=== PATIENT | female | born 1965 | race Caucasian/White ===

== ENCOUNTER 2018-01-17 15:33 | Emergency (ER) | payer BC, SELFPAY ==
--- NOTE | 2018-01-17 15:33 | DT_ITS ---
This patient was seen during an EMR downtime January 10, 2018 - January 17, 2018. This patient may have a combination of paper and electronic documentation or all paper documentation. All documentation is viewable within the e-chart portion of [employer] for each patient visit.
[2018-01-17 15:34] VITALS: BP 114/80; PULSE 68; RESP 16; TEMP 36; O2SAT 97; BMI 25.4
--- NOTE | 2018-01-17 15:46 | ED.DCSUM_ITS ---
- ER Visit Summary Date of Service: 01/17/18 Chief Complaint: Left foot injury History of Present Illness: The patient is a 52 F who was helping her tear apart a wooden deck 3 days ago. She states she was using a large tool with a crowbar 1 and and a heavy hammer on the other. The hammer end of the tool came down landing on her left foot. She was wearing rubber boots at the time. She continues to have pain of the distal aspect of her left foot. She is not taking anything for pain. Physical Examination: Vital signs are unremarkable. Patient sitting upright in bed no acute distress. Physical examination significant for lower extremity which reveals tenderness palpation over the distal portion of the midfoot on the left as well as the first and second toes. There are some superficial abrasions on the first and second toes. There is normal cap refill. There is no tenderness the ankle. Test Results: Left foot x-rays reveal no evidence of fracture or dislocation. Emergency Department Course and Treatment: Patient is given naproxen for pain. Test results were discussed with patient and family at bedside. She be given a postop shoe. She declines need for crutches. Treatment Plan: [] Disposition: Discharge Impression: Crush injury left foot This note was generated with [employer] dictation software. It may contain incorrect words, spelling, and punctuation that were not noted in review of the chart prior to signing ED Disposition - Plan for ED Patient: Chief Complaint: Lower Extremity Injury Referrals: Ezequiel Najera MD [Primary Care Provider] -
--- NOTE | 2018-01-17 16:15 | RAD_ITS ---
STUDY: X-RAY - LEFT FOOT CLINICAL: Female, 52 years old. Pain TECHNIQUE: 3 view(s) of the foot. COMPARISON: None. FINDINGS: There is no evidence of fracture or dislocation. There are no significant degenerative changes. There are no radiodense foreign bodies. RAD/Foot min 3 Views IMPRESSION: No fracture or dislocation. Electronically Signed: Jerardo Robbins, at 16:44 EDT Tel , Service support ,
[2018-01-17] MEDS: Naproxen 500 MG Tablet PO (16:43)
--- NOTE | 2018-01-17 17:04 | ED.DEP ---
ED Disposition - Plan for ED Patient: Disposition: Home or Assisted Living Chief Complaint: Lower Extremity Injury Instructions: ED Crush Injury Toe No Fx Referrals: Ezequiel Najera MD [Primary Care Provider] - 1 Week if not improving
== END 2018-01-17 17:21 | disposition home or self-care (01) ==
PROVIDERS: Emergency Provider Emergency Medicine; Family Provider Family Medicine; PCP Family Medicine
DX: S90.412A Abrasion, left great toe, initial encounter (principal); S90.415A Abrasion, left lesser toe(s), initial encounter; X58.XXXA Exposure to other specified factors, initial encounter; Y93.89 Activity, other specified; Y92.9 Unspecified place or not applicable; Y99.9 Unspecified external cause status; Z79.899 Other long term (current) drug therapy
CPT/HCPCS: 73630; 99283

== ENCOUNTER 2018-02-15 08:22 | Day surgery (SDC) | payer BC, SELFPAY ==
--- NOTE | 2018-02-15 | IMM_PTH ---
PATIENT: CHANCE MCFARLAND LOC: [facility] U#:[id number] AGE/SX: 52/F ROOM: RE02/15/[address]: Dr. Isaías Hayward MD : 1965 BED: DIS: 02/15/2018 SPEC #: [id number] RECD: 02/16/18 13:49 STATUS: DARIUSZ LEROY #: [id number] LILIAN: 02/15/18 00:[address]: Isaías Hayward DEPT: IMMUNOHISTOCHEMISTRY RECD BY: Brittany Stuart ENTERED: 02/16/18 13:49 SP TYPE: IMMUNO OTHR DR: Dr. Ezequiel Najera MD Tissues: A - Pylorus Procedures: H Pylori (initial) PHYSICIAN & INSTITUTION [place] [id number] SPECIMEN INFORMATION: Tissue Source: A ? Pyloric biopsy Clinical Info: GERD Specimen Number: [id number] CPT code: 89418 METHODOLOGY: Deparaffinized sections of prefer/formalin-fixed tissue or PAP/DQ stained slides are incubated with monoclonal/polyclonal antibodies/oligonucleotide probes. Localization is made via biotin free immunoperoxidase method. Appropriate controls are performed and reacted as expected. Results on target cell population are indicated in the following table: RESULTS: ANTIBODY / CLONE RESULT Block A H Pylori (polyclonal) negative These tests were developed and their performance characteristics determined by [facility]. They may not have been cleared or approved by the U.S. Food and Drug Administration. The FDA has determined that such clearance or approval is not necessary. INTERPRETATION: A. Pyloric biopsy: Negative for Helicobacter pylori organisms. SJ:neyda 02/16/18
[2018-02-15 08:47] VITALS: BP 114/69; PULSE 50; RESP 16; TEMP 36.7; O2SAT 98; BMI 24.7
--- NOTE | 2018-02-15 09:30 | COLBX_PTH ---
PATIENT: CHANCE MCFARLAND LOC: [facility] U#:[id number] AGE/SX: 52/F ROOM: RE02/15/[address]: Dr. Isaías Hayward MD : 1965 BED: DIS: 02/15/2018 SPEC #: [id number] RECD: 02/15/18 12:37 STATUS: DARIUSZ LEROY #: [id number] LILIAN: 02/15/18 09:[address]: Isaías Hayward DEPT: SURGICAL PATHOLOGY RECD BY: Sabina Hilton ENTERED: 02/15/18 14:17 SP TYPE: COLON BX OTHR DR: Dr. Ezequiel Najera MD Tissues: A - Pyloric portion of stomach B - Sigmoid colon biopsy Procedures: Special Stain Group II Surgery Specimen Level IV Alcian Blue/PAS (control) HEADER OPERATION: Colonoscopy, EGD ([facility] [place] PRE-OP DIAGNOSIS: GERD with esophagitis, screening for colon cancer TISSUE SUBMITTED: A. Pyloric biopsy, B. Sigmoid polyp MICROSCOPIC DIAGNOSIS A. Pyloric biopsy: Mild gastritis. Focal intestinal metaplasia. See microscopic description and comment. B. Sigmoid polyp, biopsy: Fragments of colonic mucosa, no pathologic diagnosis. SJ:neyda 02/16/18 COMMENT A. The results of immunohistochemistry for Helicobacter pylori will be reported separately ([id number]). Alcian blue/PAS stain with matched control is used in the evaluation of the specimen. MICROSCOPIC DESCRIPTION Slides are reviewed. A. The specimen shows fragments of gastric mucosa with chronic inflammatory cell infiltrates in the lamina propria consisting of lymphocytes and plasma cells, consistent with mild chronic gastritis. Focal intestinal metaplasia is also noted. GROSS DESCRIPTION A - Received in fixative is one container labeled with the patient's name and designated pyloric biopsy. The specimen consists of two irregular fragments of light wong soft tissue that in aggregate measure 0.5 x 0.5 x 0.1 cm. The specimen is totally submitted in one cassette. B - Received in fixative is one container labeled with the patient's name and designated sigmoid polyp. The specimen consists of multiple irregular fragments of light wong soft tissue that in aggregate measure 1 x 0.5 x <0.1 cm. The specimen is totally submitted in one cassette. / AM:neyda 02/15/18 TC:3 CPT: 32814 x2, 55208
[2018-02-15 10:10] VITALS: BP 114/69; BP 87/62; PULSE 57; RESP 15; TEMP 36.4; O2SAT 100
[2018-02-15 10:15] VITALS: BP 114/69; BP 89/67; PULSE 52; RESP 16; O2SAT 100
[2018-02-15 10:20] VITALS: BP 114/69; BP 93/72; PULSE 48; RESP 16; O2SAT 100
[2018-02-15 10:25] VITALS: BP 114/69; BP 95/67; PULSE 46; RESP 16; TEMP 36.4; O2SAT 100
[2018-02-15 10:43] VITALS: BP 114/69
--- NOTE | 2018-02-15 11:05 | OP.PCM_ITS ---
Problem List (1) GERD (gastroesophageal reflux disease) Status: Acute Qualifiers: Esophagitis presence: without esophagitis Qualified Code(s): K21.9 - Gastro -esophageal reflux disease without esophagitis (2) Dysphagia Status: Acute Qualifiers: Dysphagia type: esophageal phase Qualified Code(s): R13.10 - Dysphagia, unspecified (3) Screen for colon cancer Status: Acute Report of Operation Date of Procedure: 02/15/18 Pre-Operative Diagnosis: 1. GERD. 2. Dysphasia. 3. Screening colon cancer Post-Operative Diagnosis: 1. Healing pyloric ulcer. 2. Sigmoid colon polyp Surgery/Procedure Performed:: 1. EGD with biopsy. 2. Colonoscopy with snare polypectomy Specimen's removed: 1. Antrum biopsy. 2. Sigmoid polyp Description of Procedure: The major risks and benefits associated with the procedure were explained to the patient in detail. The patient verbalized understanding and agreement with the same. The patient was then placed in the left lateral decubitus position. IV sedation was started by anesthesia. The endoscope was then advanced under direct visualization over the tongue, into the esophagus , stomach and duodenum. It was slowly withdrawn and the mucosa was carefully evaluated. Duodenal mucosal abnormalities were not visualized. The patient did appear to have a healing ulcer in the prepyloric region. This was biopsied. Antegrade and retrograde views of the stomach were normal and did not reveal a hiatal hernia or ulceration. Gastric folds were normal. A biopsy of the antrum was performed with cold forceps. The scope was then withdrawn through the GE junction and careful examination did not demonstrate any mucosal abnormalities. There was no stricture in the distal esophagus to explain the patient's dysphagia. No evidence of Mcneill's esophagus was apparent. Careful examination of the remainder of the esophagus was normal. The scope was then withdrawn from the patient. The patient was then turned for the colonoscopy portion of the procedure. A digital rectal exam was performed. This examination was within normal limits. A well-lubricated colonoscope was then inserted into the rectum and advanced under direct visualization to the level of the cecum. The bowel prep was good. The cecum was identified by both visual and anatomic landmarks. A photograph was taken of the end of the cecum. The scope was then fully withdrawn while examining the color, texture, anatomy and integrity of the mucosa from the cecum to the anal canal. The findings were consistent with normal colonic mucosa. The patient did have one small polyp in the proximal sigmoid colon which was removed with cautery snare. Upon reaching the rectum the scope was retroflexed to examine the distal rectal vault. The scope was then straightened and was completely retrieved upon exiting the anal canal and the procedure was terminated. The patient was then transferred to the recovery room in stable condition. Recommendations for follow up: Dependent upon pathology
== END 2018-02-15 10:44 | disposition home or self-care (01) ==
LOC: EN 08:23 → AC 08:25
PROVIDERS: Family Provider Family Medicine; PCP Family Medicine; Visit Provider Surgery
PROC: 0DJD8ZZ Inspection of Lower Intestinal Tract, Via Natural or Artificial Opening Endoscopic (ICD-10-PCS; CPT 45378; principal; 2018-02-15 09:25)
DX: Z12.11 Encounter for screening for malignant neoplasm of colon (principal); K29.70 Gastritis, unspecified, without bleeding; K63.5 Polyp of colon; K58.1 Irritable bowel syndrome with constipation; K21.0 Gastro-esophageal reflux disease with esophagitis; R13.10 Dysphagia, unspecified; I48.92 Unspecified atrial flutter; J42 Unspecified chronic bronchitis; M85.80 Other specified disorders of bone density and structure, unspecified site; F32.9 Major depressive disorder, single episode, unspecified; F41.9 Anxiety disorder, unspecified; F17.200 Nicotine dependence, unspecified, uncomplicated; Z79.899 Other long term (current) drug therapy; Z87.11 Personal history of peptic ulcer disease; Z86.2 Personal history of diseases of the blood and blood-forming organs and certain disorders involving the immune mechanism; Z90.710 Acquired absence of both cervix and uterus
CPT/HCPCS: 43239; 45384; 88305; 88307; 88313; 88342; J7120

== ENCOUNTER → 2018-02-15 12:42 | Outpatient (CLI) | payer BC, SELFPAY | PROVIDERS: Family Provider Family Medicine; PCP Family Medicine; Visit Provider Surgery | DX: Z12.11 Encounter for screening for malignant neoplasm of colon (principal); K21.0 Gastro-esophageal reflux disease with esophagitis ==

== ENCOUNTER → 2018-10-11 13:09 | Outpatient (CLI) | payer BC, SELFPAY ==
--- NOTE | 2018-10-11 13:45 | MRI_ITS ---
STUDY: MRI RIGHT FOREFOOT WITHOUT CONTRAST REASON FOR EXAM: Female, 53 years old. Exostosis dorsal right foot. Osteoarthritis. Pain. TECHNIQUE: Standardized fat and water weighted pulse sequences were obtained in all 3 orthogonal planes. COMPARISON: X-ray January 17, 2018 FINDINGS: There is degenerative arthrosis of the first tarsometatarsal articulation with spurring on the dorsal aspect of the midfoot, series 6 image 12/24. There is degenerative arthrosis with a joint of effusion of the metatarsophalangeal joint of the hallux. Normal tibial and fibular sesamoids, with normal sesamoids-first metatarsal articulations. Normal interphalangeal joint of the hallux. Normal proximal and distal phalanges of the great toe. Normal medial and lateral heads of the flexor hallucis brevis tendons. Normal flexor and extensor hallucis longus tendons. Normal second through fifth metatarsophalangeal (MTP) joints. Normal interphalangeal joints of the second through fifth toes. Normal proximal, middle and distal phalanges of the second through fifth toes. Normal first through fourth intermetatarsal spaces. Normal flexor and extensor tendons of the second through fifth toes. Normal visualized metatarsi. Normal intrinsic muscles of the forefoot. There is no demonstrated soft tissue abnormality. There is no demonstrated fracture. MRI/Lower Ext/No Jt/w/o IMPRESSION: Arthritic change of the first tarsometatarsal and metatarsophalangeal joints with spurring. Electronically Signed: Clif Ricardo MD at 19:24 EST , Service support ,
== END ==
PROVIDERS: Family Provider Family Medicine; PCP Family Medicine; Referring Provider Podiatrist; Visit Provider Podiatrist
DX: M89.9 Disorder of bone, unspecified (principal); M19.071 Primary osteoarthritis, right ankle and foot
CPT/HCPCS: 73718

== ENCOUNTER → 2018-11-08 16:46 | Outpatient (CLI) | payer BC, SELFPAY ==
[2018-11-08 17:44] LABS: Absolute Lymphocyte Count 2.96 X10^3/ul (0.83-4.51); Absolute Neutrophil Count 4.5 X10^3/uL (2.0-7.7); Basophil# 0.04 X10^3/uL; Basophil% 0.5 % (0-1); Eosinophil# 0.28 X10^3/uL; Eosinophils% 3.3 % (0-5); Hematocrit 45.1 % (37-47); Hemoglobin 14.8 g/dl (12.0-15.0); Lymphocyte # 2.96 X10^3/ul (4.0); Lymphocyte % 34.5 % (19-41); Mean Corp Hgb Conc 32.8 g/gl (32-36); Mean Corpuscular Hgb 30.9 pg (27.0-32.0); Mean Corpuscular Volume 94.2 fL (81-99); Mean Platelet Vol. 11.2 fl (6.2-12.0); Monocyte# 0.85 X10^3/uL; Monocyte% 9.9 % (0-10); Neutrophil # 4.45 X10^3/uL (2.7-7.7); Neutrophil % 51.7 % (47-70); Platelet Count 206 K/mm3 (150-450); RBC Distribution Width CV 12.9 % (11.6-14.6); RBC Distribution Width SD 44.6 fl (35.1-43.9); Red Blood Count 4.79 M/mm3 (4.2-5.4); White Blood Count 8.6 K/mm3 (4.4-11.0)
[2018-11-08 17:48] LABS: POSITIVE COUNT NO; POSITIVE DIFFERENTIAL NO; POSITIVE MORPHOLOGY NO
[2018-11-08 18:02] LABS: ALB/GLOB Ratio 1.2 RATIO (0.9-2.4); AST(SGOT) 28 U/L (15-37); Alanine Aminotransfer ALT/SGPT 36 U/L (13-56); Albumin, Serum 4.1 g/dL (3.2-5.0); Alkaline Phosphatase 92 U/L (45-117); Anion Gap 7 (5-15); BUN 20 mg/dL (7-18); Calcium,Total 8.8 mg/dL (8.5-10.1); Chloride 104 mmol/L (98-107); Creatinine, Serum 1.11 mg/dL (0.55-1.02); EST Glomerular Filtration Rate 55 mL/min (>60); Est Glom Filt Rate - Afr Amer 66 mL/min (>60); Globulin 3.5 g/dL (2.2-4.2); Glucose 82 mg/dL (74-106); Potassium 3.8 mmol/L (3.5-5.1); Protein, Total 7.6 g/dL (6.4-8.2); Sodium Level 139 mmol/L (136-145)
[2018-11-08 18:06] LABS: Vitamin D,25 Hydroxy 21.7 ng/mL (29.95-100.01)
== END ==
PROVIDERS: Family Provider Family Medicine; PCP Family Medicine; Referring Provider Family Medicine; Visit Provider Family Medicine
DX: Z01.818 Encounter for other preprocedural examination (principal); M19.071 Primary osteoarthritis, right ankle and foot; M81.0 Age-related osteoporosis without current pathological fracture
CPT/HCPCS: 36415; 80053; 82306; 85025

== ENCOUNTER 2018-11-11 05:22 | Day surgery (SDC) | payer BC, SELFPAY ==
[2018-11-11] VITALS (10 sets, daily range): BP systolic 90–129; BP diastolic 66–89; PULSE 52–65; RESP 14–18; TEMP 36.7–37.1; O2SAT 92–100; BMI 25.6
[2018-11-11] MEDS: Cefazolin 2 GM in 0.9% Normal Saline 100 ML IV (07:30)
--- NOTE | 2018-11-11 07:30 | BUN_PTH ---
PATIENT: CHANCE MCFARLAND LOC: [facility] [place] U#:[id number] AGE/SX: 53/F ROOM: RE11/11/[address]: Dr. Daryl Rodríguez DPM : 1965 BED: DIS: 11/11/2018 SPEC #: [id number] RECD: 11/11/18 11:50 STATUS: DARIUSZ REMaximo #: [id number] LILIAN: 11/11/18 07:[address]: Daryl Rodríguez DEPT: SURGICAL PATHOLOGY RECD BY: Bandar Johnson ENTERED: 11/11/18 13:55 SP TYPE: ALEXY MCMULLEN DR: Dr. Ezequiel Najera MD Tissues: Bone of foot, NOS Procedures: Decalcification bone/plaque Surgery Specimen Level IV HEADER OPERATION: First tarsometatarsal joint Lapidus arthrodesis, right foot PRE-OP DIAGNOSIS: Arthritis right foot TISSUE SUBMITTED: Excess stones right foot MICROSCOPIC DIAGNOSIS Bone and soft tissue of right foot, excision: Reparative and reactive change. No evidence of acute osteomyelitis. AM:neyda 11/16/18 MICROSCOPIC DESCRIPTION Slides are reviewed. GROSS DESCRIPTION Received in fixative is one container labeled with the patient's name and designated excess stones right foot. The specimen consists of multiple fragments of bone that in aggregate measure 2 x 1.5 x 0.3 cm. The entire specimen is submitted in one cassette after decalcification. / SJ:neyda 11/11/18 TC:5 CPT: 53030, 02056
--- NOTE | 2018-11-11 07:37 | DCINST_ITS ---
Discharge Diet: Light diet - advance as tolerated Discharge Activity: May Not Drive Weight Bearing Status: No weight bearing - No weightbearing right foot Keep extremity elevated above heart level: Right Leg - Keep right foot elevated using pillows for at least 50 minutes of every hour Call your doctor if your incision/area has: Continuous Slow Oozing, Sudden Increased Bleeding, Foul Smelling Discharge Call your doctor if you observe: Fever of 101 or Higher, Shortness of breath, Chest pain, Calf discomfort, Uncontrolled pain Cleanse incision/area with: Do not get Incision Wet, Keep Dressing Clean & Dry Allergies/Adverse Reactions: Allergies codeine Allergy (Verified 11/09/18 14:44) Angioedema Medications to take at Discharge ALPRAZolam [Xanax] 1 tab PO BID PRN 02/21/17 Escitalopram Oxalate [Lexapro] 20 mg PO DAILY 02/21/17 Cefadroxil [Duricef] 500 mg PO Q12H #10 cap 11/11/18 Ergocalciferol (Vitamin D2) [Vitamin D2] 50,000 unit PO Q7D #6 cap 11/11/18 Ibuprofen 400 mg PO Q6H #40 tab 11/11/18 traMADol [Ultram] 50 mg PO Q6H PRN PRN 5 Days #30 tab 11/11/18 The following prescriptions were given: traMADol [Ultram] 50 mg PO Q6H PRN PRN 5 Days #30 tab PRN Reason: Pain Cefadroxil [Duricef] 500 mg PO Q12H #10 cap Ergocalciferol (Vitamin D2) [Vitamin D2] 50,000 unit PO Q7D #6 cap Ibuprofen 400 mg PO Q6H #40 tab Primary Care Physician: Ezequiel Najera MD [Primary Care Provider] - Test Results: Test results from this visit will be discussed in further detail at your follow- up appointment, if applicable. Please Follow Up With: Daryl Rodríguez DPM When: within 1 week, sooner if needed
--- NOTE | 2018-11-11 07:45 | RAD_ITS ---
STUDY: X-RAY - RIGHT FOOT CLINICAL: Female, 53 years old. Status post arthrodesis. TECHNIQUE: 2 C-arm view(s) of the foot. 1 minute 49 seconds fluoroscopy time. COMPARISON: 12/25/2013.. FINDINGS: 2 limited [id number] images show surgical arthrodesis with compression plate and several screws across the first tarsometatarsal joint. Correlate with procedure note. Electronically Signed: Ravi Olmedo MD at 12:00 EDT , Service support , RAD/Foot 2 Views
[2018-11-11] MEDS: Heparin 10,000 UNITS/10 ML Vial 10000 UNITS (08:30)
[2018-11-11] MEDS: Bupivacaine Mpf 0.5% 30 ML VIAL (10:00)
--- NOTE | 2018-11-11 10:16 | RAD_ITS ---
STUDY: X-RAY - RIGHT FOOT CLINICAL: Female, 53 years old. Postop. TECHNIQUE: 3 view(s) of the foot. COMPARISON: Right foot, November 11, 2018) 0.733 hours). December 25, 2013. FINDINGS: Normal talus, calcaneus, and tarsal bones. Again seen is evidence of surgical fusion of the first tarsometatarsal articulation unchanged from the earlier exam. Otherwise normal visualized subtalar, talonavicular, calcaneocuboid, tarsal and tarsometatarsal articulations. Normal metatarsi. Normal metatarsophalangeal joint of the great toe. Normal tibial and fibular sesamoid bones. Normal interphalangeal joint of the great toe. Normal phalanges of the great toe. Normal second through fifth metatarsophalangeal joints. Normal interphalangeal joints and phalanges of the lesser toes. The soft tissue structures are unremarkable. RAD/Foot min 3 Views IMPRESSION: Surgical fusion of the first tarsometatarsal joint. Electronically Signed: Nilay Alejandre DO at 16:54 EDT Tel [phone], Service support ,
--- NOTE | 2018-11-11 10:20 | OP.PCM_ITS ---
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 bone marrow aspiration and injection of concentrated bone marrow aspirate to fusion site right foot hearing instrument specialist: yes - Dr. Asha Daley Type of Anesthesia:: General Specimen's removed: Exostosis from 1st metatarsal cuneiform joint right foot sent to pathology Estimated Blood Loss (mL): 10mL Description of Procedure: Indications: This is a 53 year old female with history of significant degenerative changes of the 1st metatarsal cuneiform joint, only getting worse. Given the continued symptoms despite previous nonsurgical and surgical care, she elected to under go surgical intervention - 1st metatarsal cuneiform lapidus arthrodesis bunionectomy, along with bone marrow aspiration and in jection/placement of concentrated bone marrow aspirate and graft to surgical site. This was discussed with her in great detail, reviewed the procedures, as well as the rationale of the procedures with her in great detail. We discussed and reviewed the possible benefits vs risks/potential complications. The estimated healing/recovery time and protocol were reviewed with her in detail. Reviewed the goals and the expectations. She expressed understanding and agreement and elected to proceed forward with surgical intervention as noted above. The consent forms were reviewed with her and she freely signed them. All of her questions were answered. No guarantees were given or implied. She was cleared from medical standpoint to proceed with surgery. Also of note she relates she has quit tobacco/smoking. Operative Procedure: The patient was brought back into the operating room and was placed on the operating table in the supine position. Patient was carefully secured to the operating room table with a safety belt around her waist. A time out was performed and the patient was properly identified and the surgical plan was confirmed. The patient received IV antibiotic prophylaxis - 2g of Ancef. The patient received spinal anesthesia per the anesthesiologist. A well padded pneumatic tourniquet was applied around her right ankle. The right foot was scrubbed, prepped, and draped in the usual aseptic fashion. Attention was directed to the right foot, there was noted to be significant exostosis spurring of the 1st metatarsal cuneiform joint. A Jamshidi needle was inserted into the safe zone of the lateral calcaneus, a total of 50mL of bone marrow aspirate was obtained. This was spun down to concentrated bone marrow aspirate to be placed into the 1st metatarsal cuneiform arthrodesis site. The right foot was exsanguinated using an Esmarch bandage and the right ankle pneumatic tourniquet was inflated to 250mmHg. A linear longitudinal skin incision was medially along the medial 1st metatarsal cuneiform joint. This was done using a 15 blade. Careful dissection was completed down to the capsule of the 1st metatarsal cuneiform joint, and it was incised using a 15 blade and partially reflected exposing the joint surfaces. There was noted to be significant degenerative changes of the joint with exostosis/osteophytes present. The cartilage was significantly worn. The exostosis/osteophytes were removed and sent to pathology. All cartilage from the 1st metatarsal cuneiform joint surfaces (posterior aspect of the base of the 1st metatarsal and the anterior aspect of the medial cuneiform) was debrided away and was removed down to bleeding bone. This was done with a curette. The site was flushed out with copious amounts of normal saline solution. The surfaces were fenestrated using an osteotome as well as a powered drill to aid fusion. The site was fixated use rigid open reduction internal fixation, using 1 Arthrex plantar plate, using a total of 4 locking screws and 2 nonlocking screws both of which were a compression screws across the fusion site. The surgical site was flushed with copious amounts of normal saline solution. There was very good compression and bone to bone contract with the prepped fusion site, in good alignment, but there was slight bone void medially at the arthrodesis site which was packed with DBX paste (<0.25mL was and needed to be used). The concentrated bone marrow aspirated was injected into the arthrodesis site. The arthrodesis site was rigid and very stable. This was checked and confirmed with intraoperative fluoroscopy. Tissues were healthy and viable at this time. The subcutaneous tissue layers were reapproximated using 3-0 Vicryl and the skin was reapproximated using 4-0 Monocryl. Cavailon was painted to the edges of the sutured skin incision and steristrips were applied across the sutured skin incision. 10 mL of 0.5% Bupivacaine plain was given as a lock block around the surgical site for further pain control. The pneumatic tourniquet was (total tourniquet time was 99 minutes), there was immediate return of warmth and perfusion to the foot and to all toes on the foot with normal temperature gradient and CFT < 2 seconds to all toes once the tourniquet was deflated. A dressing was applied which consisted of betadine soaked adaptic, 4x4 gauze, kerlix, and an eliazar bandage. Of note, hemostasis was achieved prior to closure. Of note, all vital structures including all vital neurovascular and tendon structures were properly identified, protected, and retracted as necessary throughout the above operative procedures. The anterior tibial tendon was left intact. The patient tolerated the above operative procedures well at the anesthesia well with no complication. The patient was transported from the operating room to the recovery room with vital signs stable and in good condition. Post operative orders were placed. Post operative instructions were reviewed with her and her family who was with her. No weightbearing right foot foot, keep right foot elevated for at least 50 minutes of every hour, keep dressing and splint clean, dry and intact. The patient received a right lower extremity popliteal block per the anesthesia service. A prescription for vitamin d 50,000 units once a week was prescribed, Tramadol 50mg PO q 6 hours prn pain, Ibuprofen 400mg PO q 6 hours prn pain, and Cefadroxil 500mg PO q 12 hours to help prevent infection. Post operative xrays were obtained in the recovery room (DP, Oblique, and lateral foot) - there was again noted to be 1st metatarsal cuneiform arthrodesis bunionectomy with joint surfaces in good alignment and good bone to bone contract with intact hardware; no acute problems or complications seen. Patient to follow up with me in office within 1 week, sooner if needed. Grafts/Implants Used: 1 arthrex plantar plate and screws, concentrated bone marrow aspirate - Complications None
[2018-11-11] MEDS: traMADol 50 MG Tablet PO (12:43)
== END 2018-11-11 14:02 | disposition home or self-care (01) ==
LOC: SDC 05:22 → AC 05:23
PROVIDERS: Family Provider Family Medicine; PCP Family Medicine; Referring Provider Podiatrist; Visit Provider Podiatrist
PROC: (CPT 28292; principal; 2018-11-11 07:15)
DX: M19.071 Primary osteoarthritis, right ankle and foot (principal); M25.774 Osteophyte, right foot; I48.91 Unspecified atrial fibrillation; D64.9 Anemia, unspecified; K58.1 Irritable bowel syndrome with constipation; F32.9 Major depressive disorder, single episode, unspecified; F41.9 Anxiety disorder, unspecified; K21.9 Gastro-esophageal reflux disease without esophagitis; F17.200 Nicotine dependence, unspecified, uncomplicated; Z86.010 Personal history of colon polyps
CPT/HCPCS: 28297; 20999; 64450; 73620; 73630; 76000; 88304; 88305; 88311; C1713; J7120; J2405

== ENCOUNTER → 2018-12-29 18:03 | Outpatient (CLI) | payer BC, SELFPAY ==
[2018-11-11 05:51] VITALS: BMI 25.6
== END ==
PROVIDERS: Family Provider Family Medicine; PCP Family Medicine; Referring Provider Family Medicine; Visit Provider Podiatrist
DX: L03.115 Cellulitis of right lower limb (principal)
CPT/HCPCS: 87070; 87075; 87077; 87186; 87205

== ENCOUNTER → 2019-06-05 13:13 | Outpatient (CLI) | payer BC, SELFPAY ==
[2018-11-11 05:51] VITALS: BMI 25.6
--- NOTE | 2019-06-05 13:16 | RAD_ITS ---
STUDY: X-RAY CHEST REASON FOR EXAM: Female, 53 years old. Pain. TECHNIQUE: PA and lateral views of the chest. COMPARISON: 02/21/2017. FINDINGS: The lungs are clear and expanded. There is no demonstrated pleural abnormality. Normal size heart. Normal mediastinum and ruth. Normal visualized pulmonary arteries. Normal visualized aortic arch and descending thoracic aorta. There are mild degenerative changes of the visualized thoracic spine. Normal visualized ribs, clavicles, and shoulders. There is no demonstrated abnormality of the visualized soft tissue structures of the upper abdomen. RAD/Chest PA and Lateral IMPRESSION: No acute cardiac pulmonary disease. Electronically Signed: Shabnam Chavez MD at 1:44 EDT , Service support ,
== END ==
PROVIDERS: Family Provider Family Medicine; PCP Family Medicine; Referring Provider Family Medicine; Visit Provider Family Medicine
DX: J40 Bronchitis, not specified as acute or chronic (principal)
CPT/HCPCS: 71046

== ENCOUNTER → 2019-12-12 14:58 | Outpatient (CLI) | payer BC, SELFPAY ==
[2018-11-11 05:51] VITALS: BMI 25.6
--- NOTE | 2019-12-12 15:05 | RAD_ITS ---
STUDY: X-RAY CHEST REASON FOR EXAM: Female, 54 years old. Chest pain, cough, fever TECHNIQUE: PA and lateral views of the chest. COMPARISON: Comparison is made with prior examination dated June 05, 2019. FINDINGS: Hyperinflation. Scattered calcified granulomas. The lungs are clear. There is no demonstrated pleural abnormality. Normal size heart. Normal mediastinum and ruth. Normal visualized pulmonary arteries. There is atherosclerotic tortuosity of the aortic arch and descending thoracic aorta. There is demineralization of the osseous structures. Normal visualized ribs, clavicles, and shoulders. There is no demonstrated abnormality of the visualized soft tissue structures of the upper abdomen. RAD/Chest PA and Lateral IMPRESSION: Hyperinflation. No acute abnormality is seen. Electronically Signed: Ilia Casillas, at 15:46 EDT , Service support ,
[2019-12-12 17:49] LABS: Absolute Lymphocyte Count 3.21 X10^3/uL (0.83-4.51); Absolute Neutrophil Count 4.3 X10^3/uL (2.0-7.7); Basophil# 0.05 X10^3/uL; Basophil% 0.6 % (0-1); Eosinophil# 0.28 X10^3/uL; Eosinophils% 3.3 % (0-5); Hematocrit 46.8 % (37-47); Hemoglobin 15.1 g/dL (12.0-15.0); Lymphocyte # 3.21 X10^3/ul (4.0); Lymphocyte % 37.5 % (19-41); Mean Corp Hgb Conc 32.3 g/dL (32-36); Mean Corpuscular Hgb 30.9 pg (27.0-32.0); Mean Corpuscular Volume 95.7 fL (81-99); Mean Platelet Vol. 11.8 fl (6.2-12.0); Monocyte# 0.74 X10^3/uL; Monocyte% 8.6 % (0-10); NRBC Flagged by Analyzer 0 % (0-5); Neutrophil # 4.26 X10^3/uL (2.7-7.7); Neutrophil % 49.6 % (47-70); Platelet Count 234 K/mm3 (150-450); RBC Distribution Width CV 12.8 % (11.6-14.6); RBC Distribution Width SD 45.3 fl (35.1-43.9); Red Blood Count 4.89 M/mm3 (4.2-5.4); White Blood Count 8.6 K/mm3 (4.4-11.0)
[2019-12-12 18:10] LABS: Anion Gap 4 (5-15); BUN 11 mg/dL (7-18); BUN/Creat Ratio 11.4 RATIO (10-20); Calcium,Total 8.8 mg/dL (8.5-10.1); Chloride 108 mmol/L (98-107); Creatinine, Serum 0.97 mg/dL (0.55-1.02); EST Glomerular Filtration Rate 64 mL/min (>60); Est Glom Filt Rate - Afr Amer 77 mL/min (>60); Glucose 70 mg/dL (74-106); Potassium 3.1 mmol/L (3.5-5.1); Sodium Level 139 mmol/L (136-145); T4 Free Direct 0.87 ng/dL (0.76-1.46); Thyroid Stim Hormone (TSH) 1.29 uIU/mL (0.358-3.74)
== END ==
PROVIDERS: PCP Family Medicine; Referring Provider Family Medicine; Visit Provider Family Medicine
DX: R07.89 Other chest pain (principal); R05 Cough; R53.83 Other fatigue; F41.9 Anxiety disorder, unspecified
CPT/HCPCS: 36415; 71046; 80048; 84439; 84443; 85025

== ENCOUNTER 2019-12-15 19:30 | Emergency (ER) | payer BC, SELFPAY ==
[2018-11-11 05:51] VITALS: BMI 25.6
[2019-12-15 19:31] VITALS: BP 123/87; PULSE 71; RESP 16; TEMP 36.5; O2SAT 99; BMI 24.7
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
--- NOTE | 2019-12-15 19:40 | RAD_ITS ---
STUDY: X-RAY - RIGHT HAND REASON FOR EXAM: Female, 54 years old. PAIN DISTAL 2ND METACARPAL . FALL THIS PM. TECHNIQUE: 3 view(s) of the hand. COMPARISON: None. FINDINGS: Normal radiocarpal articulation. Normal distal radioulnar joint. Normal visualized carpal bones. Normal carpal articulations Normal carpometacarpal articulation of the thumb. Normal second through fifth carpometacarpal joints. Normal metacarpi. Normal metacarpophalangeal joint of the thumb. Normal interphalangeal joint of the thumb. Normal proximal and distal phalanges of the thumb. Normal metacarpophalangeal joints of the second through fifth fingers. Normal proximal and distal interphalangeal joints of the second through fifth fingers. Normal phalanges of the second through fifth fingers. The soft tissue structures are unremarkable. RAD/Hand Min 3 Views IMPRESSION: Normal x-ray examination of the hand. Electronically Signed: Ravi Olmedo MD at 19:53 EDT , Service support ,
--- OUTSIDE RECORDS SUMMARY | 2020-05-21 07:54 | XMS RPT_ITS | CCD ---
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 Interpretation 017 [facility] ([id number]) VA Interval 136 ms 02-02-2017 - [place] 02-02-2017 [facility] ([id number]) VA interval, 136 ms Invalid 02-02-2017 - [facility] electrocardiogram Interpretation 017 [facility] ([id number]) Pulse (Heart Rate) 59 BPM /min Invalid 02-02-2017 - [facility] Interpretation 02-02-2017 Hear t Code [facility] ([id number]) QRS axis, 36 deg Invalid 02-02-2017 - [facility] electrocardiogram Interpretation 017 [facility] ([id number]) QRS Duration 86 ms 02-02-2017 - [facility] 02-02-2017 [facility] ([id number]) QRS duration, 86 ms Invalid 02-02-2017 - [place] electro[facility]ogram Interpretation 017 [facility] ([id number]) QT Interval new path ms 02-02-2017 - [place] 02-02-2017 [facility] ([id number]) QT interval, new path ms Invalid 02-02-2017 - [place] electrocardiogram Interpretation 017 [facility] ([id number]) QTc Meyer 405 ms 02-02-2017 - [place] 02-02-2017 [facility] ([id number]) T Johnston 41 deg 02-02-2017 - [facility] 02-02-2017 [facility] ([id number]) T wave axis, 41 deg Invalid 02-02-2017 - [facility] electro[facility]ogram Interpretation 017 [facility] ([id number]) office visit on 02-11-27 Documentation of Done Invalid 02-02-2017 - [facility] current medications Interpretation Code 02-02-2017 Group ([id number]) (procedure) Protein mass conc yes 02-02-2017 - [facility] 02-02-2017 Group (44 691) Protein mass conc Done 02-02-2017 - [facility] 02-02-2017 Group (44 691) Smoking cessation yes Invalid 02-02-2017 - [facility] education Interpretation Code 02-02-2017 Group ([id number]) (procedure) Tobacco smoking Current every 02-02-2017 - [facility] status NHIS day smoker 02-02-2017 Group ([id number]) Tobacco use CPHS Current every Invalid - [facility] day smoker Interpretation Code 7 Group ([id number]) external other: preferred method of cont act on 2017-02-02 methcontact secmsg 02-02-2017 - [place] [facility] 02-02-2017 Group (44 711) Patient's prefered secmsg Invalid Interpretatio n 02-02-2017 - [facility] method of contact Code 02-02-2017 Steven su ([id number]) office visit: screening colonoscopy on 2017-01-19 Documentation of Done Invalid 01-19-2017 - [facility] current medications Interpretation Code 01-19-2017 Plastic (procedure) Surgery ([id number]) Fall risk No Invalid 01-19-2017 - [facility] assessment Interpretation Code 7 Plastic Surgery ([id number]) Protein mass conc Done 01-19-2017 - [facility] 01-19-2017 Group ([id number] 691) Protein mass conc yes 01-19-2017 - [facility] 01-19-2017 Group (44 691) Smoking cessation yes Invalid 01-19-2017 - [facility] Interpretation Code 01-19-2017 Plastic (procedure) Surgery ([id number]) Tobacco smoking Never Invalid 01-19-2017 - [place] [facility]IS Interpretation Code 01-20-20 17 Plastic Surgery ([id number]) Tobacco smoking Current every 01-19-2017 - [facility] status NHIS day smoker 01-19-2017 Group ([id number]) Tobacco use CPHS Current every Invalid 7 - [facility] day smoker Interpretation Code 7 Plastic Surgery ([id number]) clinical lists update: preload on 2017-01-19 Smoking cessation yes Invalid 01-19-2017 - [facility] Surgical education Interpretation Code 01-19-2017 [facility] (procedure) ([id number]) Tobacco use CPHS Current every Invalid 7 - [facility] Surgical day smoker Interpretation Code 7 [facility] ([id number]) office visit: screening colonoscopy on 2015-08-12 Breast Mammogram Normal Bilateral Invalid 2015 - [facility] screening Interpretation Code 08-12-2015 Plastic Surgery ([id number]) MG Breast Normal Bilateral 08-12-2015 - [facility] screening 08-12-2015 Group (44 691) office visit: screening colonoscopy on 2014-08-13 General categories hysterectomy Invalid 08-13-19 15 - [facility] [interpretation] of Interpretation Code 08-13-2014 Plastic Cervical or vaginal Surgery smear or scraping by ([id number]) Cyto stain General categories hysterectomy 08-13-19 15 - [facility] Cyto stain Interp 08-13-2014 H eart Group (Cervical or vaginal ([id number]) smear or scraping) Vital Signs Vital Sign Description Value / Unit Date Location The following section is limited to 5 en tries per type and includes entries from the following time range: 20170119 - 7. BMI (Body Mass Index) 24.87 kg/m2 03-15-2017 - 03-15-2017 [facility] ([id number]) BMI (Body Mass Index) 24.87 kg/m2 02-02-2017 - 02-02-2017 [facility] ([id number]) BMI (Body Mass Index) 23.96 kg/m2 01-19-2017 - 01-19-2017 [facility] ([id number]) Body Temperature 97.59 [degF] 01-19-2017 - 01-19-2017 [facility] (75362) Body Temperature 97.6 [degF] 01-19-2017 - 01-19-2017 [facility] ([id number]) BP Diastolic 62 mm[Hg] 03-15-2017 - 03-15-2017 [facility] ([id number]) BP Diastolic 74 mm[Hg] 02-02-2017 - 02-02-2017 [facility] (53563) BP Diastolic 82 mm[Hg] 01-19-2017 - 01-19-2017 [facility] ([id number]) BP Systolic 104 mm[Hg] 03-15-2017 - 03-15-2017 [facility] ([id number]) BP Systolic 118 mm[Hg] 02-02-2017 - 02-02-2017 [facility] ([id number]) BP Systolic 124 mm[Hg] 01-19-2017 - 01-19-2017 [facility] ([id number]) Heart rate 59 /min 02-02-2017 - 02-02-2017 [facility] ([id number]) Height 157.48 cm 03-15-2017 - 03-15-2017 [facility] ([id number]) Height 157.48 cm 02-02-2017 - 02-02-2017 [facility] ([id number]) Height 157.48 cm 01-19-2017 - 01-19-2017 [facility] ([id number]) Pulse (Heart Rate) 72 /min 03-15-2017 - 03-15-2017 [place] [facility] ([id number]) Pulse (Heart Rate) 72 /min 02-02-2017 - 02-02-2017 [place] [facility] ([id number]) Pulse (Heart Rate) 58 /min 01-19-2017 - 01-19-2017 [place] [facility] ([id number]) Pulse Oximetry 100 % 01-19-2017 - 01-19-2017 [facility] ([id number]) Respiratory Rate 18 /min 03-15-2017 - 03-15-2017 [facility] ([id number]) Respiratory Rate 18 /min 02-02-2017 - 02-02-2017 [facility] ([id number]) Respiratory Rate 16 /min 01-19-2017 - 01-19-2017 [facility] ([id number]) Weight 61.69 kg 03-15-2017 - 03-15-2017 [facility] ([id number]) Weight 61.69 kg 02-02-2017 - 02-02-2017 [facility] ([id number]) Weight 59.42 kg 01-19-2017 - 01-19-2017 [facility] ([id number]) Encounters Date Type Reason Provider [facility] RAFI GARCIA ([id number]) Procedures Procedure Name Date Provider Location [facility] 03-15-2017 - Ray Abbott MD [facility] 03-15-2017 ([id number]) Follow Up Appt 6 months 03-15-2017 - Ray Abbott [facility] 03-15-2017 ([id number]) *BMP 02-02-2017 - Ray Abbott MD [facility] 02-04-2017 ([id number]) *CBC with Differential 02-02-2017 - Ray Abbott MD [place] [facility] 02-04-2017 ([id number]) *Hepatic Function Panel 02-02-2017 - Ray Abbott [facility] 02-04-2017 ([id number]) Complete sleep workup 02-02-2017 - Ray Abbott [place] [facility] (PSG,CPAP as indicated) & 02-02-2017 ([id number] ) Follow up DJN 02-02-2017 - Ray Abbott MD [facility] 02-02-2017 ([id number]) Echocardiography 02-02-2017 - MD [facility] 02-05-2017 ([id number]) Electrocardiogram, complete 02-02-2017 - Ray Abbott MD [facility] 02-02-2017 ([id number]) Follow Up Appt 1 month 02-02-2017 - Ray Abbott [place] [facility] 02-02-2017 ([id number]) Lipid panel [AGGREGATE] 02-02-2017 - Ray Abbott [facility] [facility] 02-04-2017 ([id number]) Radiofrequency ablation 02-02-2017 [facility] operation for arrhythmia ([id number]) Stress Echocardiogram 02-02-2017 - Ray Abbott MD [place] [facility] (treadmill) 03-17-2017 ([id number]) Thyroid stimulating hormone 02-02-2017 - Ray Abbott MD [facility] (TSH) 02-04-2017 ([id number]) Thyroxine (T4) 02-02-2017 - Ray Abbott MD [facility] 02-04-2017 ([id number]) Screening for malignant 01-19-2017 [facility] neoplasm of colon ([id number]) Plan of Treatment Plan Description Date Location Appointment Appointment 09-27-2017 - [facility] 09-27-2017 ([id number]) Appointment Appointment 03-18-2017 - [facility] 03-18-2017 ([id number]) Appointment Appointment 03-15-2017 - [facility] 03-15-2017 ([id number]) KAMERON MELO 03-15-2017 - [facility] 03-15-2017 ([id number]) Follow Up Appt 6 months Follow Up Appt 6 months 03-15-2017 - [facility] 03-15-2017 ([id number]) Appointment Appointment 02-12-2017 - [facility] 02-12-2017 Surgery ([id number]) Appointment Appointment 02-02-2017 - [facility] 02-02-2017 ([id number]) *BMP *BMP 02-02-2017 - [facility] 02-04-2017 ([id number]) *CBC with Differential *CBC with Differential 02-02-2017 - [facility] 02-04-2017 ([id number]) *Hepatic Function Panel *Hepatic Function Panel 02-02-2017 - [facility] 02-04-2017 ([id number]) Complete sleep workup Complete sleep workup 02-02-2017 [facility] (PSG,CPAP as indicated) & (PSG,CPAP as indicated) & 02-02-2017 ([id number]) Follow up Follow up KAMERON MELO 02-02-2017 - [facility] 02-02-2017 ([id number]) Echocardiogram (complete) Echocardiogram (complete) 02-02-2017 - [facility] 02-02-2017 ([id number]) EKG (In office) EKG (In office) 02-02-2017 - [facility] 02-02-2017 ([id number]) Follow Up Appt 1 month Follow Up Appt 1 month 02-02-2017 - [facility] 02-02-2017 ([id number]) *Lipid Profile CC PCP *Lipid Profile CC PCP 02-02-2017 [facility] [facility] 02-04-2017 ([id number]) 30 Day Holter Monitor 30 Day Holter Monitor 02-02-2017 - [facility] [facility] 02-02-2017 ([id number]) Stress Echocardiogram Stress Echocardiogram 02-02-2017 - [place] [facility] (treadmill) (treadmill) 02-02-2017 ([id number]) *TSH *TSH 02-02-2017 - [facility] 02-04-2017 ([id number]) *T4 (Total) *T4 (Total) 02-02-2017 - [facility] 02-04-2017 ([id number]) Appointment Appointment 01-19-2017 - [facility] Surgical 01-19-2017 [facility] ([id number]) Colonoscopy Colonoscopy 01-19-2017 - [facility] 01-21-2017 Surgery ([id number]) Upper gastrointestinal Upper gastrointestinal 01-19-2017 - [place] [facility] end[facility]; with biopsy endoscopy; with biopsy 01-21-2017 Yas sandoval ([id number]) Payers Payer Name Policy Number [employer] machine [employer] COMP [id number] [facility] ( [id number]) [id number] [facility] ( [id number]) The following information is from the original human readable contentNo Payer Records FoundNo Payer Records FoundNo Payer Records Found Summary Purpose Family History No Family History Records FoundNo Family History Records FoundNo Family History Records Found Advance Directives No Advanced Directives Records FoundNo Advanced Directives Records FoundNo Advanced Directives Records Found Additional Source Comments FOR RECORDS PERTAINING TO PATIENTS WHO ARE OR HAVE BEEN ENROLLED IN A CHEMICAL DEPENDENCY/SUBSTANCE ABUSE PROGRAM, SOME INFORMATION MAY BE OMITTED. This clinical summary was aggregated from multiple sources. Caution should be exercised in using it in the provision of clinical care. This summary normalizes information from multiple sources, and as a consequence, information in this document may materially changethe coding, format and clinical context of patient data. In addition, data may be omittedin some cases. CLINICAL DECISIONS SHOULD BE BASED ON THE PRIMARY CLINICAL RECORDS. [facility] provides no warranty or guarantee of the accuracy or completeness of information in this document. UNRECOGNIZED CONTENT PROVIDED BELOW FOR UNRECOGNIZED SECTION INFORMATION SOURCE DATE CREATED AUTHOR AUTHOR'S ORGANIZATIO N 02/15/2019 [facility] DATE CREATED AUTHOR AUTHOR'S ORGANIZATIO N 05/31/2019 [facility] DATE CREATED AUTHOR AUTHOR'S ORGANIZATIO N 11/06/2019 [facility]
--- OUTSIDE RECORDS SUMMARY | 2020-05-21 07:54 | XMS RPT_ITS | CCD ---
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 Up Appt 6 months Follow Up Appt 6 months 03-15-2017 - [facility] 03-15-2017 ([id number]) Appointment Appointment 02-12-2017 - [facility] 02-12-2017 Surgery ([id number]) Appointment Appointment 02-02-2017 - [facility] 02-02-2017 ([id number]) *BMP *BMP 02-02-2017 - [facility] 02-04-2017 ([id number]) *CBC with Differential *CBC with Differential 02-02-2017 - [facility] 02-04-2017 ([id number]) *Hepatic Function Panel *Hepatic Function Panel 02-02-2017 - [facility] 02-04-2017 ([id number]) Complete sleep workup Complete sleep workup 02-02-2017 - [facility] (PSG,CPAP as indicated) & (PSG,CPAP as indicated) & 02-02-2017 ([id number]) Follow up Follow up KAMERON MELO 02-02-2017 - [facility] 02-02-2017 ([id number]) Echocardiogram (complete) Echocardiogram (complete) 02-02-2017 - [facility] 02-02-2017 ([id number]) EKG (In office) EKG (In office) 02-02-2017 - [facility] 02-02-2017 ([id number]) Follow Up Appt 1 month Follow Up Appt 1 month 02-02-2017 - [facility] 02-02-2017 ([id number]) *Lipid Profile CC PCP *Lipid Profile CC PCP 02-02-2017 - [facility] 02-04-2017 ([id number]) 30 Day Holter Monitor 30 Day Holter Monitor 02-02-2017 - [facility] 02-02-2017 ([id number]) Stress Echocardiogram Stress Echocardiogram 02-02-2017 - [facility] (treadmill) (treadmill) 02-02-2017 ([id number]) *TSH *TSH 02-02-2017 - [facility] 02-04-2017 ([id number]) *T4 (Total) *T4 (Total) 02-02-2017 - [facility] 02-04-2017 ([id number]) Appointment Appointment 01-19-2017 - [facility] Surgical 01-19-2017 [facility] ([id number]) Colonoscopy Colonoscopy 01-19-2017 - [facility] 01-21-2017 Surgery ([id number]) Upper gastrointestinal Upper gastrointestinal 01-19-2017 - [facility]; with biopsy endoscopy; with biopsy 01-21-2017 Yas sandoval ([id number]) Payers Payer Name Policy Number testing shaking shipping'S COMP [id number] [facility] ( [id number]) [id number] [facility] ( [id number]) The following information is from the original [...] BE BASED ON THE PRIMARY CLINICAL RECORDS. [facility] provides no warranty or guarantee of the accuracy or completeness of information in this document. UNRECOGNIZED CONTENT PROVIDED BELOW FOR UNRECOGNIZED SECTION INFORMATION SOURCE DATE CREATED AUTHOR AUTHOR'S ORGANIZATIO N 02/15/2019 [facility] DATE CREATED AUTHOR AUTHOR'S ORGANIZATIO N 05/31/2019 [facility] DATE CREATED AUTHOR AUTHOR'S ORGANIZATIO N 11/06/2019 [facility]
== END 2019-12-15 20:05 | disposition home or self-care (01) ==
LOC: ED 19:53
PROVIDERS: Emergency Provider Emergency Medicine; PCP Family Medicine
DX: S60.021A Contusion of right index finger without damage to nail, initial encounter (principal); W50.1XXA Accidental kick by another person, initial encounter; Y93.83 Activity, rough housing and horseplay; Y92.9 Unspecified place or not applicable; Y99.9 Unspecified external cause status; F17.200 Nicotine dependence, unspecified, uncomplicated; Z79.899 Other long term (current) drug therapy; Z88.5 Allergy status to narcotic agent
CPT/HCPCS: 73130; 99283

== ENCOUNTER → 2021-06-17 | Outpatient (CLI) | payer OTHER, SELFPAY | END | disposition home or self-care (01) | LOC: LABSPEC 16:20 | PROVIDERS: PCP Family Medicine; Visit Provider Family Medicine | DX: U07.1 COVID-19 (principal) | CPT/HCPCS: 87635; U0005; U0003 ==

== ENCOUNTER 2021-06-19 13:28 | Outpatient (CLI) | payer OTHER, SELFPAY ==
[2021-06-19] MEDS: 0.9% Saline Lock 10 ML Syringe IV (13:46)
[2021-06-19 13:48] VITALS: BP 112/78; PULSE 78; RESP 16; TEMP 36.6; O2SAT 99; BMI 25.6
[2021-06-19 14:40] VITALS: BP 102/79; PULSE 63; RESP 16; TEMP 36.8; O2SAT 100
[2021-06-19 15:38] VITALS: BP 94/70; PULSE 58; RESP 16; TEMP 36.6; O2SAT 98
== END 2021-06-19 15:46 | disposition home or self-care (01) ==
LOC: MS3OUT 13:28 → MS3 13:29
PROVIDERS: PCP Family Medicine; Referring Provider Nurse Practitioner Adult Health; Visit Provider Nurse Practitioner Adult Health
DX: Z23 Encounter for immunization (principal); U07.1 COVID-19
CPT/HCPCS: J7050; M0245; Q0245; A4216

== ENCOUNTER → 2022-02-02 | Outpatient (CLI) | payer OTHER, SELFPAY ==
[2022-02-02 08:27] LABS: Absolute Lymphocyte Count 2.24 X10^3/uL (0.83-4.51); Absolute Neutrophil Count 5.4 X10^3/uL (2.0-7.7); Basophil# 0.06 X10^3/uL; Basophil% 0.7 % (0-1); Eosinophil# 0.22 X10^3/uL; Eosinophils% 2.5 % (0-5); Hematocrit 45.5 % (37-47); Lymphocyte # 2.24 X10^3/ul (0.83-4.51); Lymphocyte % 25.9 % (19-41); Mean Corpuscular Hgb 31.3 pg (27.0-32.0); Mean Corpuscular Volume 94.8 fL (81-99); Mean Platelet Vol. 10.8 fl (6.2-12.0); Monocyte# 0.73 X10^3/uL; Monocyte% 8.4 % (0-10); NRBC Flagged by Analyzer 0 % (0-5); Neutrophil # 5.35 X10^3/uL (2.7-7.7); Platelet Count 226 K/mm3 (150-450); RBC Distribution Width CV 12.5 % (11.6-14.6); RBC Distribution Width SD 43.7 fl (35.1-43.9); White Blood Count 8.6 K/mm3 (4.4-11.0)
[2022-02-02 09:09] LABS: AST(SGOT) 24 U/L (15-37); Alanine Aminotransfer ALT/SGPT 29 U/L (13-56); Albumin, Serum 3.9 g/dL (3.2-5.0); Alkaline Phosphatase 87 U/L (45-117); Anion Gap 7 (5-15); BUN 12 mg/dL (7-18); BUN/Creat Ratio 12.6 RATIO (10-20); Calcium,Total 9.1 mg/dL (8.5-10.1); Chloride 108 mmol/L (98-107); Creatinine, Serum 0.96 mg/dL (0.55-1.02); EST Glomerular Filtration Rate 64 mL/min (>60); Est Glom Filt Rate - Afr Amer 78 mL/min (>60); Globulin 3.8 g/dL (2.2-4.2); Glucose 102 mg/dL (74-106); Potassium 2.9 mmol/L (3.5-5.1); Protein, Total 7.7 g/dL (6.4-8.2); Sodium Level 140 mmol/L (136-145)
== END | disposition home or self-care (01) ==
PROVIDERS: PCP Family Medicine; Referring Provider Family Medicine; Visit Provider Family Medicine
DX: Z01.818 Encounter for other preprocedural examination (principal)
CPT/HCPCS: 36415; 80053; 85025

== ENCOUNTER 2022-02-06 05:46 | Day surgery (SDC) | payer OTHER, SELFPAY ==
[2022-02-06] VITALS (7 sets, daily range): BP systolic 96–106; BP diastolic 68–80; PULSE 43–62; RESP 16–18; TEMP 36.7–36.8; O2SAT 97–98; BMI 26.6
[2022-02-06] MEDS: Lactated Ringers 1,000 ML 15 ML IV (06:15)
--- NOTE | 2022-02-06 07:26 | RAD_ITS ---
STUDY: X-RAY - RIGHT FOOT CLINICAL: Female, 56 years old. REMOVAL HARDWARE, RIGHT FOOT TECHNIQUE: 2 view(s) of the foot. COMPARISON: None. FINDINGS: Intraoperative imaging provided for removal of the hardware at the first tarsometatarsal joint. RAD/Foot 2 Views IMPRESSION: Intraoperative imaging provided for removal of the hardware at the first tarsometatarsal joint. Electronically Signed: Ilia Casillas MD at 15:01 EDT ,
--- NOTE | 2022-02-06 07:33 | DCINST_ITS ---
Discharge Instructions Diet Discharge Diet: Light diet - advance as tolerated Activity Discharge Activity: May Not Drive Weight Bearing Status: No weight bearing (No weightbearing right foot.) Keep extremity elevated above heart level: Right Leg (Keep right foot evaluated.) Dressing / Incision Call your doctor if your incision/area has: Continuous Slow Oozing, Sudden Increased Bleeding and Foul Smelling Discharge Call your doctor if you observe: Fever of 101 or Higher, Shortness of breath, Chest pain, Increased palpitations (irregular heartbeat), Calf discomfort and Uncontrolled pain Change Dressing in: leave in place till F/U Remove Dressing in: leave in place till F/U Cleanse incision/area with: Do not get Incision Wet and Keep Dressing Clean & Dry Follow Up Care Please Follow Up With: Daryl Rodríguez DPM When: follow up in 1 week, sooner if needed. Call Dr. Rodríguez if needed: [phone] - cell [phone] - page over weekend Test Results: Test results from this visit will be discussed in further detail at your follow- up appointment, if applicable. Discharge Plan Admission Attending Provider: Daryl Rodríguez Primary Care Provider: Ezequiel Najera Discharge Orders/Prescriptions Prescriptions: New tramadol 50 mg tablet 50 mg PO Q8H PRN (Reason: pain) Qty: 10 0RF No Action potassium chloride 20 mEq Tablet Extended Release 20 meq PO DAILY Referrals / Follow Up: Ezequiel Najera MD [Primary Care Provider] - Disposition Disposition (needs filled in before D/C Order can be placed): Home, Self Care
[2022-02-06] MEDS: Cefazolin 2 GM in 0.9% Normal Saline 100 ML IV (07:38)
[2022-02-06] MEDS: Bupivacaine Mpf 0.5% 30 ML VIAL (07:46)
[2022-02-06] MEDS: Lidocaine 1% /Epi 1:100 (20ml) 20 ML Vial INFILT (07:52)
--- NOTE | 2022-02-06 08:41 | RAD_ITS ---
STUDY: X-RAY - RIGHT FOOT CLINICAL: Female, 56 years old. Post op- hardware removal TECHNIQUE: 3 view(s) of the foot. COMPARISON: None. FINDINGS: Normal talus, calcaneus, and tarsal bones. Normal visualized subtalar, talonavicular, calcaneocuboid, tarsal and tarsometatarsal articulations. The patient is status post hardware removal of the proximal first metatarsal. There is fusion of the first cuneiform bone and first metatarsal. Normal metatarsophalangeal joint of the great toe. Normal tibial and fibular sesamoid bones. Normal interphalangeal joint of the great toe. Normal phalanges of the great toe. Normal second through fifth metatarsophalangeal joints. Normal interphalangeal joints and phalanges of the lesser toes. The soft tissue structures are unremarkable. RAD/Foot min 3 Views IMPRESSION: Fusion of the first cuneiform bone and first metatarsal. Removal of hardware. Electronically Signed: Ilia Casillas MD at 15:01 EDT ,
--- NOTE | 2022-02-06 08:43 | PCM.OPRPT ---
Report of Operation Date of Procedure: 02/06/22 Pre-Operative Diagnosis: Symptomatic hardware right foot Post-Operative Diagnosis: Same Surgery/Procedure Performed:: Removal of hardware from right foot Surgeon: Daryl Rodríguez foot and ankle surgeon: Dr. Perera foot and ankle surgeon: Kylah Type of Anesthesia: Local MAC Specimen's removed: None Estimated Blood Loss (mL): 5mL Description of Procedure: Indications: This is a 56 year old female with history of right 1st metatarsal cuneiform joint arthrodesis in 2019. Foot was doing very well for several years, but now has symptomatic hardware. She has pain to the hardware with shoes and ambulation, which has caused activity modifications. She would like to proceed with hardware removal. This was discussed with her in detail, reviewed the procedures, as well as the rationale of the procedures with her in great detail. We discussed and reviewed the possible benefits vs risks/potential complications. The estimated healing/recovery time and protocol were reviewed with her in detail. Reviewed the goals and the expectations. She expressed understanding and agreement and elected to proceed forward with surgical intervention as noted above. Tobacco cessation advised, reviewed rationale of this with her. The consent forms were reviewed with her and she freely signed them. All of her questions were answered. No guarantees were given nor implied. She was cleared from medical standpoint to proceed with surgery. Operative Procedure: The patient was brought back into the operating room and was placed on the operating table in the supine position. Patient was carefully secured to the operating room table with a safety belt around her waist. A time out was performed and the patient was properly identified and the surgical plan was confirmed. The patient received IV antibiotic prophylaxis - 2g of Ancef. The patient received spinal anesthesia per the anesthesiologist. A well padded pneumatic tourniquet was applied around her right ankle, but was not inflated for this procedure. A total of 10mL of 0.5% Bupivacaine plain and 4mL of 1% Lidocaine with 1:100,000 epi was given as a local block around the 1st ray hardware site on the right foot after the overlying skin was cleansed with 70% Isopropyl alcohol. The right foot was scrubbed, prepped, and draped in the usual aseptic fashion. Attention was directed to the right foot, there was noted to be prominent hardware at the level of the 1st metatarsal cuneiform joint fusion site. A linear longitudinal skin incision was medially along the medial 1st metatarsal cuneiform joint fusion site - directly over the previous incision. This was done using a 15 blade. Careful dissection was completed down to the hardware. The screws and the plate were removed in toto without complication. This was checked and confirmed with intraoperative fluoroscopy. The arthrodesis site was rigid and very stable, it was fused. Tissues were healthy and viable at this time. The subcutaneous tissue layers were reapproximated using? 3-0 Vicryl and the skin was reapproximated using 4-0 Monocryl. Cavailon was painted to the edges of the sutured skin incision and steristrips were applied across the sutured skin incision. 6 mL of 1% Lidocaine with 1:100,000 epi was given as a lock block around the surgical site for further pain control. There was noted to be normal warmth and perfusion to the foot and to all toes on the foot with normal temperature gradient and CFT < 2 seconds to all toes. A dressing was applied which consisted of betadine soaked adaptic, 4x4 gauze, kerlix, and an eliazar bandage. Of note, hemostasis was achieved throughout the case. Of note, all vital structures including all vital neurovascular and tendon structures were properly identified, protected, and retracted as necessary throughout the above operative procedures. The anterior tibial tendon was left intact. The patient tolerated the above operative procedures well at the anesthesia well with no complication. The patient was transported from the operating room to the recovery room with vital signs stable and in good condition. Post operative orders were placed. Post operative instructions were reviewed with her and her who was with her. No weightbearing right foot foot, keep right foot elevated for at least 50 minutes of every hour, keep dressing and splint clean, dry and intact. Ibuprofen 600mg PO q 8 hours prn pain was prescribed. Post operative xrays were obtained in the recovery room (DP, Oblique, and lateral foot) - s/p hardware removal without complication. Grafts/Implants Used: None Complications None
== END 2022-02-06 09:52 | disposition home or self-care (01) ==
LOC: SDC 05:47 → AC 05:48
PROVIDERS: Anesthesiology; PCP Family Medicine; Referring Provider Podiatrist; Visit Provider Podiatrist
PROC: (CPT 20680; principal; 2022-02-06 07:15)
DX: T84.84XA Pain due to internal orthopedic prosthetic devices, implants and grafts, initial encounter (principal); Y83.1 Surgical operation with implant of artificial internal device as the cause of abnormal reaction of the patient, or of later complication, without mention of misadventure at the time of the procedure; I48.91 Unspecified atrial fibrillation; J44.9 Chronic obstructive pulmonary disease, unspecified; F17.200 Nicotine dependence, unspecified, uncomplicated
CPT/HCPCS: 20680; 01480; 73620; 73630; 76000; 84132; J7120; J2405

== ENCOUNTER 2022-09-01 05:51 | Day surgery (SDC) | payer OTHER, SELFPAY ==
[2022-09-01] VITALS (7 sets, daily range): BP systolic 83–102; BP diastolic 62–72; PULSE 62–68; RESP 18–98; TEMP 36.2–36.6; O2SAT 16–99; BMI 27.6
--- NOTE | 2022-09-01 | GASB_PTH ---
PATIENT: CHANCE MCFARLAND LOC: EN U#:[id number] AGE/SX: 57/F ROOM: RE09/01/[address]: Dr. Joon Swan MD : 1965 BED: DIS: 09/01/2022 SPEC #: [id number] RECD: 09/01/22 11:19 STATUS: DARIUSZ HARPER #: [id number] LILIAN: 09/01/22 00:[address]: Joon Swan DEPT: SURGICAL PATHOLOGY RECD BY: Ellis Marshall ENTERED: 09/01/22 11:19 SP TYPE: Gastric Bx OTHR DR: Dr. Ezequiel Najera MD Tissues: A - Esophagus, NOS B - Duodenum, NOS C - Gastric mucous membrane D - Esophageal mucous membrane E - Esophageal mucous membrane Procedures: Special Stain Group II Surgery Specimen Level IV Alcian Blue/PAS (control) HEADER OPERATION: EGD ([facility]), biopsy PRE-OP DIAGNOSIS: GERD, intestinal metaplasia TISSUE SUBMITTED: A ? Proximal esophagus polyp biopsy, B ? Duodenum biopsy, C ? Antrum biopsy for histo and H. pylori, D ? Distal esophagus biopsy, E ? Mid esophagus biopsy MICROSCOPIC DIAGNOSIS A. Proximal esophagus polyp, biopsy: Squamous papilloma. B. Duodenum, biopsy: A fragment of duodenal mucosa with Letty gland hyperplasia. C. Antrum, biopsy: Mild gastritis. See microscopic description and comment. D. Distal esophagus, biopsy: Fragments of gastroesophageal mucosa with changes consistent with gastroesophageal reflux disease. Chronic inflammation. Intestinal metaplasia (goblet cell metaplasia) not identified. See comment. E. Mid esophagus, biopsy: Fragments of gastroesophageal mucosa with chronic inflammation. Intestinal metaplasia (goblet cell metaplasia) not identified. See comment. SJ:neyda 09/02/2022 COMMENT C. The results of immunohistochemistry for Helicobacter pylori will be reported separately ([id number]). D. Alcian blue/PAS stain with matched control is used in the evaluation of the specimen. The specimen predominantly consists of squamous mucosa. E. Alcian blue/PAS stain with matched control is used in the evaluation of the specimen. The specimen predominantly consists of squamous mucosa. MICROSCOPIC DESCRIPTION Slides are reviewed. C. The specimen shows fragments of gastric mucosa with chronic inflammatory cell infiltrates in the lamina propria consisting of lymphocytes and plasma cells, consistent with mild chronic gastritis. GROSS DESCRIPTION A - Received in fixative is one container labeled with the patient's name and designated proximal esophagus biopsy. The specimen consists of one irregular fragment of light wong soft tissue that measures 0.3 x 0.3 x 0.1 cm. The specimen is totally submitted in one cassette. B - Received in fixative is one container labeled with the patient's name and designated duodenum biopsy. The specimen consists of one irregular fragment of light wong soft tissue that measures 0.5 x 0.4 x 0.1 cm. The specimen is totally submitted in one cassette. C - Received in fixative is one container labeled with the patient's name and designated antrum biopsy. The specimen consists of two irregular fragments of light wong soft tissue that in aggregate measure 0.5 x 0.3 x 0.1 cm. The specimen is totally submitted in one cassette. D - Received in fixative is one container labeled with the patient's name and designated distal esophagus. The specimen consists of multiple irregular fragments of light wong soft tissue that in aggregate measure 1 x 0.5 x 0.1 cm. The specimen is totally submitted in one cassette. E - Received in fixative is one container labeled with the patient's name and designated mid esophagus. The specimen consists of multiple irregular fragments of light wong soft tissue that in aggregate measure 0.5 x 0.3 x 0.1 cm. The specimen is totally submitted in one cassette. / SJ:rg 09/01/2022 TC:3 [facility]: [id number] x5, [id number] x2
[2022-09-01] MEDS: Lactated Ringers 1,000 ML 15 ML IV (06:18)
--- NOTE | 2022-09-01 06:22 | PCM.HP.BLA ---
History and Physical Date of Admission: 09/01/22 Visit Reasons:?Hiatal Hernia Chief Complaint: Hiatal Hernia [employer] Territory Manager Required: No Is patient in pain?: No Allergies codeine Allergy (Verified 05/29/22 07:47) AngioedemaInfluenza Virus Vaccines Allergy (Verified 05/29/22 07:47) Hives Medications pantoprazole 20 mg tablet,delayed release 20 mg PO BID 05/29/22 [History Confirmed 05/29/22] PFSH Medical History? Alcohol use Arthritis Atrial flutter Bone fracture Breast lump in female Cardiology follow-up encounter Chronic bronchitis Easy bruising Headache Heartburn History of blood transfusion History of edema History of pain when walking History of stress test IBS (irritable bowel syndrome) Lichen planus-like dermatitis Migraine headache Nicotine dependence Osteopenia Seasonal allergies Smoker Vision problems Surgical History? bilateral foot surgery H/O breast augmentation H/O section History of dilation and curettage History of radiofrequency ablation procedure for cardiac arrhythmia (~2000) History of removal of ovarian cyst History of tonsillectomy History of total abdominal hysterectomy Family History?(Updated 05/29/22 @ 07:38 by Kym Wednesday) Aunt Breast cancer Cancer ?? ? esophageal DiabetesFather Alcoholism /alcohol abuse Heart diseaseMother Breast cancerGrandmother Breast cancer Cervical cancer Heart diseaseUncle Heart diseaseDaughter Thyroid disorder Autoimmune disease Social History?(Updated 05/29/22 @ 07:46 by Kym Wednesday) Smoking Status:? Current every day smoker tobacco type: cigarettes second hand exposure:? Yes alcohol intake:? current details:? occasional substance use type:? does not use what type of physical activity do you participate in:? other frequency:? daily seatbelt use:? always additional social history:? USES IBUPROFEN HPI HPI HPI: 56-year-old female who is referred by Dr. Nkechi Lima/Dr. Ezequiel Najera for surgical consultation regarding suspected gastroesophageal reflux disease.? A written copy of my surgical consult recommendations will be returned to her.? Reviewing some of the patient's chronic medical problems it appears that she does have depression and anxiety.? She has had a personal history of colonoscopy February 2018.? A sample that was felt to be possibly a polyp demonstrated no pathologic diagnosis.? History of atrial fibrillation treated with ablation.? She has tobacco dependency and COPD with hyperinflation and chronic cough.? June 2021 she did have COVID-19. She is currently on pantoprazole therapy 20 mg daily. Charting reveals a February 15, 2018 Dr. Hayward performed an upper endoscopy demonstrating H. pylori negative mild gastritis with focal intestinal metaplasia.? At that time there appeared to be a healing prepyloric ulcer.? A hiatal hernia was not identified on that endoscopy. The patient is noting burning in the epigastric area and throat that is progressively getting worse.? Chronic nausea.? Tums apparently provides no benefit.? She recants that 20 years ago she had an upper GI study demonstrating a hiatal hernia. The patient notes a lot of stress in her life recently.? She complains that she has migraine headaches at work very frequently.? Over the past 6 weeks she has had increased problems with belching and reflux all the way up to her throat.? But she also complains that when she bends over or lifts her leg up to do shaving that she literally can feel something right at the xiphoid epigastric area that she has to push back in to feel better.? She has never had any incisions up there.? Gallbladder is intact.? She is only had a hysterectomy.? She was told when she had her hysterectomy many years ago that she had I had a hernia at that time and offered to repair it was recommended she did not pursue that.? Currently she is having trouble not only with particular foods but but all foods currently.? She was placed on pantoprazole just recently at 20 mg twice daily but does not feel that that has made much of a difference ROS General General: Yes weight change and fatigue; No appetite, colon cancer, breast cancer or weakness HEENT HEENT: No difficulty swallowing, eye injury, eye surgery, swollen glands or hoarseness Endo Endocrine: No thyroid disease, diabetes mellitus, thyroid cancer, Hair loss, heat intolerance or cold intolerance Skin Skin: No rash or changing moles Musc Musculoskeletal: Yes arthritis; No back problems, rheumatoid arthritis, gout or joint pain Cardio Cardiovascular: No murmur, pacemaker, heart disease, atrial fibrillation, high blood pressure, heart attack, heart stent, palpitations, shortness of breat with exertion or chest pain Psych Psychiatric: No depression, anxiety or hearing voices Resp Respiratory: No shortness of breath, No sleep apnea, No cough, No COPD, No asthma, No emphysema and No wheezing Gastro Gastrointestinal: No abdominal pain, Yes nausea or vomiting, No diarrhea, No constipation, No blood in stool, Yes acid reflux, No hemorrhoids, No ulcers, No gallbladder problem and No black,tarry stools Hakeem Hematologic: No blood thinners, No blood disorders, No bleeding, No anemia and No blood clots Neuro Neurologic: No system reviewed and no additional complaints, except as documented, No as per HPI, No abnormal gait, No abnormal hearing, No abnormal movements, No abnormal speech, No behavioral changes, No burning sensations, No confusion, No convulsions, No disequilibrium, No dizziness, No localized weakness, No frequent falls, No headache(s), No lack of coordination, No loss of vision, No memory loss, No numbness, No other visual disturbances, No radicular pain, No restless legs, No sensory deficit, No syncope, No tingling, No tremor(s), No weakness and No other Exam Const General: cooperative, comfortable and no acute distress Nutritional Appearance: average body habitus Orientation: alert and awake Other: Heavy odor of tobacco, patient was examined with nursing staff present. [facility] Head: normal to inspection Eyes General: appearance normal, both eyes and all related structures Neck Neck: normal visual inspection Chest Other: Increased AP diameter Resp Effort & Inspection: normal respiratory effort Auscultation: clear to auscultation bilaterally Cardio Rate: regular rate Rhythm: regular rhythm GI Other: Soft, nontender, bowel sounds present unremarkable, the patient was examined upright and supine with no fascial defect identified Musc Cervical Spine: normal cervical lordosis Skin General: no rashes or lesions noted Neuro General: patient alert, patient awake and patient oriented x3 Psych Appearance: grossly normal Assessment and Plan Assessment and Plan (1) GERD (gastroesophageal reflux disease): ?Status:?Acute ?Qualifiers: ?Esophagitis presence:?without esophagitis? Qualified Code(s):?K21.9 - Gastro-esophageal reflux disease without esophagitis (2) Intestinal metaplasia of antrum of stomach without dysplasia: ?Status:?Acute Plan Regarding the patient's symptoms of been able to press on her epigastrium and feels like something is being reduced cannot be repeated on my clinical examination currently.? She has no incisions in the epigastrium.? She could have a defect of the linea alba but I am not detecting that clinically.? If these type of symptoms persist then I have suggested the patient that I would recommend an abdominal CT scan. Based upon the patient's reflux symptoms and belching and reported previous history of hiatal hernia although not documented on her most recent exam but with her most recent exam demonstrating intestinal metaplasia I do recommend that we repeat a esophagogastroduodenoscopy.? She is aware of technique, benefit, risk, alternatives.? We will schedule and proceed at her discretion. We have additionally discussed patient behavior patterns that could assist with her reflux.? I discussed head of bed elevation and avoiding foods within 2 hours of rest and avoiding reflux prone fluids including alcohol.? I additionally discussed the deleterious effects of cigarette smoking on her reflux disease and gastritis and COPD.? Unfortunate this likely would also affect our ability to obtain a solid repair if we were to want to consider a future surgical reflux procedure.? It would certainly be very much in her interest if she were to cease her tobacco use.? This likely would be requirement to consider reflux surgery She has had an opportunity to ask and have questions answered.? I appreciate the opportunity of assisting with her surgical care.? We will schedule procedure at her discretion.? She will remain on the pantoprazole.? If need be she might be a future candidate that add Carafate. Copy: Dr. Nkechi Lima and Dr. Ezequiel Swan M.D., F.A.C.S I have examined the patient and the H&P has been reviewed. There are no clinical changes since date of exam. Joon Swan M.D., F.A.C.S.
--- NOTE | 2022-09-01 07:00 | IMM_PTH ---
PATIENT: CHANCE MCFARLAND LOC: EN U#:[id number] AGE/SX: 57/F ROOM: RE09/01/[address]: Dr. Joon Swan MD : 1965 BED: DIS: 09/01/2022 SPEC #: [id number] RECD: 09/01/22 14:40 STATUS: DARIUSZ REMaximo #: [id number] LILIAN: 09/01/22 07:[address]: Joon Swan DEPT: IMMUNOHISTOCHEMISTRY RECD BY: Brittany Stuart ENTERED: 09/01/22 14:41 SP TYPE: IMMUNO OTHR DR: Dr. Ezequiel Najera MD Tissues: C - Stomach, NOS Procedures: H Pylori (initial) PHYSICIAN & INSTITUTION [place] [id number] SPECIMEN INFORMATION: Tissue Source: C ? Antrum biopsy Clinical Info: GERD, intestinal metaplasia Specimen Number: [id number] CPT code: 08231 METHODOLOGY: Deparaffinized sections of prefer/formalin-fixed tissue or PAP/DQ stained slides are incubated with monoclonal/polyclonal antibodies/oligonucleotide probes. Localization is made via biotin free immunoperoxidase method. Appropriate controls are performed and reacted as expected. Results on target cell population are indicated in the following table: RESULTS: ANTIBODY / CLONE RESULT Block C H Pylori (polyclonal) negative These tests were developed and their performance characteristics determined by [facility]. They may not have been cleared or approved by the U.S. Food and Drug Administration. The FDA has determined that such clearance or approval is not necessary. The above immunohistochemical/dualISH markers are ordered and reviewed by the Pathologist. INTERPRETATION: C. Antrum, biopsy: Negative for Helicobacter pylori organisms. SJ:neyda 09/02/2022
--- NOTE | 2022-09-01 07:26 | OP.CCLET_ITS ---
09/01/2022 Ezequiel Najera Re : Upper GI endoscopy procedure for Erica Bolivar Dear [place] This procedure was performed on Thursday, September 01, 2022. My impressions and recommendations are as follows: Impressions : - Esophageal polyp(s) were found. Resected and retrieved. - Normal mid esophagus. Biopsied. - Reflux esophagitis. Biopsied. Minimal hiatal hernia - Erythematous mucosa in the stomach. Biopsied. - Normal examined duodenum. Biopsied. Recommendations : - Discharge patient to home. - Resume previous diet. - Continue present medications. - Telephone my office for pathology results in 1 week. My findings are described in the full procedure note, which is enclosed. If I can be of further assistance, please feel free to contact me at Doctor phone number(s): Work: . Sincerely, Joon Swan MD 09/01/2022 7:26:24 AM This report has been signed electronically.
--- NOTE | 2022-09-01 07:26 | OP.EGD_ITS ---
Patient Name: Erica Bolivar Procedure Date: 09/01/2022 7:03 AM Date of : 1965 Age: 57 Procedure: Upper GI endoscopy Indications: Epigastric abdominal pain Providers: Joon Swan MD Medicines: See the Anesthesia note for documentation of the administered medications Complications: No immediate complications. Procedure: Pre-Anesthesia Assessment: - Prior to the procedure, a History and Physical was performed, and patient medications and allergies were reviewed. The patient's tolerance of previous anesthesia was also reviewed. The risks and benefits of the procedure and the sedation options and risks were discussed with the patient. All questions were answered, and informed consent was obtained. Prior Anticoagulants: The patient has taken no previous anticoagulant or antiplatelet agents. ASA Grade Assessment: II - A patient with mild systemic disease. After reviewing the risks and benefits, the patient was deemed in satisfactory condition to undergo the procedure. After obtaining informed consent, the endoscope was passed under direct vision. Throughout the procedure, the patient's blood pressure, pulse, and oxygen saturations were monitored continuously. The Endoscope was introduced through the mouth, and advanced to the second part of duodenum. The upper GI endoscopy was accomplished without difficulty. The patient tolerated the procedure well. Scope In: 7:11:35 AM Scope Out: 7:20:50 AM Total Procedure Duration Time 0 hours 9 minutes 15 seconds Findings: A single 4 mm polyp with no bleeding was found 15 cm from the incisors. The polyp was removed with a cold biopsy forceps. Resection and retrieval were complete. The mid esophagus was normal. Biopsies were taken with a cold forceps for histology. Esophagitis with no bleeding was found 38 cm from the incisors. Biopsies were taken with a cold forceps for histology. Diffuse mildly erythematous mucosa without bleeding was found in the entire examined stomach. Biopsies were taken with a cold forceps for histology. The examined duodenum was normal. Biopsies were taken with a cold forceps for histology. Impression: - Esophageal polyp(s) were found. Resected and retrieved. - Normal mid esophagus. Biopsied. - Reflux esophagitis. Biopsied. Minimal hiatal hernia - Erythematous mucosa in the stomach. Biopsied. - Normal examined duodenum. Biopsied. Recommendation: - Discharge patient to home. - Resume previous diet. - Continue present medications. - Telephone my office for pathology results in 1 week. Procedure Code(s): --- Professional --- 21132, Esophagogastroduodenoscopy, flexible, transoral; with biopsy, single or multiple Diagnosis Code(s): --- Professional --- K22.8, Other specified diseases of esophagus K21.0, Gastro-esophageal reflux disease with esophagitis K31.89, Other diseases of stomach and duodenum R10.13, Epigastric pain CPT copyright 2017 [employer]. All rights reserved. The codes documented in this report are preliminary and upon branch operations coordinator review may be revised to meet current compliance requirements. Joon Swan MD 09/01/2022 7:26:24 AM This report has been signed electronically. Number of Addenda: 0 Note Initiated On: 09/01/2022 7:03 AM
== END 2022-09-01 08:00 | disposition home or self-care (01) ==
LOC: EN 05:52 → AC 05:53
PROVIDERS: PCP Family Medicine; Referring Provider Family Medicine; Visit Provider Surgery
PROC: 0DJ08ZZ Inspection of Upper Intestinal Tract, Via Natural or Artificial Opening Endoscopic (ICD-10-PCS; CPT 43235; principal; 2022-09-01 06:55)
DX: D13.0 Benign neoplasm of esophagus (principal); J44.9 Chronic obstructive pulmonary disease, unspecified; K21.00 Gastro-esophageal reflux disease with esophagitis, without bleeding; K44.9 Diaphragmatic hernia without obstruction or gangrene; K31.89 Other diseases of stomach and duodenum; G43.909 Migraine, unspecified, not intractable, without status migrainosus; F32.A Depression, unspecified; F41.9 Anxiety disorder, unspecified; F17.210 Nicotine dependence, cigarettes, uncomplicated; Z79.899 Other long term (current) drug therapy
CPT/HCPCS: 43239; 88305; 88313; 88342; J7120; J2405

== ENCOUNTER → 2023-11-09 | Outpatient (CLI) | payer OTHER, SELFPAY ==
[2023-11-09 12:41] LABS: Absolute Lymphocyte Count 2.09 X10^3/uL (0.83-4.51); Absolute Neutrophil Count 5.9 X10^3/uL (2.0-7.7); Basophil# 0.06 X10^3/uL; Basophil% 0.7 % (0-1); Eosinophil# 0.19 X10^3/uL; Eosinophils% 2.1 % (0-5); Hematocrit 44.1 % (37-47); Hemoglobin 14.3 g/dL (12.0-15.0); Lymphocyte # 2.09 X10^3/ul (0.83-4.51); Mean Corp Hgb Conc 32.4 g/dL (32-36); Mean Corpuscular Hgb 30.8 pg (27.0-32.0); Mean Platelet Vol. 11.5 fl (6.2-12.0); Monocyte# 0.75 X10^3/uL; Monocyte% 8.3 % (0-10); NRBC Flagged by Analyzer 0 % (0-5); Neutrophil # 5.87 X10^3/uL (2.7-7.7); Neutrophil % 64.6 % (47-70); Platelet Count 227 K/mm3 (150-450); RBC Distribution Width CV 12.9 % (11.6-14.6); Red Blood Count 4.64 M/mm3 (4.2-5.4); White Blood Count 9.1 K/mm3 (4.4-11.0)
[2023-11-09 12:47] LABS: ALB/GLOB Ratio 1.2 RATIO (0.9-2.4); AST(SGOT) 21 U/L (15-37); Alanine Aminotransfer ALT/SGPT 25 U/L (13-56); Albumin, Serum 3.7 g/dL (3.2-5.0); Alkaline Phosphatase 79 U/L (45-117); Anion Gap 4 (5-15); BUN 14 mg/dL (7-18); BUN/Creat Ratio 15.1 RATIO (10-20); Calcium,Total 9.4 mg/dL (8.5-10.1); Chloride 109 mmol/L (98-107); Cholesterol 196 mg/dL (200); Creatinine, Serum 0.93 mg/dL (0.55-1.02); EST Glomerular Filtration Rate 66 mL/min (>60); Est Glom Filt Rate - Afr Amer 80 mL/min (>60); Globulin 3.2 g/dL (2.2-4.2); Glucose 91 mg/dL (74-106); High Density Lipoprotein 54 mg/dL; Potassium 5.4 mmol/L (3.5-5.1); Protein, Total 6.9 g/dL (6.4-8.2); Sodium Level 140 mmol/L (136-145); Triglycerides 122 mg/dL; Very Low Density Lipoprotein 24 mg/dL (5-40)
== END | disposition home or self-care (01) ==
PROVIDERS: PCP Nurse Practitioner Family; Visit Provider Nurse Practitioner Family
DX: Z00.01 Encounter for general adult medical examination with abnormal findings (principal); J44.9 Chronic obstructive pulmonary disease, unspecified
CPT/HCPCS: 36415; 80053; 80061; 85025

== ENCOUNTER 2024-06-10 10:59 | Emergency (ER) | payer OTHER, SELFPAY ==
[2024-06-10 11:00] VITALS: BP 134/111; PULSE 80; RESP 15; TEMP 36.4; O2SAT 100; BMI 25.8
--- NOTE | 2024-06-10 11:11 | EDS_ITS ---
HPI History of Present Illness Chief Complaint: Abd Pain PFSH [facility] Medical History Alcohol use Lichen planus-like dermatitis Arthritis Easy bruising Migraine headache Heartburn Smoker History of pain when walking History of edema Cardiology follow-up encounter History of stress test Vision problems Osteopenia IBS (irritable bowel syndrome) Headache Chronic bronchitis Breast lump in female History of blood transfusion Bone fracture Seasonal allergies Nicotine dependence Atrial flutter Home Medications ?Medication ?Instructions ?Recorded ?Last Taken ?Type pantoprazole 20 mg tablet,delayed 20 mg PO BID 05/29/22 Unknown History release Allergy/AdvReac Type Severity Reaction Status Date / Time codeine Allergy Angioedema Verified 06/10/24 11:00 Influenza Virus Vaccines Allergy Hives Verified 06/10/24 11:00 Family History (Updated 05/29/22 @ 07:38 by Kym Wednesday) Aunt Breast cancer Cancer esophageal Diabetes Father Alcoholism /alcohol abuse Heart disease Mother Breast cancer Grandmother Breast cancer Cervical cancer Heart disease Uncle Heart disease Daughter Thyroid disorder Autoimmune disease Surgical History Hx of foot surgery History of dilation and curettage H/O section History of removal of ovarian cyst H/O breast augmentation bilateral foot surgery History of tonsillectomy History of total abdominal hysterectomy History of radiofrequency ablation procedure for cardiac arrhythmia (~2000) Social History (Updated 05/29/22 @ 07:46 by Kym Wednesday) Smoking Status: Current every day smoker tobacco type: cigarettes second hand exposure: Yes alcohol intake: current details: occasional substance use type: does not use what type of physical activity do you participate in: other frequency: daily seatbelt use: always additional social history: USES IBUPROFEN EXAM Physical Exam Const Vital Signs: 06/10/24 11:00 06/10/24 13:08 Temperature 97.6 F L Temperature Source Temporal Pulse Rate 80 89 Respiratory Rate 15 16 Blood Pressure 134/111 H 126/61 H Blood Pressure Mean 118 82 Pulse Ox 100 98 Oxygen Delivery Method Room Air Room Air MDM MDM MDM Narrative Medical decision making narrative: HISTORY OF PRESENT ILLNESS: 58-year-old female presents with left sided abdominal pain. No she bent over to to pet her dog she noted a pop, tearing pain in the left upper quadrant of her abdomen. Notes this occurred 6 days ago. Denies vomiting, fever, trouble urinating, hematuria, melena, medic easier, constipation. Notes history of hysterectomy otherwise no abdominal surgeries. REVIEW OF SYSTEMS: Pertinent positives: Left upper quadrant abdominal pain Pertinent negatives: As per HPI PHYSICAL EXAM: Nursing triage notes reviewed, Vital signs reviewed Constitutional: please see mdm HENT: MMM Eyes: Pupils equal round and reactive to light, Extraocular muscles intact Neck: No stridor, no JVD, full neck ROM Lungs: Clear to auscultation, No wheezing or rales. No increased work of breathing, no conversational dyspnea, no accessory muscle use, no nasal flaring. No respiratory distress noted. No rib TTP Heart: Regular rate and rhythm, No murmurs, No rubs and No gallops, 2+ distal pulses (radial, femoral, posterior tibial) in all extremities Abdomen: Soft, slight TTP left upper quadrant, rigidity, rebound or guarding, no obvious peritoneal signs, no palpable pulsatile abdominal masses, no auscultated abdominal bruit : No CVAT Extremities: No edema Neuro: No focal neurological deficits, cranial nerves II through XII intact, 5/5 strength in all extremities. Intact sensation to light touch in all extremities, 2+ reflexes bilateral patella tendons. Normal gait. No ataxia. Skin: No rash or lesions noted MEDICAL DECISION MAKING: Chief Complaint: Left upper quadrant pain External records reviewed: Reviewed allergies, problem list, vital signs, current medications Factors affecting care: none [facility] Narrative: The patient was hemodynamically stable, afebrile and nontoxic-appearing. Abdominal exam with slight TTP over left upper quadrant. No signs of trauma, no bruising, no Eduin sign, no Raymond Krishnamurthy sign. I considered the following differential diagnosis: Solid organ injury, musculoskeletal injury Obtained a Noncon CT to rule out solid organ injury. ALL IMAGES (IF OBTAINED) HAVE BEEN PERSONALLY REVIEWED AND INTERPRETED BY MYSELF. CT scan abdomen pelvis shows no evidence of splenic injury, solid organ injury Urinalysis not evidence of hematuria suggest renal injury The synthesis of the patient's history, physical exam, labs images suggest likely musculoskeletal etiology. Recommend Tylenol ibuprofen stretching and strengthening as tolerated. Patient appropriate discharge home. The patient and/or family, caregivers express understanding. The patient and/or family, caregivers agrees with the plan. Shared decision making: I will have a discussion with the patient and or visitors regarding risk/benefits of further testing or admission. They will be made aware of of the risk/benefits inherent in this decision they will be given the opportunity to voice understanding. Total critical care time today provided was at least 0 minutes. This excludes separately billable procedures. Critical care time (if documented) is secondary to the patient having high probability of clinically significant/life threatening deterioration in the patient's condition which required my urgent intervention. Impression: 1. Abdominal muscle strain 2. Left upper quadrant abdominal pain Dispo: Discharge home This note was generated with [employer] dictation software. It may contain incorrect words, spelling, and punctuation that were not noted in review of the chart prior to signing. Lab Data Labs: Laboratory Results - last 24 hr 06/10/24 12:15 Urine Color Yellow Urine Clarity Clear Urine pH 5.0 Ur Specific [place] 1.030 Urine Protein Negative Urine Glucose (UA) Normal Urine Ketones Negative Urine Occult Blood Negative Urine Nitrite Negative Urine Bilirubin Negative Urine Urobilinogen Normal Ur Leukocyte Esterase 25 H Urine RBC 0 SEEN Urine WBC 0 SEEN Ur Squamous Epith Cells 0-5 SEEN Urine Bacteria 0 SEEN Urine Mucus 0 SEEN Radiography Diagnostic Testing: Clinical Impression(s) from Imaging Studies Abdomen/Pelvis CT 06/10/24 11:51 IMPRESSION: Mild gastroenteritis/diarrheal illness with mild fluid in the colon. Appendectomy. Electronically Signed: Henrietta Garcia MD at 12:25 EDT Reading Location ID and State: [facility] / [place] Tel , Service support , Discharge Plan Triage Chief Complaint: Abd Pain ED Provider: Yang Mishra Dx/Rx/DC Orders Instructions: ED Muscle Strain, Abdomen Prescriptions: No Action pantoprazole 20 mg tablet,delayed release (DR/EC) 20 mg PO BID Primary Care Provider: Emily Kang Referrals: Emily Kang, BRANDYN-C [Primary Care Provider] - Activity Restrictions/Additional Instructions: Thank you for trusting us with your care today! Your urine and CT scan were negative for signs of significant trauma to the organs located in your left upper quadrant. Suspect you are suffering from muscle strain. This should improve and/or resolve on its own in the next several days. Please take Tylenol (2 pills, 650 mg), ibuprofen (2 pills, 400 mg) every 6 hours as needed for pain and fever control. Please return to the emergency department if your symptoms change or worsen. Please follow with your primary care physician for further outpatient evaluation and management. Print Language: Marshallese Disposition Disposition: Home, Self Care Discharge Date/Time: 06/10/24 14:17
--- NOTE | 2024-06-10 11:51 | CT_ITS ---
HISTORY: left upper quadrant pain after bending to pet dog 6 days ago. TECHNIQUE: Helically acquired images were obtained of the abdomen and pelvis without oral or IV contrast. A radiation dose optimization technique was used for this scan. 471 images. COMPARISON: None. FINDINGS: LOWER CHEST: Lung bases clear. Breast implants present. BOWEL: Bowel nondilated. Appendectomy. Mild fluid in the colon. No focal pericolonic inflammatory change. Fatty infiltration of the colonic wall, likely sequela of prior colitis. PERITONEUM: No significant free fluid. LIVER: Unremarkable. GALLBLADDER/BILIARY TREE: Gallbladder present. SPLEEN/PANCREAS/ADRENAL GLANDS: Nonenlarged. KIDNEYS AND URETERS: No nephrolithiasis or obstructing ureteral calculus. VESSELS: No abdominal aortic aneurysm. PELVIC ORGANS: Absent uterus. ABDOMINAL WALL: No fluid collection. BONES: Intact. Mild degenerative change. CT/Abdomen/Pelvis without Cont IMPRESSION: Mild gastroenteritis/diarrheal illness with mild fluid in the colon. Appendectomy. Electronically Signed: Henrietta Garcia MD at 12:25 EDT ,
[2024-06-10] MEDS: Acetaminophen 325 MG Tablet 650 MG PO (12:02)
[2024-06-10] MEDS: Ibuprofen 200 MG Tablet 400 MG PO (12:02)
[2024-06-10 12:31] LABS: Bacteria 0 SEEN /hpf (None Seen); Mucous, Urine 0 SEEN /hpf (<or=2+); Red Blood Cells-Urine 0 SEEN /hpf (0-5); White Blood Cells 0 SEEN /hpf (0-5)
[2024-06-10 12:33] LABS: Color, Urine Yellow (Yellow); Glucose, Dipstick Normal (Normal); Ketone-Dipstick Negative (Negative); Leukocyte Esterase-Dipstick 25 /ul (Negative); Nitrite-Dipstick Negative (Negative); Occult Blood-Urine Negative /ul (Negative); Protein-Dipstick Negative (Negative); Urine Bilirubin Dipstick Negative (Negative); Urine Clarity Clear (Clear); Urine Urobilinogen Normal (Normal)
[2024-06-10 12:50] LABS: Squamous Epithelial Cells - UA 0-5 SEEN /hpf (5-10)
[2024-06-10 13:08] VITALS: BP 126/61; PULSE 89; RESP 16; O2SAT 98
== END 2024-06-10 14:17 | disposition home or self-care (01) ==
PROVIDERS: Emergency Provider Emergency Medicine; PCP Nurse Practitioner Family; Visit Provider Emergency Medicine
DX: S39.011A Strain of muscle, fascia and tendon of abdomen, initial encounter (principal); X58.XXXA Exposure to other specified factors, initial encounter; F17.210 Nicotine dependence, cigarettes, uncomplicated
CPT/HCPCS: 74176; 81001; 99282

== ENCOUNTER → 2025-03-16 | Outpatient (CLI) | payer BC, SELFPAY ==
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
[2025-03-16 17:48] LABS: Hematocrit 42.9 % (37-47); Hemoglobin 14.3 g/dL (12.0-15.0); Immature Granulocytes Count 0.040 X10^3/uL (0.0-0.0); Mean Corp Hgb Conc 33.3 g/dL (32-36); Mean Corpuscular Volume 93.1 fL (81-99); Mean Platelet Vol. 10.8 fl (6.2-12.0); NRBC Flagged by Analyzer 0 % (0-5); Platelet Count 235 K/mm3 (150-450); RBC Distribution Width CV 12.6 % (11.6-14.6); RBC Distribution Width SD 43.2 fl (35.1-43.9); Red Blood Count 4.61 M/mm3 (4.2-5.4); White Blood Count 9.9 K/mm3 (4.4-11.0)
[2025-03-16 18:20] LABS: AST(SGOT) 22 U/L (<=31); Alanine Aminotransfer ALT/SGPT 16 U/L (<=34); Albumin, Serum 4.4 g/dL (3.5-5.0); Alkaline Phosphatase 100 U/L (35-104); Anion Gap 12 (5-15); BUN 12 mg/dL (4-19); BUN/Creat Ratio 12.2 RATIO (10-20); Calcium,Total 9.6 mg/dL (7.6-11.0); Carbon Dioxide 24.6 mmol/L (21.0-32.0); Chloride 104 mmol/L (98-108); Cholesterol 202 mg/dL (<=200); Globulin 2.8 g/dL (2.2-4.2); Glucose 84 mg/dL (70-99); Low Density Lipoprotein Calc. 105 mg/dL; Potassium 4.4 mmol/L (3.3-5.1); Triglycerides 255 mg/dL; Very Low Density Lipoprotein 51 mg/dL (5-40); cholesterol:hdl ratio screen 4.43
== END | disposition home or self-care (01) ==
LOC: MTLAB 16:37
PROVIDERS: PCP Nurse Practitioner Family; Referring Provider Nurse Practitioner Family; Visit Provider Nurse Practitioner Family
DX: Z00.01 Encounter for general adult medical examination with abnormal findings (principal)
CPT/HCPCS: 36415; 80053; 80061; 85025

== ENCOUNTER → 2025-04-24 | Outpatient (CLI) | payer BC, SELFPAY | END | disposition home or self-care (01) | LOC: LAB 13:27 | PROVIDERS: PCP Nurse Practitioner Family; Referring Provider Internal Medicine Cardiovascular Disease; Visit Provider Internal Medicine Cardiovascular Disease | DX: I48.92 Unspecified atrial flutter (principal); R06.09 Other forms of dyspnea | CPT/HCPCS: 36415; 84443 ==

== ENCOUNTER → 2025-05-28 | Outpatient (CLI) | payer BC, SELFPAY ==
--- OUTSIDE RECORDS SUMMARY | 2025-05-28 05:51 | XMS RPT_ITS | CCD ---
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 [facility] Work Phone: Thin prep Papanicolaou smear with manual screening 7 5-15 [facility] Work Phone: XR ANKLE LEFT 3+ VIEWS (AMADO DARD)on 11-29-2020 XR ANKLE LEFT 3+ VIEWS (STANDARD) [...] 2020 4:24:23 PM EDT Normal [facility] Comment on above: Order Comment: WH Injury/Trauma or Illness?:Injury/Trauma How long have you had these symptoms (acute/chronic)?:Acute Reason for exam?:pain History of cancer?:u Surgeries, chemotherapy, or radiation?:u Type of Exam?:Initial Mechanism of injury?:rolled ankle CORONAVIRUS 2019 BY PCRon CORONAVIRUS 2019,PCR NOT DETECTED Normal Not Detected [facility] Comment on above: Result Comment: . [...] patient management decisions. Fact sheet for providers: https://www.fda.gov/media/586391/download Fact sheet for patients: https://www.fda.gov/media/981881/download This test has received FDA Emergency Use Authorization (EUA) and has been verified by [facility] ([facility]). This test is only authorized for the duration of time that circumstances exist to justify the authorization of the emergency use of in vitro diagnostic tests for the detection of SARS-CoV-2 virus and/or diagnosis of COVID-19 infection under section 564(b)(1) of the Act, 21 U.S.C. 360bbb-3(b)(1), unless the authorization is terminated or revoked sooner. [facility] is certified under CLIA-88 as qualified to perform high complexity testing. Testing is performed in the [facility] laboratories located at [address] [place] [address]. Performed By: #### C OV19 #### [place] [address] CORONAVIRUS 2019 BY PCRon DATE OF SYMPTOM ONSET [YYYYMMDD]? 20200623 [facility] Comment on above: Performed By: #### C OV19 #### [place] [address] EMPLOYED IN HEALTHCARE? No Normal [facility] Comment on above: Performed By: #### C OV19 #### [facility] [address] [place] [address] FIRST COVID NASAL SWAB TEST? No Normal [facility] Comment on above: Performed By: #### C OV19 #### [facility] [address] [place] [address] HOSPITALIZED (OR PLANNED TO BE ADMITTED)? No [facility] Comment on above: Performed By: #### C OV19 #### [facility] [address] [place] [address] ICU? No Normal [facility] Comment on above: Performed By: #### C OV19 #### [facility] [address] [place] [address] Lab Specimen Source Nasal, Nasopharyngeal [facility] Comment on above: Performed By: #### C OV19 #### [facility] [address] [place] [address] ? No [facility] Comment on above: Performed By: #### C OV19 #### [facility] [address] [place] [address] RESIDENT IN CONGREGATE CARE SETTING? No [facility] Comment on above: Performed By: #### C OV19 #### [facility] [address] [place] [address] SYMPTOMATIC DEFINED BY CDC? Yes [facility] Comment on above: Performed By: #### C OV19 #### [facility] [address] [place] [address] Provider Note - ED v2on 06-09 Provider Note - ED v2 Provider Note - ED v2: Chart Review: ED NOTES ED NOTES: HPI: Mrs. Mcfarland is a 55 y/o WF presenting with c/o slight cough, anosmia, ageusia, generalized malaise, and fatigue,. Pt requesting testing for COVID-19. Symptoms have been present for 2 to 3 days. Potential contact coworkers, pt works at [employer]. 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 : no Is : no REVIEW OF SYSTEMS CONSTITUTIONAL: POSITIVE for: malaise Negative for: chills and fever ENMT Nose: POSITIVE for: congestion and discharge Throat/Neck: POSITIVE for: throat pain RESPIRATORY: POSITIVE for: cough Negative for: dyspnea and pleuritic chest pain GASTROINTESTINAL: POSITIVE for: diarrhea; NEUROLOGICAL: POSITIVE for: headache; Negative for: dizziness; RESULTS/VITAL SIGNS VITAL SIGNS: T PRBP SpO2O2(LPM) %FiO2 Method 25-Jun-2020 12:15:[id number]/ 83 97RA MEDICAL DECISION MAKING/ED COURSE MDM/ED [...] Updated: 25-Jun-2020 18:50 by Luciano Azevedo (PAC) [facility] Risk Screen - Adult Emergenc yon 10-31-2019 Risk Screen - Adult Emergency Preferred Language: Preferred Language: Preferred Language for Discussing Health Care (patient/designee)Eng inocente Advanced Directives: Advance Directive/DNRno Family Violence Adult: Abuse Screen: Are you or have you been threatened or abused physically, emotionally, or sexually by anyoneno Learning Assessment (Patient): Learning Assessment (Patient): Patient is Able to be Assessed for Learningyes Factors Influencing Readiness to Learnpain Factors that Impact Ability to Learnnone Devices/Methods Used to Communicatenone Learning Preferencesverbal instruction Cultural Considerationsnone Developmental Considerationsnone Anglican Considerationsnone Learning Assessment (Other Learner): Learning Assessment (Other Learner): Other learner availableno Pressure Injury/TB/Substance: Pressure Injury: Do you have a coughyes... Has your cough lasted longer than 2 weeksno Substance Use Current or Former Historynever: e-Cigarette/Vaping, Alcohol, Street Drugs YES: Cigarette/Tobacco Smoking Statuscurrent every day smoker Admission Risk Screen: Significant IndicatorsComplete CAGE: CAGE: Is this an injured patient at a Trauma Center ([facility]/[place]/[facility]/[place]/[facility]): no Electronic Signatures: Emory Kaiser (ABRIL) (Signed 31-Oct-2019 12:44) Authored: Preferred Language, Advanced Directives, Family Violence Adult, Learning Assessment (Patient), Learning Assessment (Other Learner), Pressure Injury/TB/Substance, CAGE Last Updated: 31-Oct-2019 12:44 by Emory Kaiser (ABRIL) [facility] Triage - EDon 10-31-2019 Triage - ED [...] BMI (kg/m2): 24.621 Calculated BSA (m2) 1.63 Ludy Coma Scale: Best Eye Response: (E4) spontaneous Best Motor Response: (M6) obeys commands Best Verbal Response: (V5) oriented [place] Score: 15 Patient has homicidal thoughts: no [...] Medical History, Active Electronic Signatures: Emory Kaiser (ABRIL) (Signed 31-Oct-2019 12:43) Authored: Triage, Past Medical History Last Updated: 31-Oct-2019 12:43 by Emory Kaiser (ABRIL) [facility] CT HEAD OR BRAIN WITHOUT CON TRASTon 05-25-2019 No acute intracrania l process. Workstation ID: [id number] [facility] EXAMINATION: CT HEAD OR BRAIN WITHOUT CONTRAST [...] visualized paranasal sinuses appear clear. [facility] Interface, Rad In [employer] Speech[employer] - [...] intracranial process. Workstation ID: [id number] [facility] CT MAXILLOFACIAL WITHOUT CON TRASTon 05-25-2019 No evidence of fracture. Small right frontal supraorbital scalp hematoma. [employer] Workstation ID: [id number] [facility] EXAMINATION: CT MAXILLOFACIAL WITHOUT CONTRAST HISTORY: [...] hematoma. No fracture is seen. [facility] Interface, Rad In Vinnie Oviedoq - 05/25/2019 7:50 PM EDT EXAMINATION: CT [...] hematoma. EHR/dbg Workstation ID: [id number] [facility] Office Visiton 03-15-2017 Documentation of current medications (procedure) Done Invalid Interpretation Code [employer] Work Phone: [phone] Fall risk assessment No Invalid Interpretation Code [employer] Work Phone: [phone] Protein mass conc Done [employer] Work Phone: [phone] Clinical Lists Update: Clini monalisa Noteon 02-05-2017 Left ventricular Ejection fraction 65 % Invalid Interpretation Code [employer] Work Phone: Lab Report: Basic Metabolic Profile (BMP)on 02-04-2017 Anion gap 11 mmol/L Invalid Interpretation Code 5-15 [employer] Work Phone: [phone] Anion gap molar conc 11 mmol/L 5-15 [employer] Work Phone: [phone] Calcium mass conc 8.6 mg/dL Invalid Interpretation Code 8.5-10.1 [employer] Work Phone: [phone] Chloride molar conc 106 mmol/L Invalid Interpretation Code 98-107 [employer] Work Phone: [phone] CO2 25.0 mmol/L Invalid Interpretation Code 21.0-32.0 [employer] Work Phone: [phone] CO2 ppres (BldV) 25.0 mmol/L 21.0-32.0 [employer] Work Phone: [phone] Creatinine mass conc 1.06 mg/dL High 0.55-1.02 [employer] Work Phone: [phone] eGFR (non-black) 70 mL/min/{1.73_m2} Invalid Interpretation Code >60 [employer] Work Phone: [phone] EST GFR - AA 70 mL/min >60 [employer] Work Phone: [phone] GFR/1.73 sq M predicted among non-blacks MDRD vol rate/area (S/P/Bld) 58 mL/min/{1.73_m2} Low >60 [employer] Work Phone: [phone] Glucose 81 mg/dL Invalid Interpretation Code 70-110 [employer] Work Phone: [phone] Glucose mass conc 81 mg/dL 70-110 [employer] Work Phone: [phone] Potassium molar conc 3.5 mmol/L Invalid Interpretation Code 3.5-5.1 [employer] Work Phone: [phone] Sodium molar conc 142 mmol/L Invalid Interpretation Code 136-145 [employer] Work Phone: [phone] Urea nitrogen mass conc 10 mg/dL Invalid Interpretation Code 7-18 [employer] Work Phone: [phone] Urea nitrogen/Creatinine mass ratio 9.4 RATIO Low 10-20 [employer] Work Phone: [phone] Lab Report: CBC W/Diff, Auto matedon 02-04-2017 Basophils/100 leukocytes 0.4 % Invalid Interpretation Code 0-1 [facility] Work [phone] Basophils/100 WBC (Bld) 0.4 % 0-1 [employer] Work Phone: [phone] Eosinophils/100 leukocytes 3.1 % Invalid Interpretation Code 0-5 [facility] Work Phone: [phone] Eosinophils/100 WBC (Bld) 3.1 % 0-5 [employer] Work Phone: [phone] Erythrocyte distribution width Ratio (RBC) 12.7 % 11.6-14.6 [facility] Work Phone: [phone] Erythrocyte distribution width Ratio (RBC) 42.5 fL 35.1-43.9 [employer] Work Phone: [phone] Erythrocytes (RBC) 4.82 10*6/uL Invalid Interpretation Code 4.2-5.4 [employer] Work Phone: [phone] Hematocrit (HCT) 44.6 % Invalid Interpretation Code 37-47 [facility] Work Phone: [phone] Hematocrit Volume Fraction (Bld) 44.6 % 37-47 [facility] Work Phone: [phone] Hemoglobin (HGB) 15.0 g/dL Invalid Interpretation Code 12.0-15.0 [employer] Work Phone: [phone] Immature granulocytes #/vol (Bld) 0.100 % 0.0-0.9 [employer] Work Phone: [phone] immature granulocytes, percentage of total cells, blood 0.100 % Invalid Interpretation Code 0.0-0.9 [employer] Work Phone: [phone] Lymphocytes 2.02 X10 3/UL Invalid Interpretation Code 0.83-4.51 [employer] Work Phone: [phone] Lymphocytes #/vol (Bld) 2.02 X10 3/UL 0.83-4.51 [employer] Work Phone: [phone] Lymphocytes/100 leukocytes 28.8 % Invalid Interpretation Code 19-41 [employer] Work [phone] Lymphocytes/100 WBC (Bld) 28.8 % 19-41 [facility] Work [phone] MCH 31.1 pg Invalid Interpretation Code 27.0-32.0 [facility] Work Phone: [phone] MCH Entitic mass (RBC) 31.1 pg 27.0-32.0 [facility] Work [phone] MCHC 33.6 G/GL Invalid Interpretation Code 32-36 [facility] Work [phone] MCHC mass conc (RBC) 33.6 G/GL 32-[address] [facility] Work Phone: [phone] MCV 92.5 fL Invalid Interpretation Code 81-99 [facility] Work Phone: [phone] MCV Entitic volume (RBC) 92.5 fL 81-99 [facility] Work Phone: [phone] Monocytes/100 leukocytes 9.4 % Invalid Interpretation Code 0-10 [facility] Work Phone: [phone] Monocytes/100 WBC (Bld) 9.4 % 0-10 [facility] Work Phone: [phone] neutrophil count, blood 4.1 X10 3/UL Invalid Interpretation Code 2.0-7.7 [facility] Work Phone: [phone] Neutrophils #/vol (Bld) 4.1 X10 3/UL 2.0-7.7 [facility] Work Phone: [phone] Neutrophils/100 leukocytes 58.2 % Invalid Interpretation Code 47-70 [facility] Work Phone: [phone] Neutrophils/100 WBC (Bld) 58.2 % 47-70 [facility] Work Phone: [phone] Platelet mean volume Entitic volume (Bld) 11.2 fL 6.2-12.0 [facility] Work Phone: [phone] Platelets 185 10*3/mm3 Invalid Interpretation Code 150-450 [facility] Work Phone: [phone] Platelets #/vol (Bld) 185 10*3/mm3 150-450 [facility] Work Phone: [phone] PMV by Kitty 11.2 fL Invalid Interpretation Code 6.2-12.0 [employer] Work Phone: [phone] RBC #/vol (Bld) 4.82 10*6/uL 4.2-5.4 [employer] Work Phone: [phone] RDW-CA 12.7 % Invalid Interpretation Code 11.6-14.6 [employer] Work Phone: [phone] red blood cell distribution width, size density 42.5 fL Invalid Interpretation Code 35.1-43.9 [employer] Work Phone: [phone] WBC #/vol (Bld) 7.0 10*3/uL 4.4-11.0 [facility] Work Phone: [phone] WBC (Leukocytes) 7.0 10*3/uL Invalid Interpretation Code 4.4-11.0 [employer] Work Phone: [phone] Lab Report: Lipid Profileon 02-04-2017 Cholesterol in HDL mass conc 60 mg/dL Invalid Interpretation Code [employer] Work Phone: [phone] Cholesterol in LDL mass conc 111 mg/dL Invalid Interpretation Code 0-130 [employer] Work Phone: [phone] Cholesterol mass conc 204 mg/dL High 200 [facility] Work Phone: [phone] Lipoprotein.pre-beta mass conc 33 mg/dL Invalid Interpretation Code 5-40 [employer] Work Phone: [phone] Triglyceride mass conc 165 mg/dL Invalid Interpretation Code [facility] Work Phone: [phone] Lab Report: Liver Profileon 02-04-2017 Albumin mass conc 3.9 g/dL Invalid Interpretation Code 3.4-5.0 [employer] Work Phone: [phone] Alkaline phosphatase (ALP) 76 U/L Invalid Interpretation Code 45-117 [facility] Work Phone: [phone] ALP enzyme act/vol (Bld) 76 U/L 45-117 [facility] Work Phone: [phone] ALT enzyme act/vol 28 U/L Invalid Interpretation Code 12-78 [facility] Work Phone: [phone] AST enzyme act/vol 21 U/L Invalid Interpretation Code 15-37 [facility] Work Phone: [phone] Bilirubin mass conc 0.80 mg/dL Invalid Interpretation Code 0.20-1.00 [facility] Work Phone: [phone] Bilirubin.direct mass conc 0.16 mg/dL Invalid Interpretation Code 0.00-0.30 [facility] Work Phone: [phone] Globulin 3.4 g/dL Invalid Interpretation Code 2.3-3.5 [facility] Work Phone: [phone] Globulin mass conc (S) 3.4 g/dL 2.3-3.5 [facility] Work Phone: [phone] Protein mass conc 7.3 g/dL Invalid Interpretation Code 6.4-8.2 [employer] Work Phone: [phone] Lab Report: T4 Total, Thyrox inon 02-04-2017 T4 mass conc 7.1 ug/dL Invalid Interpretation Code 4.8-13.9 [employer] Work Phone: [phone] Lab Report: Thyroid Stim Hor craig (TSH)on 02-04-2017 Thyrotropin Qn 1.49 u[iU]/mL Invalid Interpretation Code 0.358-3.74 [employer] Phone: [phone] External Other: Preferred Me thod of Contacton 02-02-2017 methcontact secmsg [employer] Work Phone: [phone] Patient's prefered method of contact secmsg Invalid Interpretation Code [employer] Phone: [phone] Office Visiton 02-02-2017 Documentation of current medications (procedure) Done Invalid Interpretation Code [employer] Work Phone: [phone] Protein mass conc yes [employer] Work Phone: [phone] Protein mass conc Done [employer] Phone: [phone] Smoking cessation education (procedure) yes Invalid Interpretation Code [employer] Work Phone: [phone] Tobacco smoking status NHIS Current every day smoker [facility] Work Phone: Tobacco use [facility] Current every day smoker Invalid Interpretation Code [facility] Work Phone: Replaced Document: Adelfo MCMAHON Observationson 02-02-2017 EKG QRS axis 36 deg [facility] Work Phone: electrocardiogram interpretation Sinus Bradycardia Low voltage -possible pulmonary disease. ABNORMAL Invalid Interpretation Code [facility] Work Phone: GE use only - for [employer] import when terms are not otherwise specified 405 ms Invalid Interpretation Code [facility] Work Phone: Interpretation Sinus Bradycardia Lo w voltage -possible pulmonary disease. ABNORMAL [facility] Work Phone: P Dema 60 deg [facility] Work Phone: P wave axis, electrocardiogram 60 deg Invalid Interpretation Code [facility] Work Phone: SC Interval 136 ms [facility] Work Phone: SC interval, electrocardiogram 136 ms Invalid Interpretation Code [facility] Work Phone: Pulse (Heart Rate) 59 /min Invalid Interpretation Code [facility] Work Phone: QRS axis, electrocardiogram 36 deg Invalid Interpretation Code [facility] Work Phone: QRS Duration 86 ms [facility] Work Phone: QRS duration, electrocardiogram 86 ms Invalid Interpretation Code [facility] Work Phone: QT Interval new path ms [facility] Work Phone: QT interval, electrocardiogram new path ms Invalid Interpretation Code [facility] Work Phone: QTc Meyer 405 ms [facility] Work Phone: T Dema 41 deg [facility] Work Phone: T wave axis, electrocardiogram 41 deg Invalid Interpretation Code [facility] Work Phone: 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 Smoking cessation education (procedure) yes Invalid Interpretation Code [facility] Work Phone: Tobacco use [facility] Current every day smoker Invalid Interpretation Code [facility] Work Phone: Office Visit: [place]ening [place] [facility] 01-[facility]-2017 Documentation of current medications (procedure) Done Invalid Interpretation Code [facility] Work Phone: [phone] Fall risk assessment No Invalid Interpretation Code [facility] Work Phone: [phone] Protein mass conc Done [facility] Work Phone: [phone] Protein mass conc yes [facility] Work Phone: [phone] Smoking cessation education (procedure) yes Invalid Interpretation Code [facility] Work Phone: [phone] Tobacco smoking status NHIS Never Invalid Interpretation Code [facility] Work Phone: [phone] Tobacco smoking status NHIS Current every day smoker [facility] Work Phone: [phone] Tobacco use [facility] Current every day smoker Invalid Interpretation Code [facility] Work Phone: [phone] Office Visit: Screening [place] [facility] 08-12-2015 Breast Mammogram screening Normal Bilateral Invalid Interpretation Code [facility] Work Phone: [phone] Office Visit: Screening [place] [facility] 08-13-2014 General categories [interpretation] of Cervical or vaginal smear or scraping by Cyto stain hysterectomy Invalid Interpretation Code [facility] Work Phone: [phone] Vital Signs Date Time Vital Sign Value Performing Clinician Facility 04-24-2025 12:32-0400 Body height 157.48 cm Isaías Kang EMBOSSING PRESS OPERATOR APPRENTICE-C Work Phone: [facility] 04-24-2025 12:32-0400 Body mass index (BMI) [Ratio] 25.4 kg/m2 Isaías Kang EMBOSSING PRESS OPERATOR APPRENTICE-C Work Phone: [facility] 04-24-2025 12:32-0400 Body weight 63.04 kg Isaías Kang EMBOSSING PRESS OPERATOR APPRENTICE-C Work Phone: [facility] 04-24-2025 12:32-0400 Diastolic blood pressure 86 mm[Hg] Isaías Kang EMBOSSING PRESS OPERATOR APPRENTICE-C Work Phone: [facility] 04-24-2025 12:32-0400 Heart rate 67 /min Isaías Kang EMBOSSING PRESS OPERATOR APPRENTICE-C Work Phone: [facility] 04-24-2025 12:32-0400 Respiratory rate 18 /min Isaías Kang EMBOSSING PRESS OPERATOR APPRENTICE-C Work Phone: [facility] 04-24-2025 12:32-0400 Systolic blood pressure 121 mm[Hg] Isaías Kang EMBOSSING PRESS OPERATOR APPRENTICE-C Work Phone: [facility] 09-01-2022 07:41-0500 Body temperature 97.8 [degF] Dr. Ezequiel Najera Work Phone: [facility] 09-01-2022 07:41-0500 Diastolic blood pressure 63 mm[Hg] Dr. Ezequiel Najera Work Phone: [facility] 09-01-2022 07:41-0500 Heart rate 66 /min Dr. Ezequiel Najera Work Phone: [facility] 09-01-2022 07:41-0500 Respiratory rate 18 /min Dr. Ezequiel Najera Work Phone: [facility] 09-01-2022 07:41-0500 SaO2% (BldA) [Mass fraction] 99 % Dr. Ezequiel Najera Work Phone: [facility] 09-01-2022 07:41-0500 Systolic blood pressure 93 mm[Hg] Dr. Ezequiel Najera Work Phone: [facility] 09-01-2022 07:30-0500 Inhaled oxygen flow rate 2 L/min Dr. Ezequiel Najera Work Phone: [facility] 09-01-2022 06:15-0500 Body height 157.[address] Ezequiel Najera Work Phone: [facility] 09-01-2022 06:15-0500 Body mass index (BMI) [Ratio] 27.6 kg/m2 Dr. Ezequiel Najera Work Phone: [facility] 09-01-2022 06:15-0500 Body weight 68.[address] Ezequiel Najera Work Phone: [facility] 05-29-2022 07:46-0400 Body mass index (BMI) [Ratio] 27.4 kg/m2 Dr. Ezequiel Najera Work Phone: [facility] 05-29-2022 07:46-0400 Body temperature 97.4 [degF] Dr. Ezequiel Najera Work Phone: [facility] 05-29-2022 07:46-0400 Body weight 68.[address] Ezequiel Najera Work Phone: [facility] 05-29-2022 07:46-0400 Diastolic blood pressure 76 mm[Hg] Dr. Ezequiel Najera Work Phone: [facility] 05-29-2022 07:46-0400 Heart rate 71 /min Dr. Ezequiel Najera Work Phone: [facility] 05-29-2022 07:46-0400 Respiratory rate 16 /min Dr. Ezequiel Najera Work Phone: [facility] 05-29-2022 07:46-0400 SaO2% (BldA) [Mass fraction] 99 % Dr. Ezequiel Najera Work Phone: [facility] 05-29-2022 07:46-0400 Systolic blood pressure 118 mm[Hg] Dr. Ezequiel Najera Work Phone: [facility] 02-06-2022 09:51-0400 Body temperature 98.1 [degF] [facility] Work Phone: 02-06-2022 09:51-0400 Diastolic blood pressure 75 mm[Hg] [facility] Work Phone: 02-06-2022 09:51-0400 Heart rate 62 /min [facility] Work Phone: 02-06-2022 09:51-0400 Respiratory rate 16 /min [facility] Work Phone: 02-06-2022 09:51-0400 SaO2% (BldA) [Mass fraction] 98 % [facility] Work Phone: 02-06-2022 09:51-0400 Systolic blood pressure 106 mm[Hg] [facility] Work Phone: 02-06-2022 06:44-0400 Body height 157.48 cm [facility] Work Phone: 02-06-2022 06:44-0400 Body mass index (BMI) [Ratio] 26.6 kg/m2 [facility] Work Phone: 02-06-2022 06:44-0400 Body weight 66 kg [facility] Work Phone: 05-25-2019 18:36-0400 BMI (Body Mass Index) 25.24 kg/m2 [facility] 05-25-2019 18:36-0400 Body Temperature 98.6 [degF] [facility] 05-25-2019 18:36-0400 Body weight 62.6 kg [facility] 05-25-2019 18:36-0400 BP Diastolic 82 mm[Hg] [facility] 05-25-2019 18:36-0400 BP Systolic 115 mm[Hg] [facility] 05-25-2019 18:36-0400 Height 157.5 cm [facility] 05-25-2019 18:36-0400 Pulse (Heart Rate) 73 /min [facility] 05-25-2019 18:36-0400 Pulse Oximetry 98 % [facility] 05-25-2019 18:36-0400 Respiratory Rate 16 /min [facility] 03-15-2017 11:45-0400 BMI (Body Mass Index) 24.87 kg/m2 [facility] Work Phone: 03-15-2017 11:45-0400 BP Diastolic 62 mm[Hg] [facility] Work Phone: 03-15-2017 11:45-0400 BP Systolic 104 mm[Hg] [facility] Work Phone: 03-15-2017 11:45-0400 Height 157.48 cm [facility] Work Phone: 03-15-2017 11:45-0400 Pulse (Heart Rate) 72 /min [facility] Work Phone: 03-15-2017 11:45-0400 Respiratory Rate 18 /min [facility] Work Phone: 03-15-2017 11:45-0400 Weight 61.69 kg [facility] Work Phone: 02-02-2017 14:25-0400 Heart rate 59 /min [facility] Work Phone: 02-02-2017 14:02-0400 BMI (Body Mass Index) 24.87 kg/m2 Treva Verma [facility] Work Phone: 02-02-2017 14:02-0400 BP Diastolic 74 mm[Hg] [facility] Work [...] Phone: 02-02-2017 14:02-0400 Weight 61.69 kg [facility] Work Phone: 01-19-2017 14:56-0400 BMI (Body Mass Index) 23.96 kg/m2 Hermila Molina [facility] Work Phone: 01-19-2017 14:56-0400 Body Temperature 97.59 [degF] Hermila Molina [facility] Work Phone: 01-19-2017 14:56-0400 Body Temperature 97.6 [degF] Hermila Molina [facility] Work Phone: 01-19-2017 14:56-0400 BP Diastolic 82 mm[Hg] Hermila Molina [facility] Work Phone: 01-19-2017 14:56-0400 BP Systolic 124 mm[Hg] Hermila Molina [facility] Work Phone: 01-19-2017 14:56-0400 Height 157.48 cm Hermila Molina [facility] Work Phone: 01-19-2017 14:56-0400 Pulse (Heart Rate) 58 /min Hermila Molina [facility] Work Phone: 01-19-2017 14:56-0400 Pulse Oximetry 100 % Hermila Molina [facility] Work Phone: 01-19-2017 14:56-0400 Respiratory Rate 16 /min Hermila Molina [facility] Work Phone: 01-19-2017 14:56-0400 Weight 59.42 kg Hermila Molina [facility] Work Phone: Encounters Encounter Date Encounter Type Care Provider Facility Start: 07-19-2025 ambulatory Cheng Johansen ty:[facility] Start: 05-28-2025 ambulatory [facility] Facility:[facility] Start: 05-15-2025 ambulatory [facility] Facility:[facility] Start: 05-04-[address] Maycol Ji MD -Cardiovascular Services Work Phone: Start: 05-04-2025 ambulatory [facility] Facility:[facility] Start: 04-24-2025 End: 04-24-2025 ambulatory Isaías Kang EMBOSSING PRESS OPERATOR APPRENTICE-C Work Phone: -Laboratory Start: 04-24-2025 End: 04-24-[address] Maycol Ji MD -Laboratory Work Phone: Start: 04-24-2025 End: 04-24-[address] Maycol Ji MD -[facility] Work Phone: Start: 04-24-2025 End: 04-24-2025 ambulatory Isaías Kang EMBOSSING PRESS OPERATOR APPRENTICE-C Work Phone: -[facility] Start: 04-24-2025 End: 04-24-2025 ambulatory Maycol Ji Facility:[facility] Start: 03-22-2025 Encounter for genera l adult medical examination with abnormal findings Isaíasarminda Kang [facility] Start: 03-16-2025 End: 03-16-2025 ambulatory Isaías Kang EMBOSSING PRESS OPERATOR APPRENTICE-C Work Phone: -Labor[facility] [place] Start: 03-16-2025 End: 03-16-2025 Patient encounter procedure Isaías Kang EMBOSSING PRESS OPERATOR APPRENTICE-C -[facility] [place] Work Phone: Start: 03-16-2025 End: 03-16-2025 ambulatory Isaíasarminda Kang Facility:[facility] Start: 06-10-2024 End: 06-10-2024 Emergency department patient visit [facility] Facility:[facility] Start: 12-10-2023 Documentation procedure Mammog fuad Coordinator [facility] Department Start: 12-10-2023 Letter encounter Mammography Coordinator [facility] Start: 12-09-2023 End: 12-09-2023 ambulatory EZEQUIEL NAJERA Facility:[facility] Start: 12-09-2023 End: 12-09-2023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
--- NOTE | 2025-05-28 06:00 | ECHOD_ITS ---
Reason For Study Reason For Study: CHEST PAIN, SHORTNESS OF BREATH Procedure This was a 2D Doppler, Color Flow transthoracic echocardiogram. Exam performed in department. Left Ventricle Normal LV size. Left ventricular systolic function is normal. The left ventricular ejection fraction is 70 %. No regional wall motion abnormalities noted. Right Ventricle Normal RV size. Normal systolic function. Atria Normal left atrium. Normal right atrium. Mitral Valve Normal mitral valve. Tricuspid Valve Normal tricuspid valve. Mild (1+) tricuspid valve insufficiency. Pulmonary artery systolic pressure is 18 mmHg. Aortic Valve Normal aortic valve. Pulmonic Valve Normal pulmonic valve. Great Vessels Normal aortic root. The pulmonary artery is normal size. Inferior vena cava collapse with respiration. Pericardium/Pleural No pericardial effusion. MMode/2D Measurements & Calculations LVIDd: 4.1 cm IVSd: 0.72 cm LVOT diam: 2.1 cm LVIDs: 2.2 cm LVPWd: 1.0 cm LVOT area: 3.4 cm2 RVDd: 2.9 cm FS: 46.2 % LA dimension: 3.0 cm asc Aorta Diam: 3.6 cm LAV(MOD- bp): 33.4 ml LAV(MOD- bp) Indexed: 20.4 ml/m2 LAV(MOD- sp2): 39.9 ml LAV(MOD- sp4): 29.8 ml SV(MOD- sp4): 49.0 ml LVAd ap4: 23.9 cm2 LVAd ap2: 24.8 cm2 LVLd ap4: 7.2 cm LVLd ap2: 7.5 cm SI(MOD- sp4): 29.9 ml/m2 EDV(MOD-sp4): 64.8 ml EDV(MOD-sp2): 68.1 ml EDV(sp4-el): 67.2 ml EDV(sp2-el): 69.5 ml LVAs ap4: 9.9 cm2 LVAs ap2: 11.6 cm2 LVLs ap4: 5.4 cm LVLs ap2: 6.0 cm ESV(MOD-sp4): 15.8 ml ESV(MOD-sp2): 19.8 ml ESV(sp4-el): 15.4 ml ESV(sp2-el): 19.1 ml EF(MOD-sp4): 75.6 % EF(MOD-sp2): 70.9 % EF(sp4-el): 77.0 % SV(MOD-sp2): 48.3 ml SV(sp4-el): 51.8 ml LA A4 area: 13.4 cm2 SI(MOD-sp2): 29.5 ml/m2 LA dimension(2D): 3.0 cm TAPSE: 1.7 cm RA A4 area: 10.1 cm2 Time Measurements MV dec time: 0.21 sec Doppler Measurements & Calculations MV E max misha: 82.9 cm/sec Lat Peak E' Misha: 11.3 cm/sec Med Peak E' Misha: 12.6 cm/sec MV A max misha: 61.4 cm/sec E/E' lat: 7.3 E/E' med: 6.6 MV E/A: 1.4 MV V2 max: 97.1 cm/sec MV P1/2t max misha: 97.1 cm/sec Ao V2 max: 145.9 cm/sec MV max P.8 mmHg MV P1/2t: 74.2 msec Ao max P.5 mmHg MV V2 mean: 41.8 cm/sec MV dec slope: 383.0 cm/sec2 Ao V2 mean: 100.2 cm/sec MV mean P.93 mmHg Ao mean P.6 mmHg MV V2 VTI: 30.7 cm MVA(P1/2t): 3.0 cm2 Ao V2 VTI: 34.5 cm MVA(VTI): 2.6 cm2 AV (velocity ratio): 0.69 ELAINE(I,D): 2.3 cm2 ELAINE(V,D): 2.8 cm2 LV V1 max: 122.0 cm/sec SV(LVOT): 80.4 ml PA V2 max: 74.3 cm/sec LV V1 max P.0 mmHg LV V1 mean P.8 mmHg LV V1 mean: 77.6 cm/sec LV V1 VTI: 23.9 cm TR max misha: 189.1 cm/sec TR max P.3 mmHg ECHO/Echo Complete Interpretation Summary Normal LV size. Left ventricular systolic function is normal. The left ventricular ejection fraction is 70 %. Structurally normal valves. Ordering Physician: Maycol Ji Referring Physician: ISAÍAS GALLOWAY Performed By: Eduardo Hurtado RDCS
--- NOTE | 2025-05-28 10:10 | STRESSREP ---
Stress Test Report Date: 05/28/2025 Procedure: Pharmacologic stress nuclear imaging study Indications: Chest pain Consent: Per the patient Procedure: The patient underwent pharmacologic (Regadenoson 0.4mg ) evaluation with a peak heart rate of 79 beats per minute (48%predicted maximal heart rate) and a peak blood pressure of 118/80 mmHg. The baseline ECG demonstrated sinus rhythm. The peak pharmacologic ECG did not show any ischemic changes. [There were no cardiac dysrhythmias pretest, during pharmacologic infusion, or recovery]. [There was no complaint of chest discomfort during pharmacologic infusion or recovery]. The patient was injected with 11.4 millicuries of technetium 99m Cardiolite and subsequently rest SPECT Cardiolite nuclear imaging was obtained in the horizontal long, vertical long, and short axis views. The patient underwent pharmacologic (Regadenoson) evaluation. The patient was injected with 33.1 millicuries of technetium 99m Cardiolite and subsequently stress SPECT Cardiolite nuclear imaging was obtained in the horizontal long, vertical long, and short axis views. A gated Cardiolite study at peak stress was obtained. The examination was stopped secondary to completion of protocol. Rest and stress SPECT Cardiolite nuclear imaging status post realignment, normalization, and attenuation correction demonstrate did not show any fixed or reversible perfusion defects. [There is end systolic thickening and brightening]. [The gated Cardiolite study demonstrates myocardial thickening and inward wall motion]. The reported LVEF is 66%. Impression: 1. Pharmacologic (Regadenoson) evaluation 2. Peak pharmacologic ECG with no ischemic changes. 3. [There were no cardiac dysrhythmias pretest, during pharmacologic infusion, or recovery]. 5. [Rest and stress SPECT Cardiolite nuclear imaging demonstrate relative uniform tracer uptake and myocardial perfusion appearing within normal limits]. 6. The gated Cardiolite study reports an LVEF of 66%. This note was generated with [employer] software. It may contain incorrect words, spelling, and punctuation that were not noted in checking the note before signing.
== END | disposition home or self-care (01) ==
PROVIDERS: PCP Nurse Practitioner Family; Referring Provider Internal Medicine Cardiovascular Disease; Visit Provider Internal Medicine Cardiovascular Disease
DX: R06.02 Shortness of breath (principal); R06.09 Other forms of dyspnea; R07.89 Other chest pain; R00.2 Palpitations
CPT/HCPCS: 78452; 93017; 93306; A9500; A4216; J2785

== ENCOUNTER → 2025-06-22 | Outpatient (CLI) | payer BC, SELFPAY ==
--- NOTE | 2025-06-22 14:47 | CT_ITS ---
PROCEDURE: EXTREMITY UPPER WITHOUT CONTRA 06/22/2025 REASON FOR EXAM: OA/PRE OP Preoperative evaluation for right shoulder replacement. TECHNIQUE: Procedure Code: CTEUWO Modality: CT Procedure: EXTREMITY UPPER WITHOUT CONTRA Coronal and Sagittal reconstruction series were provided. One or more dose reduction techniques were used (e.g., Automated exposure control, adjustment of the mA and/or kV according to patient size, use of iterative reconstruction technique. RADIATION DOSE SUMMARY: CTDlvol: 22.11 mGy DLP: 505.31 mGycm COMPARISON: None FINDINGS: Bones: [id number] degree of joint space narrowing of the glenohumeral joint with the mild degree of degenerative spur formation. No evidence of fracture or dislocation. Soft Tissues: No soft tissue calcification or mass lesion. CT/Extremity Upper without Contra IMPRESSION: [id number] degree of joint space narrowing of the right shoulder with d egenerative changes. Reading Location: [place]
[2025-06-22 15:07] LABS: Hematocrit 43.2 % (37-47); Hemoglobin 14.6 g/dL (12.0-15.0); Immature Granulocytes Count 0.040 X10^3/uL (0.0-0.0); Mean Corp Hgb Conc 33.8 g/dL (32-36); Mean Corpuscular Volume 91.7 fL (81-99); Mean Platelet Vol. 10.4 fl (6.2-12.0); NRBC Flagged by Analyzer 0 % (0-5); Platelet Count 232 K/mm3 (150-450); RBC Distribution Width CV 12.2 % (11.6-14.6); RBC Distribution Width SD 41.7 fl (35.1-43.9); Red Blood Count 4.71 M/mm3 (4.2-5.4); White Blood Count 10.0 K/mm3 (4.4-11.0)
[2025-06-22 15:45] LABS: Albumin, Serum 4.5 g/dL (3.5-5.0); Anion Gap 12 (5-15); BUN 10 mg/dL (4-19); BUN/Creat Ratio 11.9 RATIO (10-20); Calcium,Total 9.6 mg/dL (7.6-11.0); Carbon Dioxide 21.7 mmol/L (21.0-32.0); Chloride 107 mmol/L (98-108); Glucose 95 mg/dL (70-99); Potassium 3.5 mmol/L (3.3-5.1)
[2025-06-22 16:03] LABS: Magnesium 2.3 mg/dL (1.5-2.2)
--- OUTSIDE RECORDS SUMMARY | 2025-06-22 16:57 | XMS RPT_ITS | CCD ---
Author Organization [facility] Inform ion Partnership [facility] Care Team Providers Care Woodwind Reeds Cutter Name Role Phone ABRIL Almonte, Valery Mercado Unavailable Unavailabl e Bayron, Treva Unavailable Unavailable Bayron, Treva Unavailable Unavailable ABRIL Almonte, Valery Mercado Unavailable Unavailabl e Yuko RN, Linda A Unavailable Unavailable Yuko RN, Linda A Unavailable Unavailable Yuko RN, Linda A Unavailable Unavailable Schloneger, Hermila E Unavailable Unavailable Schloneger, Hermila E Unavailable Unavailable Dalia Land Unavailable Unavailable Schloneger, Hermila E Unavailable Unavailable MD Scar, Ray Bernard Unavailable [phone] EvrmaAlondra pughi Unavailable Unavailable Verma, Treva Unavailable Unavailable Verma, Treva Unavailable Unavailable ABRIL Almonte, Valery Mercado Unavailable Unavailabl e Unavailable Primary Care Provider UnavailEzequiel Singh Primary Care Provider Ezequiel Najera Primary Care Provider SHEMAR MEREDITH Admitting Unavailable SHEMAR MEREDITH Referring Unavailable EZEQUIEL NAJERA Primary Care Unavailable EZEQUIEL NAJERA Primary Care Unavailable JANIYA WHALEY Attending Unavailable Dr. Ezequiel Najera Primary Care Provider Dr. Joon Swan Attending Provider [phone] Dr. Nkechi Lima Referring Provider [phone] Dr. Ezequiel Najera Referring Provider Dr. Joon Swan Other Provider [phone] EBENEZER MARKHAM Referring Unavailab EZEQUIEL Corona Primary Care Unavailable EBENEZER MARKHAM Attending Unavailab EBENEZER Davidson Referring Unavailab EZEQUIEL Corona Primary Care Unavailable EBENEZER MARKHAM Attending Unavailab yovany Najera MD, Ezequiel Roberts Primary Care Provider EZEQUIEL NAJERA Primary Care Unavailable NILESH, ISAÍAS Referring Unavailable Nilesh WHEAT GROWER-C, Isaías Primary Care Provider Nilesh WHEAT GROWER-C, Isaías Attending Provider Nilesh WHEAT GROWER-C, Isaías Referring Provider Garrison SUAREZ, Dr. Severino Attending Provider Nilesh WHEAT GROWER-C, Isaías Primary Care Physician Nilesh WHEAT GROWER-C, Isaías Attending Physician Garrison SUAREZ, Dr. Severino Attending Physician Dr. Maycol Ji MD Referring Provider Nilesh, Isaías Primary Care Unavailable Lino Carlisle Attending Unavailable Nilesh, Isaías Primary Care Unavailable Garrison, Maycol Referring Unavailable Garrison, Maycol Consulting Unavailable Garrison, Maycol Attending Unavailable Garrison, Maycol Attending Unavailable Nilesh, Isaías Primary Care Unavailable Nilesh, Isaías Referring Unavailable Nilesh, Isaías Primary Care Unavailable Garrison, Maycol Referring Unavailable Garrison, Maycol Attending Unavailable Spittle, Cheng Referring Unavailable Spittle, Cheng Attending Unavailable Nilesh, Isaías Primary Care Unavailable Naa WHEAT GROWER, Kandice Attending Unavailable Naa WHEAT GROWER, Kandice Referring Unavailable Nilesh, Isaías Primary Care Unavailable Spittle, Cheng Attending Unavailable Nilesh, Isaías Primary Care Unavailable Nilesh, Isaías Primary Care Unavailable Nilesh, Isaías Attending Unavailable Nilesh, Isaías Referring Unavailable Nilesh, Isaías Primary Care Unavailable Garrison, Maycol Attending Unavailable Garrison, Maycol Referring Unavailable Nilesh, Isaías Primary Care Unavailable Garrison, Maycol Attending Unavailable Garrison, Maycol Referring Unavailable Allergies Allergy Classification Reported Allergen(s) Allergy Type Date of Onset Reaction(s) Facility Opioid Agonists (1 source) Codeine; Translations: [CODEINE] Drug Allergy 9 [facility] Repository (16 sources) IVORY SOAP drug allergy 7 [facility] Work Phone: (16 sources) CODIENE drug allergy 7 [facility] Work Phone: (11 sources) Codeine; Translations: [CODEINE] Drug Allergy 9 Anaphylaxis [facility] (11 sources) Influenza Virus Vaccines; Translations: [INFLUENZA VIRUS VACCINES] Allergy to substance 2 Rash [facility] (2 sources) Codeine Drug Allergy 9 Anaphylaxis [facility] Work Phone: (2 sources) Ivory soap [Other] Propensity to adverse reactions 9 [facility] (1 source) OTHER; Translations: [OTHER] Propensity to adverse reactions (disorder) 9 [facility] Repository (3 sources) soap; Translations: [soap] Allergy to substance 5 unknown [facility] Comment on above: Ivory Soap (1 source) Codeine Drug Allergy 5 [facility] Repository Medications Current Medications Medication Drug Class(es) [...] One tablet by mouth daily ESCITALOPRAM OXALATE [id number] Dalia Land take 1 tablet by pattie th once daily escitalopram oxalate (LEXAPRO) 20 mg tablet Take 20 mg by mouth once daily. 0 Active Completed/Discontinued Medications Medication Drug Class(es) Dates Sig (Normalized) Sig (Original) ALPRAZolam 0.5 mg oral tablet (20 sources) Benzodiazepine Start: 01-19-2017 take 1 tablet by mouth once daily in the evening ALPRAZOLAM 0.5 MG TABS One half tablet by mouth every evening ALPRAZOLAM [id number] Treva Verma Start: 01-19-2017 take 1 tablet by pattie th three times daily ALPRAZOLAM 0.5 MG TABS One tablet by mouth three times daily ALPRAZOLAM [id number] Dalia Land Start: 04-25-2010 alprazolam(SHEREEN AX 0.5 [...] th once daily CARDIZEM CD 120 MG [id number] One tablet by mouth daily DILTIAZEM HCL COATED BEADS [id number] Ray Abbott MD Start: 03-18-2017 take 1 tablet by pattie th once daily CARDIZEM CD 240 MG [id number] One tablet by mouth daily DILTIAZEM HCL COATED BEADS [id number] Valery Almonte, ABRIL ibuprofen 800 mg oral tablet (2 sources) [...] MG tablet Discontinued 60 mg PO DAILY February 21, 2017 12:00am September [...] mg PO Q8H as needed for pain February 06, 2022 12:00am May 29, 2022 [...] disorder; Translations: [Other depressive episodes] 01-19-2017 Chronic Nonspecific chest pain (7 sources) Chest pain; Translations: [Chest pain, unspecified] Onset: 7 03-15-2017 Episodic Osteoarthritis (1 source) Primary osteoarthritis, right shoulder; Translations: [Primary osteoarthritis, right shoulder] Onset: 5 Chronic Other disorders of stomach and duodenum (6 sources) Intestinal metaplasia of gastric mucosa; Translations: [Intestinal metaplasia of antrum of stomach without dysplasia] 05-29-2022 Episodic Other gastrointestinal disorders (7 sources) Dysphagia; Translations: [Dysphagia, unspecified] 11-11-2018 Episodic Other lower respiratory disease (16 sources) Dyspnea on exertion; Translations: [Other forms of dyspnea] Onset: 7 02-02-2017 Episodic Other lower respiratory disease (2 sources) Shortness of breath; Translations: [Shortness of breath] [...] Comment on above: RESOLVED Residual codes; unclassified (2 sources) Other specified postprocedural states; Translations: [Other specified [...] Translations: [Other fatigue] Onset: 02-02-2017 02-02-2017 Episodic Other connective tissue disease (2 sources) [...] Test Name Value Interpretation Reference Range Facility Echo Complete 05-28-2025 Echo Complete [facility] [place] [address] Echo Complete 05/28/25 0904 MR#: [id number] Acct: [id number] Name: CHANCE MCFARLAND Rep #: [id number] : 1965 59 From: Lino Carlisle MD Attending Dr: Dr. Maycol Ji MD Status: REG CLI Ordering Dr: Maycol Ji MD Date: 05/28/25 Location: [facility] Sex: F C Admitted: Reason For Study Reason For Study: CHEST PAIN, SHORTNESS OF BREATH Procedure This was a 2D Doppler, Color Flow transthoracic echocardiogram. Exam performed in department. Left Ventricle Normal LV size. Left ventricular systolic function is normal. The left ventricular ejection fraction is 70 %. No regional wall motion abnormalities noted. Right Ventricle Normal RV size. Normal systolic function. Atria Normal left atrium. Normal right atrium. Mitral Valve Normal mitral valve. Tricuspid Valve Normal tricuspid valve. Mild (1+) tricuspid valve insufficiency. Pulmonary artery systolic pressure is 18 mmHg. Aortic Valve Normal aortic valve. Pulmonic Valve Normal pulmonic valve. Great Vessels Normal aortic root. The pulmonary artery is normal size. Inferior vena cava collapse with respiration. Pericardium/Pleural No pericardial effusion. MMode/2D Measurements Calculations LVIDd: 4.1 cm IVSd: 0.72 cm LVOT diam: 2.1 cm LVIDs: 2.2 cm LVPWd: 1.0 cm LVOT area: 3.4 cm2 RVDd: 2.9 cm FS: 46.2 % LA dimension: 3.0 cm asc Aorta Diam: 3.6 cm LAV(MOD-bp): 33.4 ml LAV(MOD-bp) Indexed: 20.4 ml/m2 LAV(MOD-sp2): 39.9 ml LAV(MOD-sp4): 29.8 ml SV(MOD-sp4): 49.0 ml LVAd ap4: 23.9 cm2 LVAd ap2: 24.8 cm2 LVLd ap4: 7.2 cm LVLd ap2: 7.5 cm SI(MOD-sp4): 29.9 ml/m2 EDV(MOD-sp4): 64.8 ml EDV(MOD-sp2): 68.1 ml EDV(sp4-el): 67.2 ml EDV(sp2-el): 69.5 ml LVAs ap4: 9.9 cm2 LVAs ap2: 11.6 cm2 LVLs ap4: 5.4 cm LVLs ap2: 6.0 cm ESV(MOD-sp4): 15.8 ml ESV(MOD-sp2): 19.8 ml ESV(sp4-el): 15.4 ml ESV(sp2-el): 19.1 ml EF(MOD-sp4): 75.6 % EF(MOD-sp2): 70.9 % EF(sp4-el): 77.0 % SV(MOD-sp2): 48.3 ml SV(sp4-el): 51.8 ml LA A4 area: 13.4 cm2 SI(MOD-sp2): 29.5 ml/m2 LA dimension(2D): 3.0 cm TAPSE: 1.7 cm RA A4 area: 10.1 cm2 Time Measurements MV dec time: 0.21 sec Doppler Measurements Calculations MV E max carin: 82.9 cm/sec Lat Peak E' Carin: 11.3 cm/sec Med Peak E' Carin: 12.6 cm/sec MV A max carin: 61.4 cm/sec E/E' lat: 7.3 E/E' med: 6.6 MV E/A: 1.4 MV V2 max: 97.1 cm/sec MV P1/2t max carin: 97.1 cm/sec Ao V2 max: 145.9 cm/sec MV max P.8 mmHg MV P1/2t: 74.2 msec Ao max P.5 mmHg MV V2 mean: 41.8 cm/sec MV dec slope: 383.0 cm/sec2 Ao V2 mean: 100.2 cm/sec MV mean P.93 mmHg Ao mean P.6 mmHg MV V2 VTI: 30.7 cm MVA(P1/2t): 3.0 cm2 Ao V2 VTI: 34.5 cm MVA(VTI): 2.6 cm2 AV (velocity ratio): 0.69 ELAINE(I,D): 2.3 cm2 ELAINE(V,D): 2.8 cm2 LV V1 max: 122.0 cm/sec SV(LVOT): 80.4 ml PA V2 max: 74.3 cm/sec LV V1 max P.0 mmHg LV V1 mean P.8 mmHg LV V1 mean: 77.6 cm/sec LV V1 VTI: 23.9 cm TR max carin: 189.1 cm/sec TR max P.3 mmHg ECHO/Echo Complete Interpretation Summary Normal LV size. Left ventricular systolic function is normal. The left ventricular ejection fraction is 70 %. Structurally normal valves. Ordering Physician: Maycol Ji Referring Physician: ISAÍAS GALLOWAY Performed By: Eduardo Hurtado RDCS 05/28/25 1530 Date Lino Carlisle MD CC: WHEAT GROWER-C Isaías Galloway; Dr. Maycol Ji MD Date Dictated: 05/28/25 0904 Date Transcribed: 05/28/25 1530 Environmental Systems Coordinator: Signed Normal [facility] Stress Reporton 05-28-2025 Stress Report [facility] [address] [place] [address] MR#: [id number] Acct: [id number] Name: CHANCE MCFARLAND Rep #: [id number] : 1965 59 From: Maycol Ji MD Primary Care: JACQUELYN Mensah Status: R EG CLI Referring Dr: Maycol Ji MD Sex: F C Stress Test Report Date: 05/28/2025 Procedure: Pharmacologic stress nuclear imaging study Indications: Chest pain Consent: Per the patient Procedure: The patient underwent pharmacologic (Regadenoson 0.4mg ) evaluation with a peak heart rate of 79 beats per minute (48%predicted maximal heart rate) and a peak blood pressure of 118/80 mmHg. The baseline ECG demonstrated sinus rhythm. The peak pharmacologic ECG did not show any ischemic changes. [There were no cardiac dysrhythmias pretest, during pharmacologic infusion, or recovery]. [There was no complaint of chest discomfort during pharmacologic infusion or recovery]. The patient was injected with 11.4 millicuries of technetium 99m Cardiolite and subsequently rest SPECT Cardiolite nuclear imaging was obtained in the horizontal long, vertical long, and short axis views. The patient underwent pharmacologic (Regadenoson) evaluation. The patient was injected with 33.1 millicuries of technetium 99m Cardiolite and subsequently stress SPECT Cardiolite nuclear imaging was obtained in the horizontal long, vertical long, and short axis views. A gated Cardiolite study at peak stress was obtained. The examination was stopped secondary to completion of protocol. Rest and stress SPECT Cardiolite nuclear imaging status post realignment, normalization, and attenuation correction demonstrate did not show any fixed or reversible perfusion defects. [There is end systolic thickening and brightening]. [The gated Cardiolite study demonstrates myocardial thickening and inward wall motion]. The reported LVEF is 66%. Impression: 1. Pharmacologic (Regadenoson) evaluation 2. Peak pharmacologic ECG with no ischemic changes. 3. [There were no cardiac dysrhythmias pretest, during pharmacologic infusion, or recovery]. 5. [Rest and stress SPECT Cardiolite nuclear imaging demonstrate relative uniform tracer uptake and myocardial perfusion appearing within normal limits]. 6. The gated Cardiolite study reports an LVEF of 66%. This note was generated with Seaters dictation software. It may contain incorrect words, spelling, and punctuation that were not noted in checking the note before signing. 05/28/25 1013 Date Maycol Ji MD CC: JACQUELYN Galloway; Dr. Maycol Ji MD Date Dictated: 05/28/25 1010 Date Transcribed: 05/28/25 1010 Environmental Systems Coordinator: KARINE Signed Normal [facility] Cardiology Visit Reporton Cardiology Visit Report [facility] [address] [place] [address] OFFICE VISIT Date of Service: 04/24/25 MR#: [id number] Acct: [id number] Name: CHANCE MCFARLAND Rep #: [id number] : 1965 Provider: Dr. Maycol Ji MD Age/Sex: 59/F Location[place] [facility] Status: Signed HPI HPI History of Present Illness Details: This lady has past medical history significant for GERD, esophagitis, nicotine dependence and SVT status post ablation in 1998 at the [facility]. She also thinks that she has [...] Yes (several- no dizziness, just states she's clumsy) [facility] Medical History Alcohol use Lichen planus-like dermatitis [...] Negative bruit (more content not included)... Normal [facility] TSH DL <= 0.005 mIU/L QnOrde red By: Maycol Ji on 04-24-2025 TSH Qn 1.520 uIU/mL 0.300-4.200 [facility] Thyroid Stim Hormone (TSH)on 04-24-2025 TSH 1.520 uIU/mL Normal 0.300-4.200 [facility] Comment on above: Performed By: #### L 501.9520 #### [facility] [address], [address] Absolute lymphocyte countOrd ered By: Isaías Galloway on 03-16-2025 Lymphocytes Auto (Unsp spec) [#/Vol] 3.35 10*3/uL 0.83-4.51 [facility] Absolute neutrophil countOrd ered By: Isaías Galloway on 03-16-2025 Neutrophils (Bld) [#/Vol] 5.3 10*3/uL 2.0-7.7 [facility] Anion gap in Serum or Plasma Ordered By: Isaíasarminda Galloway on 03-16-2025 Anion gap [Moles/Vol] 12 mmol/L 5-15 [facility] Automated lymphocyte count a s percentage of total leukocytesOrdered By: Isaías Galloway on 03-16-2025 Lymphocytes/100 WBC Auto (Unsp spec) 34.0 % 19-41 [facility] BUN/creatinine ratioOrdered By: Isaías Nilesh on 03-16-2025 Urea nitrogen/Creatinine [Mass ratio] 12.2 mg/mg 10-20 [facility] Basophil percentageOrdered B y: Isaías Galloway on 03-16-2025 Basophils/100 WBC (Bld) 0.8 % 0-1 [facility] Bilirubin, totalOrdered By: Ashland Nilesh on 03-16-2025 Bilirubin [Mass/Vol] 0.24 mg/dL 0.00-1.30 [facility] CBC W/Diff, Automatedon Absolute Lymph 3.35 X10 3/uL Normal 0.83-4.51 [facility] Comment on above: Performed By: #### L 500.4100, L100.0100, L500.4050 #### [facility] [address], [address] Absolute Neut 5.3 X10 3/uL Normal 2.0-7.7 [facility] Comment on above: Performed By: #### L 500.4100, L100.0100, L500.4050 #### [facility] [address] [place], [address] Basophils/100 WBC (Bld) 0.8 % Normal 0-1 [facility] Comment on above: Performed By: #### L 500.4100, L100.0100, L500.4050 #### [facility] [address], [address] Eosinophils/100 WBC (Bld) 2.8 % Normal 0-5 [facility] Comment on above: Performed By: #### L 500.4100, L100.0100, L500.4050 #### [facility] [address] [place], [address] Erythrocyte distribution width (RBC) [Ratio] 12.6 % Normal 11.6-14.6 [facility] Comment on above: Performed By: #### L 500.4100, L100.0100, L500.4050 #### [facility] [address] [place], [address] Hematocrit (Bld) [Volume fraction] 42.9 % Normal 37-47 [facility] Comment on above: Performed By: #### L 500.4100, L100.0100, L500.4050 #### [facility] [address], [address] Hemoglobin (Bld) [Mass/Vol] 14.3 g/dL Normal 12.0-15.0 [facility] Comment on above: Performed By: #### L 500.4100, L100.0100, L500.4050 #### [facility] [address], [address] IG% 0.400 Normal 0.0-0.9 [facility] Comment on above: Result Comment: IG% - Immature Granulocytes (promyelocytes, myelocytes and metamyelocytes) > 1% indicates that a LEFT SHIFT is Present. Performed By: #### L 500.4100, L100.0100, L500.4050 #### [facility] [address] [place], [address] Lymphocytes/100 WBC (Bld) 34.0 % Normal 19-41 [facility] Comment on above: Performed By: #### L 500.4100, L100.0100, L500.4050 #### [facility] [address] [place], [address] MCH (RBC) [Entitic mass] 31.0 pg Normal 27.0-32.0 [facility] Comment on above: Performed By: #### L 500.4100, L100.0100, L500.4050 #### [facility] [address] [place], [address] MCHC (RBC) [Mass/Vol] 33.3 g/dL Normal 32-36 [facility] Comment on above: Performed By: #### L 500.4100, L100.0100, L500.4050 #### [facility] [address] [place], [address] MCV (RBC) [Entitic vol] 93.1 fL Normal 81-99 [facility] Comment on above: Performed By: #### L 500.4100, L100.0100, L500.4050 #### [facility] [address] [place], [address] Monocytes/100 WBC (Bld) 8.5 % Normal 0-10 [facility] Comment on above: Performed By: #### L 500.4100, L100.0100, L500.4050 #### [facility] [address] [place], [address] Neutrophils/100 WBC (Bld) 53.5 % Normal 47-70 [facility] Comment on above: Performed By: #### L 500.4100, L100.0100, L500.4050 #### [facility] [address] [place], [address] Nucleated RBC (Bld) [#/Vol] 0 10*3/uL Normal 0-5 [facility] Comment on above: Performed By: #### L 500.4100, L100.0100, L500.4050 #### [facility] [address] [place], [address] Platelet mean volume (Bld) [Entitic vol] 10.8 fL Normal 6.2-12.0 [facility] Comment on above: Performed By: #### L 500.4100, L100.0100, L500.4050 #### [facility] [address] [place], [address] Platelets (Bld) [#/Vol] 235 10*3/uL Normal 150-450 [facility] Comment on above: Performed By: #### L 500.4100, L100.0100, L500.4050 #### [facility] [address], [address] RBC (Bld) [#/Vol] 4.61 10*6/uL Normal 4.2-5.4 [facility] Comment on above: Performed By: #### L 500.4100, L100.0100, L500.4050 #### [facility] [address] [place], [address] RDW SD 43.2 fl Normal 35.1-43.9 [facility] Comment on above: Performed By: #### L 500.4100, L100.0100, L500.4050 #### [facility] [address] [place], [address] WBC (Bld) [#/Vol] 9.9 10*3/uL Normal 4.4-11.0 [facility] Comment on above: Performed By: #### L 500.4100, L100.0100, L500.4050 #### [facility] [address], [address] Calculated very low density lipoprotein (VLDL) cholesterol measurementOrdered By: Isaías Galloway on 03-16-2025 Calculated very low density lipoprotein (VLDL) cholesterol measurement 51 mg/dL High 5-40 [facility] Carbon dioxide, total [Moles /volume] in Central venous bloodOrdered By: Isaías Galloway on 03-16-2025 CO2 [Moles/Vol] 24.6 mmol/L 21.0-32.0 [facility] Chloride assayOrdered By: Ra erbecca Galloway on 03-16-2025 Chloride [Moles/Vol] 104 mmol/L 98-108 [facility] Comprehensive Metabolic Prof ilon 03-16-2025 Albumin [Mass/Vol] 4.4 g/dL Normal 3.5-5.0 [facility] Comment on above: Performed By: #### L 500.4100, L100.0100, L500.4050 #### [facility] [address] [place], [address] Albumin/Globulin [Mass ratio] 1.6 {ratio} Normal 0.9-2.4 [facility] Comment on above: Performed By: #### L 500.4100, L100.0100, L500.4050 #### [facility] [address] [place], [address] ALK PHOS 100 U/L Normal 35-104 [facility] Comment on above: Performed By: #### L 500.4100, L100.0100, L500.4050 #### [facility] [address] [place], [address] ALT [Catalytic activity/Vol] 16 U/L Normal <=34 [facility] Comment on above: Performed By: #### L 500.4100, L100.0100, L500.4050 #### [facility] [address] [place], [address] AST [Catalytic activity/Vol] 22 U/L Normal <=31 [facility] Comment on above: Performed By: #### L 500.4100, L100.0100, L500.4050 #### [facility] [address] [place], [address] Bilirubin [Mass/Vol] 0.24 mg/dL Normal 0.00-1.30 [facility] Comment on above: Performed By: #### L 500.4100, L100.0100, L500.4050 #### [facility] [address] [place], [address] BUN/CRE 12.2 RATIO Normal 10-20 [facility] Comment on above: Performed By: #### L 500.4100, L100.0100, L500.4050 #### [facility] [address] [place], [address] Calcium [Mass/Vol] 9.6 mg/dL Normal 7.6-11.0 [facility] Comment on above: Performed By: #### L 500.4100, L100.0100, L500.4050 #### [facility] [address] [place], [address] Chloride [Moles/Vol] 104 mmol/L Normal 98-108 [facility] Comment on above: Performed By: #### L 500.4100, L100.0100, L500.4050 #### [facility] [address] [place], [address] CO2 [Moles/Vol] 24.6 mmol/L Normal 21.0-32.0 [facility] Comment on above: Performed By: #### L 500.4100, L100.0100, L500.4050 #### [facility] [address] [place], [address] Creatinine [Mass/Vol] 0.95 mg/dL Normal 0.70-1.20 [facility] Comment on above: Performed By: #### L 500.4100, L100.0100, L500.4050 #### [facility] [address] [place], [address] GAP 12 Normal 5-15 [facility] Comment on above: Performed By: #### L 500.4100, L100.0100, L500.4050 #### [facility] [address] [place], [address] GFR/1.73 sq M.predicted among non-blacks MDRD (S/P/Bld) [Vol rate/Area] 69 mL/min/{1.73_m2} Normal >60 [facility] Comment on above: Result Comment: mL/m in/1.73m2 CKD-EPI Creatinine Equation (2020) Performed By: #### L 500.4100, L100.0100, L500.4050 #### [facility] [address] [place], [address] Globulin (S) [Mass/Vol] 2.8 g/dL Normal 2.2-4.2 [facility] Comment on above: Performed By: #### L 500.4100, L100.0100, L500.4050 #### [facility] [address], [address] Glucose [Mass/Vol] 84 mg/dL Normal 70-99 [facility] Comment on above: Performed By: #### L 500.4100, L100.0100, L500.4050 #### [facility] [address] [place], [address] Potassium [Moles/Vol] 4.4 mmol/L Normal 3.3-5.1 [facility] Comment on above: Performed By: #### L 500.4100, L100.0100, L500.4050 #### [facility] [address] [place], [address] Sodium [Moles/Vol] 141 mmol/L Normal 133-145 [facility] Comment on above: Performed By: #### L 500.4100, L100.0100, L500.4050 #### [facility] [address] [place], [address] T PROT 7.1 g/dL Normal 5.9-8.4 [facility] Comment on above: Performed By: #### L 500.4100, L100.0100, L500.4050 #### [facility] [address] [place], [place], [id number] Urea nitrogen [Mass/Vol] 12 mg/dL Normal 4-19 [facility] Comment on above: Performed By: #### L 500.4100, L100.0100, L500.4050 #### [facility] [address] [place], [address] Eosinophil percentageOrdered By: Isaíasarminda Galloway on 03-16-2025 Eosinophils/100 WBC (Bld) 2.8 % 0-5 [facility] Erythrocyte distribution wid th ratioOrdered By: [facility] on 03-16-2025 Erythrocyte distribution width (RBC) [Ratio] 12.6 % 11.6-14.6 [facility] Erythrocyte distribution wid th standard deviationOrdered By: [facility] on 03-16-2025 Erythrocyte distribution width (RBC) [Ratio] 43.2 fl 35.1-43.9 [facility] Glomerular filtration rate ( GFR) estimation/1.73 sq m using serum, plasma, or whole bOrdered By: Isaíasarminda Galloway on 03-16-2025 GFR/1.73 sq M.predicted among non-blacks MDRD (S/P/Bld) [Vol rate/Area] 69 mL/min/{1.73_m2} >60 [facility] Comment on above: mL/min/1.73m2 CKD-EP I Creatinine Equation (2020) Hematocrit Auto (Bld) [Volum e fraction]Ordered By: Isaías Galloway on 03-16-2025 Hematocrit (Bld) [Volume fraction] 42.9 % 37-47 [facility] Hemoglobin measurementOrdere d By: Isaías Galloway on 03-16-2025 Hemoglobin (Bld) [Mass/Vol] 14.3 g/dL 12.0-15.0 [facility] Immature granulocytes/100 WB C Auto (Bld)Ordered By: Isaíasarminda Galloway on 03-16-2025 Immature granulocytes/100 WBC (Bld) 0.400 % 0.0-0.9 [facility] Comment on above: IG% - Immature Granu locytes (promyelocytes, myelocytes and metamyelocytes) > 1% indicates that a LEFT SHIFT is Present. LDL calc ser/plasOrdered By: Isaías Galloway on 03-16-2025 Cholesterol in LDL [Mass/Vol] 105 mg/dL [facility] Comment on above: Xetdmdfxub=376-709 m g/dL & Higher Hstg=582 mg/dL or greaterFriedwald Equation for LDL-C Laboratory - Chemistry and C hemistry - challengeOrdered By: Isaías Galloway on 03-16-2025 AST [Catalytic activity/Vol] 22 U/L <32 [facility] Lipid Profileon 03-16-2025 CHOL:HDL 4.43 Normal [facility] Comment on above: Performed By: #### L 500.4100, L100.0100, L500.4050 #### [facility] [address], [address] Cholesterol [Mass/Vol] 202 mg/dL High <=200 [facility] Comment on above: Result Comment: Chol esterol level, Desirable <200 mg/dL Borderline high cholesterol 200-239 mg/dL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
== END | disposition home or self-care (01) ==
PROVIDERS: Student in an Organized Health Care Education/Training Program; PCP Nurse Practitioner Family; Referring Provider Student in an Organized Health Care Education/Training Program; Visit Provider Student in an Organized Health Care Education/Training Program
DX: Z01.818 Encounter for other preprocedural examination (principal); M19.011 Primary osteoarthritis, right shoulder; M75.41 Impingement syndrome of right shoulder
CPT/HCPCS: 36415; 73200; 80048; 82040; 83735; 85025; 87081

== ENCOUNTER 2025-07-19 05:23 | Day surgery (SDC) | payer BC, SELFPAY ==
--- NOTE | 2025-06-20 16:43 | PAT.ANE_ITS ---
Pre-Assessment Diagnosis/Proposed Procedure Planned Operative Procedure(s): RIGHT SHOULDER BRYSON ARTHROPLASTY Anesthesia History Anesthesia History - manufacturing technology analyst: Anesthesia History - manufacturing technology analyst Hx Hospitalization No 06/20/25 15:41 Any Problems With Anesthesia No 06/20/25 15:41 Cholinesterase deficiency No 06/20/25 15:41 You/Your Family Experience No 06/20/25 15:41 fever (hyperthermia) with Relationship Recent Exposure to Contagious No 09/01/22 06:15 Disease Does patient have nerve No 06/20/25 15:41 stimulator Patient instructed to have device shut off --Does patient have Pacemaker or ICD? When Was Last Pacemaker Check QUESTION #4 FULL TEXT: You/Your Family Experience fever (hyperthermia) with Anesthesia Last Oral Intake Last Oral intake: Last Oral Intake NPO since Meds taken in AM with sips of water? Meds patient instructed to take am of surgery PONV PONV - manufacturing technology analyst: PONV - manufacturing technology analyst Female Yes 06/20/25 15:41 HX of Motion Sickness No 06/20/25 15:41 HX of N/V After Surgery No 06/20/25 15:41 Non-Smoker No 06/20/25 15:41 Duration of Surgery greater Yes 06/20/25 15:41 than 60 minutes Number of Risk Factors 2 06/20/25 15:41 PONV Score Moderate Risk 06/20/25 15:41 Height & Weight Height & Weight: Anesthesia: Height & Weight Height 5 ft 2 in 06/10/24 11:00 Respiratory Assessment Respiratory Assessment - manufacturing technology analyst: Respiratory Tract Infection Hx - manufacturing technology analyst Hx Respiratory Tract Infection No 06/20/25 15:41 STOP Sleep Apnea STOP Sleep Apnea - manufacturing technology analyst: STOP Sleep Apnea - manufacturing technology analyst Hx Hypertension No 06/20/25 15:41 Hx Sleep Apnea No 06/20/25 15:41 CPAP No 08/28/22 14:45 BIPAP Do you snore loudly (louder No 06/20/25 15:41 than talking or can be heard Do you often feel tired/ Yes 06/20/25 15:41 fatigued/ sleepy during daytime? Has anyone observed you stop No 06/20/25 15:41 breathing during sleep? STOP Results Negative 06/20/25 15:41 QUESTION #5 FULL TEXT : Do you snore loudly (louder than talking or can be heard through closed doors)? Tobacco Use History Tobacco Use History - manufacturing technology analyst: Tobacco Use History - manufacturing technology analyst Tobacco Use Smoking Status Current every day smoker 06/20/25 15:41 Hx Tobacco Use Yes 06/20/25 15:41 Years Smoking Packs Smoked per Day Smoking Cessation Date was within the last 15 years Hx Smoking Cessation Date Hx Smoking Cessation Counseling Hematologic Medial History Hematologic Hx - manufacturing technology analyst: Hematologic Medical Hx - land survey technician Hx of Blood Transfusion Yes 06/20/25 15:41 Hx of Transfusion in last 3 No 06/20/25 15:41 Months Date of Last Transfusion (if within last 3 months) Ever experience any problems No 06/20/25 15:41 with transfusion(s)? Specify any problems Hx of Preganancy in last 3 No 06/20/25 15:41 Months Nurse Filling Out Transfusion DSCHRIBER 06/20/25 15:41 & Questions: Date: 06/20/25 06/20/25 15:41 Time: 15:42 06/20/25 15:41 Patient unable to answer at this time (ie. confused, unrespo /Reproduction History /Reproductive History - manufacturing technology analyst: /Reproductive Hx- manufacturing technology analyst Hx Now No 06/20/25 15:41 Gestational Age (in weeks): EDC: Hx Hx Para Hx Section SAB No 06/20/25 15:41 Does the father of the baby or his family experience fever w Father of the baby Malignant Hypertension history comment [facility] Medical History (Updated 06/20/25 @ 16:01 by Reyna Oneill) Loss of hearing Wears glasses Post-menopausal Depression Anxiety Migraine headache History of IBS Gastric reflux History of echocardiogram History of Holter monitoring Chest pain Alcohol use Lichen planus-like dermatitis Arthritis Migraine headache Smoker History of edema Cardiology follow-up encounter History of stress test Headache Chronic bronchitis Breast lump in female Nicotine dependence Atrial flutter Home Medications ?Medication ?Instructions ?Recorded ?Last Taken ?Type escitalopram oxalate 20 mg tablet 20 mg PO QDAY Unknown History buspirone 10 mg tablet 10 mg PO DAILY PRN anxiety 0 04/24/25 Unknown History pantoprazole 20 mg tablet,delayed 20 mg PO DAILY PRN G ERD 06/20/25 Unknown History release Allergy/AdvReac Type Severity Reaction Status Date / Time soap Allergy Unknown unknown Verified 06/20/25 15:37 codeine Allergy Angioedema Verified 06/20/25 15:37 Influenza Virus Vaccines Allergy Hives Verified 06/20/25 15:37 Family History Aunt Breast cancer Cancer esophageal Diabetes Father Alcoholism /alcohol abuse Heart disease Mother Breast cancer Grandmother Breast cancer Cervical cancer Heart disease Uncle Heart disease Daughter Thyroid disorder Autoimmune disease Surgical History (Updated 06/20/25 @ 16:01 by Reyna Oneill) History of bunionectomy of left great toe History of esophagogastroduodenoscopy (EGD) Hx of colonoscopy Hx of foot surgery History of dilation and curettage H/O section History of removal of ovarian cyst H/O breast augmentation bilateral foot surgery History of tonsillectomy History of total abdominal hysterectomy History of radiofrequency ablation procedure for cardiac arrhythmia (~1998) Social History Smoking Status: Current every day smoker tobacco type: cigarettes second hand exposure: Yes alcohol intake: current details: occasional substance use type: does not use what type of physical activity do you participate in: other frequency: daily seatbelt use: always additional social history: USES IBUPROFEN Audit: Pertinent Findings HISTORY of Pertinent Findings History of Pertinent Findings: past medical history significant for GERD, esophagitis, nicotine dependence and SVT status post ablation in 1998 at the [facility]. She also thinks that she has been told that she has A-fib in the past. However according to her, she had ablation done for it many many years ago. The only record that we have is of an SVT ablation in 1998. No history of CVA or TIA. No history of heart failure. Pertinent Findings EKG Perinent findings: 04/2025: NSR with sinus arrhythmia, low voltage QRS Stress test pertinent findings: 05/2025: Negative stress test Echo (EF%) pertinent findings: 05/2025: Normal LV size. LVSF normal. LVEF 70%. Normal valves Additional pertinent findings: Holter monitor: 04/2025-05/2025: SR Recommendation Anesthesia Recommendation Anesthesia recommendation: OPTIMIZED for anesthesia
[2025-07-19] VITALS (11 sets, daily range): BP systolic 89–108; BP diastolic 61–86; PULSE 62–80; RESP 16; TEMP 36–37.1; O2SAT 91–100; BMI 25.8
--- OUTSIDE RECORDS SUMMARY | 2025-07-19 05:26 | XMS RPT_ITS | CCD ---
Author Organization [facility] Inform ion Partnership [facility] Care Team Providers Care Trace Evidence Technician Name Role Phone ABRIL Almonte, Valery Mercado [...] Unavailable Unavailable Verma, Treva Unavailable Unavailable ABRIL Amlonte, Valery Mercado Unavailable Unavailabl e Unavailable Primary Care Provider UnavailEzequiel Singh Primary Care Provider Ezequiel Najera Primary Care Provider SHEMAR MEREDITH Admitting Unavailable SHEMAR MEREDITH Referring Unavailable EZEQUIEL NAJERA Primary Care Unavailable EZEQUIEL NAJERA Primary Care Unavailable JANIYA WHALEY Attending Unavailable Dr. Ezequiel Najera Primary Care Provider Dr. Joon Swan Attending Provider Dr. Nkechi Lima Referring Provider [phone] Dr. Ezequiel Najera Referring Provider [phone] Joon Swan Other Provider EBENEZER MARKHAM Referring Unavailab EZEQUIEL Corona Primary Care Unavailable EBENEZER MARKHAM Attending Unavailab EBENEZER Davidson Referring Unavailab EZEQUIEL Corona Primary Care Unavailable EBENEZER MARKHAM Attending Unavailab yovany Najera MD, Ezequiel Roberts Primary Care Provider EZEQUIEL NAJERA Primary Care Unavailable NILESH, ISAÍAS Referring Unavailable Nilesh SPRING COILER-C, Isaías Primary Care Provider Nilesh SPRING COILER-C, Isaías Attending Provider Nilesh SPRING COILER-C, Isaías Referring Provider Garrison SUAREZ, Dr. Severino Attending Provider Nilesh SPRING COILER-C, Isaías Primary Care Physician Nilesh SPRING COILER-C, Isaías Attending Physician Garrison SUARZE, Dr. Severino Attending Physician Dr. Maycol Ji MD Referring Provider [phone] Nilesh, Isaías Primary Care Unavailable Lino Carlisle [...] Unavailable Nilesh, Isaías Primary Care Unavailable Naa SPRING COILER, Kandice Attending Unavailable Naa SPRING COILER, Kandice Referring Unavailable Nilesh, Isaías Primary Care [...] source) Codeine; Translations: [CODEINE] Drug Allergy 9 [facility] Repository (16 sources) IVORY SOAP drug allergy 7 [facility] Work Phone: (16 sources) CODIENE drug allergy 7 [facility] Work Phone: (11 sources) Codeine; Translations: [CODEINE] Drug Allergy 9 Anaphylaxis [facility] (11 sources) Influenza Virus Vaccines; Translations: [INFLUENZA VIRUS VACCINES] Allergy to substance [address] [facility] (2 sources) Codeine Drug Allergy 9 Anaphylaxis [facility] Work Phone: (2 sources) Ivory soap [Other] Propensity to adverse reactions 9 [facility] (1 source) OTHER; Translations: [OTHER] Propensity to adverse reactions (disorder) 9 [facility] Repository (3 sources) soap; Translations: [soap] Allergy to substance [address] [facility] Comment on above: Ivory Soap (1 source) Codeine Drug Allergy 5 [facility] Repository Medications Current Medications Medication Drug Class(es) [...] One tablet by mouth daily ESCITALOPRAM OXALATE [id number] Dalia Land take 1 tablet by pattie [...] half tablet by mouth every evening ALPRAZOLAM [id number] Treva Verma Start: 01-19-2017 take 1 tablet by pattie th three times daily ALPRAZOLAM 0.5 MG TABS One tablet by mouth three times daily ALPRAZOLAM [id number] Dalia Land Start: 04-25-2010 alprazolam(SHEREEN AX 0.5 [...] th once daily CARDIZEM CD 120 MG [id number] One tablet by mouth daily DILTIAZEM HCL COATED BEADS [id number] Ray Abbott MD Start: 03-18-2017 take 1 tablet by pattie th once daily CARDIZEM CD 240 MG [id number] One tablet by mouth daily DILTIAZEM HCL COATED BEADS [id number] Valery Almonte, ABRIL ibuprofen 800 mg oral [...] Range Facility Echo Complete 05-28-2025 Echo Complete [facility] [place] [address] Echo Complete 05/28/25 0904 MR#: [id number] Acct: [id number] Name: CHANCE MCFARLAND Rep #: [id number] : 1965 59 From: Lino Carlisle MD Attending Dr: Dr. Mayocl Ji MD Status: REG CLI Ordering Dr: Maycol Ji MD Date: 05/28/25 Location: [facility] Sex: F C Admitted: Reason For [...] 05/28/25 1530 Date Lino Carlisle MD CC: SPRING COILER-C Isaías Galloway; Dr. Maycol Ji MD Date Dictated: 05/28/25 0904 Date Transcribed: 05/28/25 1530 Correction Officer Head: Signed Normal [facility] Stress Reporton 05-28-2025 Stress Report [facility] [address] [place] [address] MR#: [id number] Acct: [id number] Name: CHANCE MCFARLAND Rep #: [id number] : 1965 59 From: Maycol Ji MD [...] of 66%. This note was generated with [employer] dictation software. It may contain incorrect words, spelling, and punctuation that were not noted in checking the note before signing. 05/28/25 1013 Date Maycol Ji MD CC: JACQUELYN Galloway; Dr. Maycol Ji MD Date Dictated: 05/28/25 1010 Date Transcribed: 05/28/25 1010 Correction Officer Head: KARINE Signed Normal [facility] Cardiology Visit Reporton Cardiology Visit Report [facility] [address] [place] [address] OFFICE VISIT Date of Service: 04/24/25 MR#: [id number] Acct: [id number] Name: CHANCE MCFARLAND Rep #: [id number] : 1965 Provider: Dr. Maycol Ji MD Age/Sex: 59/F [place] [facility] Status: Signed HPI HPI History of Present Illness Details: This lady has past medical history significant for GERD, esophagitis, nicotine dependence and SVT status post ablation in 1998 at the [facility]. She also thinks that she has been [...] (several- no dizziness, just states she's clumsy) [facility] Medical History Alcohol use Lichen planus-like dermatitis [...] Negative bruit (more content not included)... Normal [facility] TSH DL <= 0.005 mIU/L QnOrde red By: Maycol Ji on 04-24-2025 TSH Qn 1.520 uIU/mL 0.300-4.200 [facility] Thyroid Stim Hormone (TSH)on 04-24-2025 TSH 1.520 uIU/mL Normal 0.300-4.200 [facility] Comment on above: Performed By: #### L 501.9520 #### [facility] [address] [place], [address] Absolute lymphocyte countOrd ered By: Isaías Galloway on 03-16-2025 Lymphocytes Auto (Unsp spec) [#/Vol] 3.35 10*3/uL 0.83-4.51 [facility] Absolute neutrophil countOrd ered By: Isaías Galloway on 03-16-2025 Neutrophils (Bld) [#/Vol] 5.3 10*3/uL 2.0-7.7 [facility] Anion gap in Serum or Plasma Ordered By: Isaíasarminda Galloway on 03-16-2025 Anion gap [Moles/Vol] 12 mmol/L 5-15 [facility] Automated lymphocyte count a s percentage of total leukocytesOrdered By: Isaías Galloway on 03-16-2025 Lymphocytes/100 WBC Auto (Unsp spec) 34.0 % 19-41 [facility] BUN/creatinine ratioOrdered By: Isaías Nilesh on 03-16-2025 Urea nitrogen/Creatinine [Mass ratio] 12.2 mg/mg 10-20 [facility] Basophil percentageOrdered B y: Isaías Galloway on 03-16-2025 Basophils/100 WBC (Bld) 0.8 % 0-1 [facility] Bilirubin, totalOrdered By: Bushnell Nilesh on 03-16-2025 Bilirubin [Mass/Vol] 0.24 mg/dL 0.00-1.30 [facility] CBC W/Diff, Automatedon Absolute Lymph 3.35 X10 3/uL Normal 0.83-4.51 [facility] Comment on above: Performed By: #### L 500.4100, L100.0100, L500.4050 #### [facility] [address] [place], [address] Absolute Neut 5.3 X10 3/uL Normal 2.0-7.7 [facility] Comment on above: Performed By: #### L 500.4100, L100.0100, L500.4050 #### [facility] [address] [place], [address] Basophils/100 WBC (Bld) 0.8 % Normal 0-1 [facility] Comment on above: Performed By: #### L 500.4100, L100.0100, L500.4050 #### [facility] [address] [place], [address] Eosinophils/100 WBC (Bld) 2.8 % Normal 0-5 [facility] Comment on above: Performed By: #### L 500.4100, L100.0100, L500.4050 #### [facility] [address] [place], [address] Erythrocyte distribution width (RBC) [Ratio] 12.6 % Normal 11.6-14.6 [facility] Comment on above: Performed By: #### L 500.4100, L100.0100, L500.4050 #### [facility] [address] [place], [address] Hematocrit (Bld) [Volume fraction] 42.9 % Normal 37-47 [facility] Comment on above: Performed By: #### L 500.4100, L100.0100, L500.4050 #### [facility] [address] [place], [address] Hemoglobin (Bld) [Mass/Vol] 14.3 g/dL Normal 12.0-15.0 [facility] Comment on above: Performed By: #### L 500.4100, L100.0100, L500.4050 #### [facility] [address] [place], [address] IG% 0.400 Normal 0.0-0.9 [facility] Comment on above: Result Comment: IG% - Immature Granulocytes (promyelocytes, myelocytes and metamyelocytes) > 1% indicates that a LEFT SHIFT is Present. Performed By: #### L 500.4100, L100.0100, L500.4050 #### [facility] [address] [place], [address] Lymphocytes/100 WBC (Bld) 34.0 % Normal 19-41 [facility] Comment on above: Performed By: #### L 500.4100, L100.0100, L500.4050 #### [facility] [address] [place], [address] MCH (RBC) [Entitic mass] 31.0 pg Normal 27.0-32.0 [facility] Comment on above: Performed By: #### L 500.4100, L100.0100, L500.4050 #### [facility] [address] [place], [address] MCHC (RBC) [Mass/Vol] 33.3 g/dL Normal 32-36 [facility] Comment on above: Performed By: #### L 500.4100, L100.0100, L500.4050 #### [facility] [address] [place], [address] MCV (RBC) [Entitic vol] 93.1 fL Normal 81-99 [facility] Comment on above: Performed By: #### L 500.4100, L100.0100, L500.4050 #### [facility] [address] [place], [address] Monocytes/100 WBC (Bld) 8.5 % Normal 0-10 [facility] Comment on above: Performed By: #### L 500.4100, L100.0100, L500.4050 #### [facility] [address] [place], [address] Neutrophils/100 WBC (Bld) 53.5 % Normal 47-70 [facility] Comment on above: Performed By: #### L 500.4100, L100.0100, L500.4050 #### [facility] [address] [place], [address] Nucleated RBC (Bld) [#/Vol] 0 10*3/uL Normal 0-5 [facility] Comment on above: Performed By: #### L 500.4100, L100.0100, L500.4050 #### [facility] [address] [place], [address] Platelet mean volume (Bld) [Entitic vol] 10.8 fL Normal 6.2-12.0 [facility] Comment on above: Performed By: #### L 500.4100, L100.0100, L500.4050 #### [facility] [address] [place], [address] Platelets (Bld) [#/Vol] 235 10*3/uL Normal 150-450 [facility] Comment on above: Performed By: #### L 500.4100, L100.0100, L500.4050 #### [facility] [address] [place], [address] RBC (Bld) [#/Vol] 4.61 10*6/uL Normal 4.2-5.4 [facility] Comment on above: Performed By: #### L 500.4100, L100.0100, L500.4050 #### [facility] [address] [place], [address] RDW SD 43.2 fl Normal 35.1-43.9 [facility] Comment on above: Performed By: #### L 500.4100, L100.0100, L500.4050 #### [facility] [address] [place], [address] WBC (Bld) [#/Vol] 9.9 10*3/uL Normal 4.4-11.0 [facility] Comment on above: Performed By: #### L 500.4100, L100.0100, L500.4050 #### [facility] [address] [place], [address] Calculated very low density lipoprotein (VLDL) cholesterol measurementOrdered By: Isaías Galloway on 03-16-2025 Calculated very low density lipoprotein (VLDL) cholesterol measurement 51 mg/dL High 5-40 [facility] Carbon dioxide, total [Moles /volume] in Central venous bloodOrdered By: Isaías Galloway on 03-16-2025 CO2 [Moles/Vol] 24.6 mmol/L 21.0-32.0 [facility] Chloride assayOrdered By: Ra rebecca Galloway on 03-16-2025 Chloride [Moles/Vol] 104 mmol/L 98-108 [facility] Comprehensive Metabolic Prof ilon 03-16-2025 Albumin [Mass/Vol] 4.4 g/dL Normal 3.5-5.0 [facility] Comment on above: Performed By: #### L 500.4100, L100.0100, L500.4050 #### [facility] [address] [place], [address] Albumin/Globulin [Mass ratio] 1.6 {ratio} Normal 0.9-2.4 [facility] Comment on above: Performed By: #### L 500.4100, L100.0100, L500.4050 #### [facility] [address] [place], [address] ALK PHOS 100 U/L Normal 35-104 [facility] Comment on above: Performed By: #### L 500.4100, L100.0100, L500.4050 #### [facility] [address] [place], [address] ALT [Catalytic activity/Vol] 16 U/L Normal <=34 [facility] Comment on above: Performed By: #### L 500.4100, L100.0100, L500.4050 #### [facility] [address] [place], [address] AST [Catalytic activity/Vol] 22 U/L Normal <=31 [facility] Comment on above: Performed By: #### L 500.4100, L100.0100, L500.4050 #### [facility] [address] [place], [address] Bilirubin [Mass/Vol] 0.24 mg/dL Normal 0.00-1.30 [facility] Comment on above: Performed By: #### L 500.4100, L100.0100, L500.4050 #### [facility] [address] [place], [address] BUN/CRE 12.2 RATIO Normal 10-20 [facility] Comment on above: Performed By: #### L 500.4100, L100.0100, L500.4050 #### [facility] [address] [place], [address] Calcium [Mass/Vol] 9.6 mg/dL Normal 7.6-11.0 [facility] Comment on above: Performed By: #### L 500.4100, L100.0100, L500.4050 #### [facility] [address] [place], [address] Chloride [Moles/Vol] 104 mmol/L Normal 98-108 [facility] Comment on above: Performed By: #### L 500.4100, L100.0100, L500.4050 #### [facility] [address] [place], [address] CO2 [Moles/Vol] 24.6 mmol/L Normal 21.0-32.0 [facility] Comment on above: Performed By: #### L 500.4100, L100.0100, L500.4050 #### [facility] [address] [place], [address] Creatinine [Mass/Vol] 0.95 mg/dL Normal 0.70-1.20 [facility] Comment on above: Performed By: #### L 500.4100, L100.0100, L500.4050 #### [facility] [address] [place], [address] GAP 12 Normal 5-15 [facility] Comment on above: Performed By: #### L 500.4100, L100.0100, L500.4050 #### [facility] [address] [place], [address] GFR/1.73 sq M.predicted among non-blacks MDRD (S/P/Bld) [Vol rate/Area] 69 mL/min/{1.73_m2} Normal >60 [facility] Comment on above: Result Comment: mL/m in/1.73m2 CKD-EPI Creatinine Equation (2020) Performed By: #### L 500.4100, L100.0100, L500.4050 #### [facility] [address] [place], [address] Globulin (S) [Mass/Vol] 2.8 g/dL Normal 2.2-4.2 [facility] Comment on above: Performed By: #### L 500.4100, L100.0100, L500.4050 #### [facility] [address] [place], [address] Glucose [Mass/Vol] 84 mg/dL Normal 70-99 [facility] Comment on above: Performed By: #### L 500.4100, L100.0100, L500.4050 #### [facility] [address] [place], [address] Potassium [Moles/Vol] 4.4 mmol/L Normal 3.3-5.1 [facility] Comment on above: Performed By: #### L 500.4100, L100.0100, L500.4050 #### [facility] [address] [place], [address] Sodium [Moles/Vol] 141 mmol/L Normal 133-145 [facility] Comment on above: Performed By: #### L 500.4100, L100.0100, L500.4050 #### [facility] [address] [place], [address] T PROT 7.1 g/dL Normal 5.9-8.4 [facility] Comment on above: Performed By: #### L 500.4100, L100.0100, L500.4050 #### [facility] [address] [place], [place], [address] Urea nitrogen [Mass/Vol] 12 mg/dL Normal 4-19 [facility] Comment on above: Performed By: #### L 500.4100, L100.0100, L500.4050 #### [facility] [address] [place], [address] Eosinophil percentageOrdered By: Isaíasarminda Galloway on 03-16-2025 Eosinophils/100 WBC (Bld) 2.8 % 0-5 [facility] Erythrocyte distribution wid th ratioOrdered By: [facility] on 03-16-2025 Erythrocyte distribution width (RBC) [Ratio] 12.6 % 11.6-14.6 [facility] Erythrocyte distribution wid th standard deviationOrdered By: [facility] on 03-16-2025 Erythrocyte distribution width (RBC) [Ratio] 43.2 fl 35.1-43.9 [facility] Glomerular filtration rate ( GFR) estimation/1.73 sq m using serum, plasma, or whole bOrdered By: Isaíasarminda Galloway on 03-16-2025 GFR/1.73 sq M.predicted among non-blacks MDRD (S/P/Bld) [Vol rate/Area] 69 mL/min/{1.73_m2} >60 [facility] Comment on above: mL/min/1.73m2 CKD-EP I Creatinine Equation (2020) Hematocrit Auto (Bld) [Volum e fraction]Ordered By: Isaías Galloway on 03-16-2025 Hematocrit (Bld) [Volume fraction] 42.9 % 37-47 [facility] Hemoglobin measurementOrdere d By: Isaías Galloway on 03-16-2025 Hemoglobin (Bld) [Mass/Vol] 14.3 g/dL 12.0-15.0 [facility] Immature granulocytes/100 WB C Auto (Bld)Ordered By: Isaíasarminda Galloway on 03-16-2025 Immature granulocytes/100 WBC (Bld) 0.400 % 0.0-0.9 [facility] Comment on above: IG% - Immature Granu locytes (promyelocytes, myelocytes and metamyelocytes) > 1% indicates that a LEFT SHIFT is Present. LDL calc ser/plasOrdered By: Isaías Galloway on 03-16-2025 Cholesterol in LDL [Mass/Vol] 105 mg/dL [facility] Comment on above: Ponfoftlzk=655-025 m g/dL & Higher Ckrs=637 mg/dL or greaterFriedwald Equation for LDL-C Laboratory - Chemistry and C hemistry - challengeOrdered By: Isaías Galloway on 03-16-2025 AST [Catalytic activity/Vol] 22 U/L <32 [facility] Lipid Profileon 03-16-2025 CHOL:HDL 4.[address] [facility] Comment on above: Performed By: #### L 500.4100, L100.0100, L500.4050 #### [facility] [address] [place], [address] Cholesterol [Mass/Vol] 202 mg/dL High <=200 [facility] Comment on above: Result Comment: Chol esterol level, Desirable <200 mg/dL Borderline high cholesterol 200-239 mg/dL High cholesterol >=240 mg/dL Recommendations of the NCEP Adult Treatment Panel for the following risk-cutoff thresholds for the [place] population. Performed By: #### L 500.4100, L100.0100, L500.4050 #### [facility] [address] [place], [address] Cholesterol in HDL [Mass/Vol] 46 mg/dL Normal [facility] Comment on above: Result Comment: Richa onal Cholesterol Education Program (NCEP) guidelines: <40 mg/dL: Low HDL-cholesterol (major risk factor for CHD) >= 60 mg/dL: High HDL-cholesterol (negative risk factor for CHD) HDL-cholesterol is affected by a number of factors, e.g. smoking, exercise, hormones, sex and age. Performed By: #### L 500.4100, L100.0100, L500.4050 #### [facility] [address] [place], [address] Cholesterol in LDL [Mass/Vol] 105 mg/dL Normal [facility] Comment on above: Result Comment: Bord gxbuzc=335-107 mg/dL Higher Wqzd=803 mg/dL or greater Friedwald Equation for LDL-C Performed By: #### L 500.4100, L100.0100, L500.4050 #### [facility] [address] [place], [address] Cholesterol in VLDL [Mass/Vol] 51 mg/dL High 5-40 [facility] Comment on above: Performed By: #### L 500.4100, L100.0100, L500.4050 #### [facility] [address] [place], [address] Triglyceride [Mass/Vol] 255 mg/dL High [facility] Comment on above: Result Comment: The drugs N-Acetylcysteine and Metamizole may falsely depress this assay. Normal range: <150 mg/dL Borderline High: 150-199 mg/dL High: 200-499 mg/dL Very High: >500 mg/dL Performed By: #### L 500.4100, L100.0100, L500.4050 #### [facility] [address] [place], [address] MCV (mean corpuscular volume ) determinationOrdered By: Isaías Galloway on 03-16-2025 MCV (RBC) [Entitic vol] 93.1 fL 81-99 [facility] Mean corpuscular hemoglobin (MCH) determinationOrdered By: Isaías Galloway on 03-16-2025 MCH (RBC) [Entitic mass] 31.0 pg 27.0-32.0 [facility] Mean corpuscular hemoglobin concentration (MCHC) determinationOrdered By: Isaías Galloway on 03-16-2025 MCHC (RBC) [Mass/Vol] 33.3 g/dL 32-36 [facility] Mean platelet volume determi nationOrdered By: Isaías Galloway on 03-16-2025 Platelet mean volume (Bld) [Entitic vol] 10.8 fL 6.2-12.0 [facility] Monocyte percentageOrdered B y: Isaías Galloway on 03-16-2025 Monocytes/100 WBC (Bld) 8.5 % 0-10 [facility] Neutrophil percentageOrdered By: Isaías Galloway on 03-16-2025 Neutrophils/100 WBC (Bld) 53.5 % 47-70 [facility] Nucleated red blood cell per centageOrdered By: Isaías Galloway on 03-16-2025 Nucleated RBC/100 WBC (Bld) [Ratio] 0 % 0-5 [facility] Platelet countOrdered By: Ra rebecca Galloway on 03-16-2025 Platelets (Bld) [#/Vol] 235 10*3/uL 150-450 [facility] Potassium measurement (mass/ volume)Ordered By: Isaías Galloway on 03-16-2025 Potassium (Unsp spec) [Mass/Vol] 4.4 mmol/L 3.3-5.1 [facility] RBC Auto (Bld) [#/Vol]Ordere d By: Isaías Galloway on 03-16-2025 RBC (Bld) [#/Vol] 4.61 10*6/uL 4.2-5.4 [facility] Screening total cholesterol/ high density lipoprotein (HDL) cholesterol ratioOrdered By: Isaías Galloway 03-16-2025 Cholesterol.total/Lyric sterol in HDL [Mass ratio] 4.43 {ratio} [facility] Serum creatinine measurement (mass/volume)Ordered By: Isaías Galloway on 03-16-2025 Creatinine [Mass/Vol] 0.95 mg/dL 0.70-1.20 [facility] Serum globulin measurementOr dered By: Isaías Galloway 03-16-2025 Globulin (S) [Mass/Vol] 2.8 g/dL 2.2-4.2 [facility] Serum glucose measurement (m ass/volume)Ordered By: Isaías Galloway 03-16-2025 Glucose [Mass/Vol] 84 mg/dL 70-99 [facility] Serum or plasma alanine laguna otransferase (ALT) measurementOrdered By: Isaías Galloway 03-16-2025 ALT [Catalytic activity/Vol] 16 U/L <35 [facility] Serum or plasma albumin carlos manuel urement (mass/volume)Ordered By: Isaías Galloway on 03-16-2025 Albumin [Mass/Vol] 4.4 g/dL 3.5-5.0 [facility] Serum or plasma albumin/glob ulin mass ratioOrdered By: Isaías Galloway on 03-16-2025 Albumin/Globulin [Mass ratio] 1.6 {ratio} 0.9-2.4 [facility] Serum or plasma alkaline billy sphatase measurementOrdered By: Isaías Galloway on 03-16-2025 ALP [Catalytic activity/Vol] 100 U/L 35-104 [facility] Serum or plasma calcium carlos manuel urement (mass/volume)Ordered By: Isaías Galloway on 03-16-2025 Calcium [Mass/Vol] 9.6 mg/dL 7.6-11.0 [facility] Serum or plasma cholesterol in HDL measurement (mass/volume)Ordered By: Isaías Galloway on 03-16-2025 Cholesterol in HDL [Mass/Vol] 46 mg/dL >40 [facility] Comment on above: National Cholesterol Education Program (NCEP) guidelines:<40 mg/dL: Low HDL-cholesterol (major risk factor for CHD)>= 60 mg/dL: High HDL-cholesterol (negative risk factor for CHD)HDL-cholesterol is affected by a number of factors, e.g. smoking, exercise, hormones, sex and age. Serum or plasma cholesterol measurement (mass/volume)Ordered By: Isaías Galloway on 03-16-2025 Cholesterol [Mass/Vol] 202 mg/dL High <201 [facility] Comment on above: Cholesterol level, D esirable <200 mg/dLBorderline high cholesterol 200-239 mg/dLHigh cholesterol >=240 mg/dLRecommendations of the NCEP Adult Treatment Panel for the following risk-cutoff thresholds for the [place] population. Serum or plasma urea nitroge n measurement (mass/volume)Ordered By: Isaías Galloway on 03-16-2025 Urea nitrogen [Mass/Vol] 12 mg/dL 4-19 [facility] Sodium levelOrdered By: Ev Galloway on 03-16-2025 Sodium [Moles/Vol] 141 mmol/L 133-145 [facility] Total proteinOrdered By: Frank Galloway on 03-16-2025 Protein [Mass/Vol] 7.1 g/dL 5.9-8.4 [facility] Triglycerides measurementOrd ered By: Isaías Galloway on 03-16-2025 Triglyceride [Mass/Vol] 255 mg/dL High <199 [facility] Comment on above: The drugs N-Acetylcy steine and Metamizole may falsely depress this assay. Normal range: <150 mg/dLBorderline High: 150-199 mg/dLHigh: 200-499 mg/dLVery High: >500 mg/dL White blood cell (WBC) count Ordered By: Isaías Galloway on 03-16-2025 WBC (Bld) [#/Vol] 9.9 10*3/uL 4.4-11.0 [facility] CNCOon 12-10-2023 [facility] HNO ID: [id number] Author: COORDINATOR, MAMMOGRAPHY, ? Service: ? Author Type: Physician Type: Letter Filed: 12/10/2023 10:58 Note Text: December 10, 2023 PID: [id number] Chance Mcfarland [address] [place] [address] Dear Ms. Mcfarland, We are pleased to [...] report will be kept on file at [facility] as part of your permanent medical record and are available for your continuing care. Thank you for allowing us to help in meeting your health care needs. Sincerely, Dr. Vance Interpreting Radiologist [facility] (Normal over 40) Normal [facility] SCREENINGon 12-09-2023 [facility] SCREENING * * *Final Report* * * DATE OF EXAM: Dec 09 2023 2:41PM [facility] [id number] - [facility] SCREENING / PROCEDURE REASON: SCREENING FOR BREAST CANCER * * * * Physician Interpretation * * * * RESULT: #[id number] - [facility] SCREENING BILATERAL DIGITAL SCREENING MAMMOGRAM WITH [...] mammogram, 08/13/2020 mammogram, and 07/24/2020 mammogram - [facility]. The breasts are almost entirely fatty. Bilateral [...] 10:58:55 copy to: Lidia BANEGAS, ph: [phone] Director Financial Analysis(s): RT Miguel(R)(M), [facility] letter sent: Normal over 40 Mammogram BI-RADS: [...] Health, Family Medicine, and Medical/Surgical Oncology, the [facility] has carefully reviewed the data and [...] their providers when to stop screening mammograms. Correction Officer Head: Jens Transcribe Date/Time: Dec 09 2023 2:20P Dictated by: CHERYL VANCE MD This examination was interpreted and the report reviewed and electronically signed by: CHERYL VANCE MD on Dec 10 2023 10:58AM EST [id number] Normal [facility] Absolute lymphocyte countOrd ered By: Isaías Nilesh on 11-09-2023 Lymphocytes Auto (Unsp spec) [#/Vol] 2.09 10*3/uL 0.83-4.51 [facility] Automated lymphocyte count a s percentage of total leukocytesOrdered By: Isaías Galloway on 11-09-2023 Lymphocytes/100 WBC Auto (Unsp spec) 23.0 % 19-41 [facility] Basophil percentageOrdered B y: Isaías Galloway on 11-09-2023 Basophils/100 WBC (Bld) 0.7 % 0-1 [facility] Bilirubin [Mass/Vol] 0.50 mg/dL 0.20-1.00 [facility] Comment on above: For patients on eltr ombopag therapy, use of Dimension Crystal TBIL is not recommended. Chloride [Moles/Vol] 109 mmol/L 98-107 [facility] Cholesterol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
[2025-07-19] MEDS: LR 1,000 ML - BOLUS PREOP 999 ML IV (06:07)
--- NOTE | 2025-07-19 06:17 | PCM.PRE.AN2 ---
ASA Classification* ASA Classification ASA Classification: 2 Assessment & Plan Anesthesia* Anesthesia Assessment Anesthesia Assessment: Discussed sedation and/or anesthesia options, risks, benefits, and alternatives with patient/parents/legal guardian/POA. Questions invited. The patient/parents/legal guardian/POA seems to understand and agrees to proceed with anesthesia plan. Reviewed the physical assessment, medical history, allergy history and patient home medications list prior to surgery/procedure/anesthetic and documented any changes. Performed airway and anesthesia risk assessments. Anesthesia Type Anesthesia Type: General and Block (Patient is consented for interscalene block.) History Source History Obtained from:: Patient and Chart Anesthesia Focused Assessment* Temperature: 98.8 F Pulse Rate: 71 Blood Pressure: 108/86 Respiratory Rate: 16 Pulse Ox: 100 Oxygen Delivery Method: Room Air Airway Assessment Mouth opens: >3 cm Mallampati Score: I Teeth Condition: Caps/Crowns (Tooth #8 has a cap on it.) and Missing (Patient is missing a left lower molar. Rest of the teeth are tight.) Neck Range of motion (ROM): Full ROM Labs Anesthesia Preop lab: CBC WBC, (4.4-11.0) 10.0 K/mm3 06/22/25, :44 RBC, (4.2-5.4) 4.71 M/mm3 06/22/25, :44 Hgb, (12.0-15.0) 14.6 g/dL 06/22/25, :44 Hct, (37-47) 43.2 % 06/22/25, :44 Plt Count, (150-450) 232 K/mm3 06/22/25, :44 CHEMISTRY Potassium, (3.3-5.1) 3.5 mmol/L 06/22/25, :44 Sodium, (133-145) 141 mmol/L 06/22/25, :44 Magnesium, (1.5-2.2) 2.3 mg/dL H 06/22/25, :44 BUN, (4-19) 10 mg/dL 06/22/25, 14:44 Creatinine, (0.70-1.20) 0.85 mg/dL 06/22/25, :44 Glucose, (70-99) 95 mg/dL 06/22/25, 14:44 TSH, (0.300-4.200) 1.520 uIU/mL 04/24/25, 13:30 COAG Pre-Assessment Diagnosis/Proposed Procedure Planned Operative Procedure(s): RIGHT SHOULDER BRYSON ARTHROPLASTY Anesthesia History Anesthesia History - sampler radioactive waste: Anesthesia History - sampler radioactive waste Hx Hospitalization No 06/20/25 15:41 Any Problems With Anesthesia No 06/20/25 15:41 Cholinesterase deficiency No 06/20/25 15:41 You/Your Family Experience No 06/20/25 15:41 fever (hyperthermia) with Relationship Recent Exposure to Contagious No 09/01/22 06:15 Disease Does patient have nerve No 06/20/25 15:41 stimulator Patient instructed to have device shut off --Does patient have Pacemaker No 07/19/25 05:50 or ICD? When Was Last Pacemaker Check QUESTION #4 FULL TEXT: You/Your Family Experience fever (hyperthermia) with Anesthesia Last Oral Intake Last Oral intake: Last Oral Intake NPO since Meds taken in AM with sips of water? Meds patient instructed to take am of surgery Any additional information?: Yes NPO since: 03:00 (Patient had a preop Ensure at 3 AM.) Meds taken in AM with sips of water?: Yes Meds patient instructed to take am of surgery: Pantoprazole PONV PONV - sampler radioactive waste: PONV - sampler radioactive waste Female Yes 06/20/25 15:41 HX of Motion Sickness No 06/20/25 15:41 HX of N/V After Surgery No 06/20/25 15:41 Non-Smoker No 06/20/25 15:41 Duration of Surgery greater Yes 06/20/25 15:41 than 60 minutes Number of Risk Factors 2 06/20/25 15:41 PONV Score Moderate Risk 06/20/25 15:41 Height & Weight Height & Weight: Anesthesia: Height & Weight Height 5 ft 2 in 07/19/25 05:50 Weight: 64 kg 07/19/25 05:50 Body Mass Index (BMI) 25.8 07/19/25 05:50 Respiratory Assessment Respiratory Assessment - sampler radioactive waste: Respiratory Tract Infection Hx - sampler radioactive waste Hx Respiratory Tract Infection No 06/20/25 15:41 STOP Sleep Apnea STOP Sleep Apnea - sampler radioactive waste: STOP Sleep Apnea - sampler radioactive waste Hx Hypertension No 06/20/25 15:41 Hx Sleep Apnea No 06/20/25 15:41 CPAP No 08/28/22 14:45 BIPAP Do you snore loudly (louder No 06/20/25 15:41 than talking or can be heard Do you often feel tired/ Yes 06/20/25 15:41 fatigued/ sleepy during daytime? Has anyone observed you stop No 06/20/25 15:41 breathing during sleep? STOP Results Negative 06/20/25 15:41 QUESTION #5 FULL TEXT : Do you snore loudly (louder than talking or can be heard through closed doors)? Tobacco Use History Tobacco Use History - sampler radioactive waste: Tobacco Use History - sampler radioactive waste Tobacco Use Smoking Status Current every day smoker 06/20/25 15:41 Hx Tobacco Use Yes 06/20/25 15:41 Years Smoking Packs Smoked per Day Smoking Cessation Date was within the last 15 years Hx Smoking Cessation Date Hx Smoking Cessation Counseling Any additional information?: Yes Smoking Status: Current every day smoker (Patient smoked today.) Hematologic Medial History Hematologic Hx - sampler radioactive waste: Hematologic Medical Hx - rfid technician Hx of Blood Transfusion Yes 06/20/25 15:41 Hx of Transfusion in last 3 No 06/20/25 15:41 Months Date of Last Transfusion (if within last 3 months) Ever experience any problems No 06/20/25 15:41 with transfusion(s)? Specify any problems Hx of Preganancy in last 3 No 06/20/25 15:41 Months Nurse Filling Out Transfusion DSCHRIBER 06/20/25 15:41 & Questions: Date: 06/20/25 06/20/25 15:41 Time: 15:42 06/20/25 15:41 Patient unable to answer at this time (ie. confused, unrespo /Reproduction History /Reproductive History - sampler radioactive waste: /Reproductive Hx- sampler radioactive waste Hx Now No 06/20/25 15:41 Gestational Age (in weeks): EDC: Hx Hx Para Hx Section SAB No 06/20/25 15:41 Does the father of the baby or his family experience fever w Father of the baby Malignant Hypertension history comment Active Medications Active Medications: Current Medications Generic Name Dose Route Start Last Admin Trade Name Freq PRN Reason Stop Dose Admin Acetaminophen 1,000 mg 07/19/25 07:30 12/11/25 06:08 Acetaminophen 500 Mg Tablet PO 07/19/25 07:31 1,000 mg PREOP ONE Administration Celecoxib 400 mg 07/19/25 07:30 07/19/25 06:08 Celecoxib 200 Mg Capsule PO 07/19/25 07:31 400 mg PREOP ONE Administration Dexamethasone Sodium Phosphate 10 mg 07/19/25 07:30 Dexamethasone 10 Mg/Ml Vial IV 07/19/25 07:31 INTRAOP ONE Gabapentin 600 mg 07/19/25 07:30 07/19/25 06:08 Gabapentin 600 Mg Tablet PO 07/19/25 07:31 600 mg PREOP ONE Administration Lactated Ringer's 1,000 mls @ 999 mls/hr 07/19/25 07:30 07/19/25 06:07 IV 07/19/25 08:30 999 mls/hr .Q1H1M KATT Administration Cefazolin Sodium 2 gm/ Sodium 110 mls @ 150 mls/hr 07/19/25 07:30 Chloride IV 07/19/25 08:13 INTRAOP ONE Tranexamic Acid 1,000 mg/ 110 mls @ 660 mls/hr 07/19/25 07:30 Sodium Chloride IV 07/19/25 07:39 INTRAOP ONE Lactated Ringer's 1,000 mls @ 15 mls/hr 07/19/25 05:45 IV .Q48H KATT Insulin Human Lispro 1 - 6 unit 07/19/25 07:30 Insulin Lispro 100 Unit/Ml Insuln.Pen SC 07/19/25 13:30 Q4H PRN PRN BG>/= 180, SEE PROTOCOL Protocol PFSH Medical History Loss of hearing Wears glasses Post-menopausal Depression Anxiety Migraine headache History of IBS Gastric reflux History of echocardiogram History of Holter monitoring Chest pain Alcohol use Lichen planus-like dermatitis Arthritis Migraine headache Smoker History of edema Cardiology follow-up encounter History of stress test Headache Chronic bronchitis Breast lump in female Nicotine dependence Atrial flutter Home Medications ?Medication ?Instructions ?Recorded ?Last Taken ?Type escitalopram oxalate 20 mg tablet 20 mg PO QDAY 04/04/25 Unknown History buspirone 10 mg tablet 10 mg PO DAILY PRN anxiety 04/24/25 Unknown History pantoprazole 20 mg tablet,delayed 20 mg PO DAILY PRN GERD 06/20/25 07/19/25 03:00 History release Allergy/AdvReac Type Severity Reaction Status Date / Time soap Allergy Unknown unknown Verified 07/19/25 05:52 codeine Allergy Angioedema Verified 07/19/25 05:52 Influenza Virus Vaccines Allergy Hives Verified 07/19/25 05:52 Family History Aunt Breast cancer Cancer esophageal Diabetes Father Alcoholism /alcohol abuse Heart disease Mother Breast cancer Grandmother Breast cancer Cervical cancer Heart disease Uncle Heart disease Daughter Thyroid disorder Autoimmune disease Surgical History History of bunionectomy of left great toe History of esophagogastroduodenoscopy (EGD) Hx of colonoscopy Hx of foot surgery History of dilation and curettage H/O section History of removal of ovarian cyst H/O breast augmentation bilateral foot surgery History of tonsillectomy History of total abdominal hysterectomy History of radiofrequency ablation procedure for cardiac arrhythmia (~1998) Social History Smoking Status: Current every day smoker tobacco type: cigarettes second hand exposure: Yes alcohol intake: current details: occasional substance use type: does not use what type of physical activity do you participate in: other frequency: daily seatbelt use: always additional social history: USES IBUPROFEN Review of Systems (Anesthesia) ROS Narrative System reviewed and no additional complaints, except as documented.
[2025-07-19] MEDS: Lactated Ringers 1,000 ML 15 ML IV (07:09)
[2025-07-19] MEDS: Midazolam 2 MG/2 ML Syringe IV (07:16)
[2025-07-19] MEDS: Cefazolin 1 GM/5 ML Vial 2 GM IV (07:27)
[2025-07-19] MEDS: Lidocaine 1% (5 ml sdv) 5 ML Vial 6 ML IV (07:32)
[2025-07-19] MEDS: TRANEXAMIC ACID 1,000 MG/10 ML ML 1000 MG IV (07:37)
--- NOTE | 2025-07-19 10:00 | RAD_ITS ---
PROCEDURE: SHOULDER MIN 2 VIEWS 07/19/2025 REASON FOR EXAM: POST OP TECHNIQUE: Procedure Code: RADSH Modality: DX Procedure: SHOULDER MIN 2 VIEWS Laterality: Right COMPARISON: None FINDINGS: Bones: Right shoulder hemiarthroplasty. No fracture Joints: Normal alignment Soft tissues: Gas in the soft tissues deep to the deltoid following surgery is not unexpected. RAD/Shoulder min 2 Views IMPRESSION: Anatomic alignment following shoulder hemiarthroplasty. Reading Location: [id number]
--- NOTE | 2025-07-19 10:24 | PCM.POST.ANE ---
Anesthesia: Postop Eval I Current Vital Signs Temperature: 97.4 F Pulse Rate: 73 Blood Pressure: 97/61 Respiratory Rate: 16 Pulse Ox: 94 Assessment Airway patent: Yes Spontaneous unlabored respirations: Yes nausea: No Vomiting: No Anesthesia Complication: No Fluid Hydration Crystalloid volume administer (ml): 1,500 Total IV fluid infused: 1,500 Progress Note Anesthesia document: Postop Eval 1 completed: Yes
--- NOTE | 2025-07-19 12:35 | POSTOPAN2_ITS ---
Anesthesia Postop Eval I Sum Postop Eval Completion status Anesthesia document: Postop Eval 1 completed: Yes Anesthesia Postop Eval I Summary Anesthesia Postop Eval I Summary: Anesthesia Postop Eval I: Assessment Summary Airway patent Yes 07/19/25 10:24 DIRECTOR NURSES' REGISTRY.TNES Spontaneous unlabored Yes 07/19/25 10:24 DIRECTOR NURSES' REGISTRY.TNES respirations Mental status nausea No 07/19/25 10:24 DIRECTOR NURSES' REGISTRY.TNES Vomiting No 07/19/25 10:24 DIRECTOR NURSES' REGISTRY.TNES Anesthesia Postop Eval I: Fluid Summary Crystalloid volume administer 1,500 07/19/25 10:24 DIRECTOR NURSES' REGISTRY.TNES (ml) Colloids volume administered ( ml) Blood Product volume administered (ml) Total IV fluid infused 1,500 07/19/25 10:24 DIRECTOR NURSES' REGISTRY.TNES Anesthesia Postop Eval I: Summary Notes Anesthesia Complication No 07/19/25 10:24 DIRECTOR NURSES' REGISTRY.TNES Anesthesia Complication Comment: Post-operative progress note Anesthesia: Postop Eval II Evaluation Mental status: Awake Pain Level: 3 nausea: No Vomiting: No
--- NOTE | 2025-07-19 12:35 | PCM.POSTANE2 ---
Anesthesia Postop Eval I Sum Postop Eval Completion status Anesthesia document: Postop Eval 1 completed: Yes Anesthesia Postop Eval I Summary Anesthesia Postop Eval I Summary: Anesthesia Postop Eval I: Assessment Summary Airway patent Yes 07/19/25 10:24 [email or web address] Spontaneous unlabored Yes 07/19/25 10:24 [email or web address] respirations Mental status nausea No 07/19/25 10:24 [email or web address] Vomiting No 07/19/25 10:24 [email or web address] Anesthesia Postop Eval I: Fluid Summary Crystalloid volume administer 1,500 07/19/25 10:24 [email or web address] (ml) Colloids volume administered ( ml) Blood Product volume administered (ml) Total IV fluid infused 1,500 07/19/25 10:24 [email or web address] Anesthesia Postop Eval I: Summary Notes Anesthesia Complication No 07/19/25 10:24 [email or web address] Anesthesia Complication Comment: Post-operative progress note Anesthesia: Postop Eval II Evaluation Mental status: Awake Pain Level: 3 nausea: No Vomiting: No
--- NOTE | 2025-07-19 17:46 | PCM.OPRPT ---
Operative Report (Standard) Operative Information Date of Procedure: 07/19/25 Pre-Operative Diagnosis: Right primary glenohumeral joint osteoarthritis Post-Operative Diagnosis: Right primary glenohumeral joint osteoarthritis Surgery/Procedure Performed: Right shoulder hemiarthroplasty sole stitcher hand: Yes Scoop Operator: Brooklynn Diaz Tasks completed by sales operations assistant: Opening & closing, Implanting device and Hemostasis: Electrocautery Type of Anesthesia: General/Regional RN Documented Start/Stop Times: Operation Date: 07/19/25 07:30 Case Time Into Pre-Op 07/19/25 05:38 Out of Pre-Op 07/19/25 07:24 Anesthesia Start 07/19/25 07:27 Into Room 07/19/25 07:27 Procedure Start 07/19/25 07:58 Procedure End 07/19/25 09:22 Anesthesia End 07/19/25 09:31 Out of Room 07/19/25 09:31 Into Recovery 07/19/25 09:34 Into Phase II Recovery 07/19/25 10:25 Out of Recovery 07/19/25 10:25 Out of Phase II 07/19/25 11:52 Procedure Start Time: 07:58 Procedure Stop Time: 09:22 Select all DRAINS/GRAFTS/IMPLANTS that apply: Implanted device Implanted device details: Tornier flex shoulder system 3A 127.5, pirate carbon humeral head low eccentric 43 mm diameter 16 mm height Estimated Blood Loss: 50 cc Specimen collected: No Description of surgery: Patient was identified in the preoperative holding area by name, medical record number, and date of . The operative extremity was marked. All questions were answered to patient's satisfaction. Interscalene block was then administered by anesthesia staff. At time of her procedure, patient was brought to the operative suite and positioned supine on a standard operating table. General anesthesia was induced and endotracheal tube placed. Patient was then positioned in the beachchair position with all bony prominences well-padded. The wing of the bed was removed to access the scapula. Chest strap was applied. Blood pressure was appropriate for beach. Position. Provisional skin prep performed with hydrogen peroxide. We then prepped and draped the right upper extremity in normal, sterile orthopedic fashion with ChloraPrep. Timeout was called confirming the side, site, and operation to be performed. No concerns were voiced and elected proceed with surgery. 2 g Ancef was administered IV prior to incision by anesthesia staff as well as 1 g IV TXA. I first marked a standard deltopectoral incision just lateral to the coracoid process in line with the long axis of the humerus. Skin was sharply incised with 10 blade scalpel. I then dissected bluntly through the subcutaneous layers and found the fat stripe between the deltoid and pectoralis major. The cephalic vein was then identified and protected. It was retracted laterally with the deltoid. I then bluntly dissected underneath the deltoid with a Ryan elevator. Jian retractor was placed. I then identified the long head of the biceps tendon in the intertubercular groove. This was tenodesed in situ with #2 FiberWire. I then amputated the biceps proximal to the tenodesis site and followed the tendon to the supraglenoid tubercle where it was amputated. This identified the lesser and greater tuberosities. The supraspinatus was pristine. I then performed a subscapularis peel while rotating the humerus externally. I tagged the subscapularis for repair later with a tagging suture. Humeral head was then dislocated anteriorly. Eburnated humeral head was noted. Appropriate access to the humeral head was confirmed. I then subluxed the humeral head posteriorly with a Fukuda retractor placed around the posterior lip of the glenoid. Inferior capsule was tension. I was able to palpate the axillary nerve.3 sided subscapularis release was performed with Bovie cautery. I then remove the Fukuda retractor and redislocated the shoulder anteriorly. I then made a anatomic neck cut of the cartilaginous surface of the humeral head. Opening reaming was performed and I broached up to a size # 4 stem with excellent purchase. We trialed heads and reduced the shoulder several times with multiple trial heads. We settled upon a low offset low the centricity 43 mm head which demonstrated excellent tension and appropriate mobility without overt instability. I have performed a final dislocation. Trials were removed. Canal was irrigated copiously with normal saline. Drill holes were made for suture repair of the subscapularis with 4 suture tapes. Final stem was then impacted to plan position. Final reaming was performed for a flat cut surface. Final head was then impacted per route service manager recommendations with the specialized pirate carbon impaction device. Appropriate Sanabria taper purchase was noted. Final reduction was performed. Stability was maintained from trialing. I then performed a 3-minute Betadine soak of dilute sterile Betadine. The wound was copious irrigated normal saline then. The subscapularis was then repaired meticulously with 3 transosseous suture tapes sequentially tied and then a [id number] suture tape which applied excellent compression across the repair. Sutures were cut. Repair was stable to external and internal rotation. The rotator interval was then closed with interrupted [id number] suture tape. The wound was again irrigated. Fascia was reapproximated with running, locking #1 Vicryl suture. Skin was reapproximated with buried 2-0 Vicryl suture in the dermis and subcuticular 4-0 V-Loc. Sterile compression dressing silver Mepilex applied. A UltraSling was applied. Patient was awakened in the operative suite and safely extubated. She was transferred to her hospital bed and subsequent to PACU in stable condition. She tolerated the procedure well without apparent complication. Need for skilled assistant prosecuting attorney: Brooklynn Diaz PA-C was critical to the outcome of the case. During the course of the procedure the physician assistant prosecuting attorney played a vital role. Her intimate knowledge of my steps in the procedure aided in safe and expedient completion of the procedure. The PA played a vital role in positioning particularly in obtaining the appropriate positioning. The PA was also vital in the retraction of soft tissues during the exposure and protecting vital structures. The PA was also vital and protecting soft tissues during times of bony cuts. She also played a vital role in closure with my direct supervision. The PA was also important during reduction and dislocation of the joint and trials intraoperatively. Intraoperative medications: 2 g Ancef IV, 1 g TXA IV x2 Postoperative plan: Plan for same-day discharge after meeting same-day surgery criteria. Sling x 6 weeks. No external rotation beyond 30 degrees. Pendulums to start postoperative day #1. Follow-up in 2 weeks. Multimodal pain management with Tylenol, NSAIDs and oxycodone. Surgical Findings: Pristine rotator cuff. Stable right shoulder. Findings consistent with osteoarthritis. Complications Complications: No Admit VTE Documentation VTE Present on Admission: No VTE Mechan Device Prophylaxis: SCD's VTE Pharm Prophylaxis ordered?: Yes
== END 2025-07-19 11:52 | disposition home or self-care (01) ==
LOC: SDC 05:27 → AC 05:28
PROVIDERS: PCP Nurse Practitioner Family; Referring Provider Student in an Organized Health Care Education/Training Program; Visit Provider Student in an Organized Health Care Education/Training Program
PROC: (CPT 23472; principal; 2025-07-19 07:00)
DX: M19.011 Primary osteoarthritis, right shoulder (principal); F32.A Depression, unspecified; F41.9 Anxiety disorder, unspecified; F17.210 Nicotine dependence, cigarettes, uncomplicated; Z79.899 Other long term (current) drug therapy
CPT/HCPCS: 23470; 01630; 64415; 73030; 82962; C1776; J2405